=== PATIENT | female | born 1965 | race Caucasian/White ===

== ENCOUNTER 2018-08-22 12:54 | Inpatient (IN) | payer MEDICARE ==
[2018-08-22] MEDS ORDERED: Acetaminophen 500 MG TAB ONE (13:36)
[2018-08-22] MEDS ORDERED: Digoxin 0.5 MG/2 ML AMP ONE (17:16)
[2018-08-22] MEDS ORDERED: Ondansetron ODT 4 MG TAB PO PRN (20:53)
[2018-08-22] MEDS ORDERED: Diltiazem 125 MG in Sodium Chloride 0.9% 100 ML IVPB SCH (20:53)
[2018-08-22] MEDS ORDERED: Senokot S 8.6-50 MG TAB PO PRN (20:53)
[2018-08-22] MEDS ORDERED: Ondansetron PF 4 MG/2 ML Vial IVP PRN (20:53)
[2018-08-22] MEDS ORDERED: Acetaminophen 650 MG Suppository PR PRN (20:53)
[2018-08-22] MEDS ORDERED: Enoxaparin Sodium 30 MG/0.3 ML SYRINGE SC SCH (21:00)
[2018-08-22] MEDS: Diltiazem 125 MG in Sodium Chloride 0.9% 100 ML IVPB SCH (21:42)
[2018-08-22] MEDS: Acetaminophen 325 MG TAB PO PRN (21:43)
[2018-08-22] MEDS: clonazePAM 0.5 MG TAB PO SCH (21:43)
[2018-08-22] MEDS: Enoxaparin Sodium 100 MG/ML SYRINGE SC SCH (21:45)
[2018-08-22] MEDS: Famotidine 20 MG TAB PO SCH (21:46)
[2018-08-23] MEDS ORDERED: Furosemide 40 MG/4 ML VIAL SLOW IVP SCH ×2 (00:30→01:00)
[2018-08-23] MEDS: Furosemide 40 MG/4 ML VIAL SLOW IVP SCH ×2 (00:37→09:36)
--- NOTE | 2018-08-23 00:50 | PDOC.EVN ---
Event Note - Event Note Event Note: pt looks to be getting progressively tired and fatigued, due to increased respiratory effort, unable to lie flat, bilateral wheezing and crackles, milton give more lasix, nebs and bipap to help with respiratory effort, will monitor closely
[2018-08-23 00:51] LABS: Actual Bicarbonate (HCO3a) 30.6 mEq/L (22-28); Base Excess (BEa) 5.3 mEq/L (-2.0 to +3.0); CO2 Tension 48.1 mmHg (35.0-45.0); Carboxyhemoglobin (COHb) 1.3 gm% (0.0-3.0); Hemoglobin (Hb) 12.6 g/dL (12.0-16.0); O2 Tension (PaO2) 70.4 mmHg (80.0-100.0); pH, Arterial 7.42 (7.35-7.45)
[2018-08-23 00:52] LABS: ALV-art Gradient 126.155 (0-20); Calcium, Ionized 1.24 mmol/L (1.12-1.30); Potassium - ABG Lab 3.88 mmol/L (3.70-5.30); Puncture Site LRA
--- NOTE | 2018-08-23 01:33 | HP ---
PRIMARY CARE PHYSICIAN: Daryl Marc MD, in [place]. CHIEF COMPLAINT: Shortness of breath. HISTORY OF PRESENT ILLNESS: This is a 52-year-old white female with a past medical history of severe COPD on home oxygen of 3 L, as well as morbid obesity with previous bypass surgery and hypertension. She reports that she was in her normal state of health until about 2 to 3 days ago when she started getting significantly short of breath. Her oxygen was not helping her as much as previously and using nebulizers was not helping either. She noticed the shortness of breath was significantly worse when she laid down flat. She did not notice any peripheral edema at that time. The patient eventually came into the emergency room in [place]. There, she was noted to be hypoxic on 3 L into the 80s, had to be put on a non-rebreather and now just keep her in the low 90s and so, eventually she was put on a CPAP there with improvement in her oxygenation and shortness of breath. She was noted also to be in atrial fibrillation. This is new diagnosis of her with rapid ventricular rate in the 150s. She was given diltiazem boluses x2 and put on a drip. This helps her rate some, but still only into the mid to low 100s. The patient was also given a dose of Lasix and chest x-ray reportedly showed some vascular congestion. The patient was transferred here. On the way in the ambulance, she had some lower blood pressure, so her diltiazem drip was stopped. In the ER here, they were able to restart it, but she still had elevated rate. Dr. Hernandez was consulted and recommended starting digoxin. The patient got 0.5 mg dose of digoxin IV. Her heart rate has improved now about 100 since dropping below that as well and her breathing is much better. She is back on nasal cannula oxygen and saturating well. PAST MEDICAL HISTORY: 1. Hypertension. 2. COPD, on chronic oxygen. 3. Morbid obesity. PAST SURGICAL HISTORY: 1. Total abdominal hysterectomy. 2. Gastric bypass surgery, 8 years ago. PAST PSYCHIATRIC HISTORY: Anxiety. SOCIAL HISTORY: The patient used to smoke about a third to half pack per day for many years. Stopped 3 weeks ago. No alcohol or illicit drug use. She is disabled due to her COPD, used to work as a nurse in [place]. PAST FAMILY HISTORY: She denies knowledge of any family medical problems. ALLERGIES: NO KNOWN DRUG ALLERGIES. CURRENT MEDICATIONS: 1. Hydrochlorothiazide, unknown dose. 2. Clonazepam 2 mg at night. 3. Unknown nebulizer. REVIEW OF SYSTEMS: CONSTITUTIONAL: No fevers, no chills. EYES: No double vision or blurred vision. ENT: No congestion, drainage or sore throat. CARDIOVASCULAR: She has not noticed any chest pain or palpitations or racing heart. PULMONARY: See HPI. She has had a little bit of nonproductive cough. GASTROINTESTINAL: No abdominal pain. No nausea or vomiting. No diarrhea or constipation. GENITOURINARY: No dysuria or hematuria. MUSCULOSKELETAL: No muscle aches or joint pains. SKIN: No rashes or other lesions noted. NEUROLOGIC: She has not noticed any numbness, tingling, or focal weakness. PHYSICAL EXAMINATION: VITAL SIGNS: Blood pressure 127/82, pulse 113, respirations 24, temperature 98.0, and O2 saturation 95% on 3 L. GENERAL: This is a well-developed, obese white female with some mild increase in respiratory work of breathing. HEENT: Pupils are equal, round, and reactive to light. Oropharynx clear without lesions, erythema, or exudate. NECK: Supple. No lymphadenopathy. No thyroid nodules or enlargement. HEART: Irregularly irregular rhythm. Mild tachycardia. No murmurs, rubs, or gallops. LUNGS: Minimal crackles in the left base, otherwise clear to auscultation. Currently had significant crackles on initial presentation to the other ER. Decent air movement throughout. ABDOMEN: Soft, obese, nontender to palpation. Normoactive bowel sounds. No hepatosplenomegaly or other masses. EXTREMITIES: No clubbing, cyanosis, or edema. Good peripheral pulses. SKIN: No rashes or lesions noted. NEUROLOGIC: Intact strength and sensation in all extremities. No facial droop. LABORATORY DATA: CBC within normal limits. Coagulation profile with an INR of 1.4. D-dimer was 0.61. Complete metabolic panel is notable for sodium of 127, chloride of 93, glucose of 170, alkaline phosphatase 175. The rest was normal. Brain natriuretic peptide was elevated at 1000. Troponins are negative x3. Chest x- ray, I did review the chest x-ray done in the [place] [facility] along with the radiologist's report. The patient does have an enlarged cardiac silhouette and evidence of congestive failure. EKG done in the emergency room showed atrial fibrillation with rapid ventricular response. No other significant abnormalities. ASSESSMENT: 1. Acute on chronic hypoxic respiratory failure likely secondary to pulmonary congestion, improved now off CPAP, back on her home oxygen. We will monitor closely in the IMCU. We will give DuoNeb as needed. 2. Acute congestive heart failure. We will continue Lasix IV for control of rate. We will get echocardiogram in the morning. 3. New onset atrial fibrillation with rapid ventricular response. We will continue diltiazem drip and give digoxin daily as well. Dr. Hernandez has been consulted by the Emergency Room. We will put patient on full-dose Lovenox. 4. Chronic obstructive pulmonary disease, oxygen dependent. We will consult Dr. Higginbotham for assistance with managing this patient's chronic obstructive pulmonary disease issue. If she is not already on a steroid inhaler, she would likely benefit from one. 5. Gastrointestinal prophylaxis. Put the patient on Pepcid twice a day. 6. Deep venous thrombosis prophylaxis. The patient is already on Lovenox. 7. Hyponatremia. This is likely due to congestive heart failure. Will monitor for improvement with diuresis. 8. Code status. I did discuss this with the patient. She is a full code. Should she be incapacitated, she states that her daughter would be her medical decision maker. Her name is Paula Crane. Job ID: [id number] MTDD
[2018-08-23 06:07] LABS: #Lymphocytes 0.3 thou/uL (1.20-3.40); #Monocytes 0.3 thou/uL (0.11-0.59); #Neutrophils 3.6 thou/uL (1.40-6.50); %Eosinophils 0.1 % (0.0-10.0); %Lymphocytes 6.5 % (21.0-51.0); %Monocytes 6.5 % (0.0-10.0); %Neutrophils 86.9 % (42.0-75.0); Hemoglobin 12.9 g/dL (12.0-16.0); Mean Corpuscular HGB CONC 31.7 g/dL (32.0-36.0); Mean Corpuscular Volume 91.5 fL (78.0-98.0); Mean Platelet Volume 8.5 fL (7.4-10.4); Platelet Count 146 thou/uL (130-400); RBC Distribution Width 13.3 % (11.5-14.5); Red Blood Cell (RBC) Count 4.46 mill/uL (4.20-5.40); White Blood Cell (WBC) Count 4.1 thou/uL (4.8-10.8)
[2018-08-23 06:26] LABS: Anion Gap 13 mmol/L (10-20); BUN (Urea Nitrogen) 9 mg/dL (7.0-18.7); Calc. Creatinine Clearance 213 mL/min (70-130); Carbon Dioxide 27 mmol/L (22-29); Chloride 93 mmol/L (98-107); Estimated GFR-MDRD Greater than 90; Glucose 127 mg/dL (70-105); Potassium 3.7 mmol/L (3.5-5.1); Sodium 129 mmol/L (136-145)
[2018-08-23] MEDS: Famotidine 20 MG TAB PO SCH ×2 (09:33→20:45)
[2018-08-23] MEDS: Digoxin 0.25 MG TAB PO SCH (09:34)
[2018-08-23] MEDS: Enoxaparin Sodium 100 MG/ML SYRINGE SC SCH ×2 (09:34→20:46)
[2018-08-23] MEDS: Diltiazem 125 MG in Sodium Chloride 0.9% 100 ML IVPB SCH ×2 (10:07→23:05)
[2018-08-23] MEDS ORDERED: Digoxin 0.5 MG/2 ML AMP SLOW IVP SCH (10:15)
--- NOTE | 2018-08-23 11:50 | PDOC.PN ---
- Subjective Encounter Start Date: 08/23/18 Encounter Start Time: 10:45 Subjective: has sob, no c/o chest pain -: ate her breakfast this am -: no fever - Objective Resuscitation Status - Order Detail: 08/22/18 18:33 Resuscitation Status Routine Resuscitation Status: FULL: Full Resuscitation Discussed with: Shital WEBSTER Reviewed: Yes Vital Signs & Weight: Vital Signs (12 hours) Temp Pulse Resp Pulse Ox 08/23/18 10:55 127 H 31 H 92 L 08/23/18 10:10 137 H 08/23/18 09:34 137 H 08/23/18 07:32 137 H 32 H 92 L 08/23/18 07:25 97.0 F L 08/23/18 04:00 97.6 F 08/23/18 02:46 104 H 28 H 94 L 08/23/18 01:00 127 H 24 H 95 08/23/18 00:53 118 H 28 H 96 08/23/18 00:36 97.9 F Weight Weight 291 lb 4.8 oz Most Recent Monitor Data Heart Rate from ECG 151 NIBP 139/113 NIBP BP-Mean 121 Respiration from ECG 29 SpO2 88 I&O: 08/22/18 08/23/18 08/24/18 06:59 06:59 06:59 Intake Total 610 Output Total 2350 Balance -1740 Result Diagrams: 08/23/18 05:57 08/23/18 05:57 Additional Labs: Accuchecks 08/23/18 00:06 POC Glucose 128 H Phys Exam - Physical Examination HEENT: PERRLA, moist MMs Neck: no JVD, supple Respiratory: no rales wheezes+ Cardiovascular: no significant murmur, irregular Gastrointestinal: soft, non-tender, positive bowel sounds Musculoskeletal: no edema, pulses present Neurological: non-focal, moves all 4 limbs Psychiatric: A&O x 3 Dx/Plan (1) Atrial fibrillation with RVR Code(s): I48.91 - UNSPECIFIED ATRIAL FIBRILLATION Status: Acute (2) Acute exacerbation of CHF (congestive heart failure) Code(s): I50.9 - HEART FAILURE, UNSPECIFIED Status: Suspected Qualifiers: Heart failure type: diastolic Qualified Code(s): I50.33 - Acute on chronic diastolic (congestive) heart failure (3) Acute bronchitis Code(s): J20.9 - ACUTE BRONCHITIS, UNSPECIFIED Status: Acute Qualifiers: Bronchitis organism: unspecified organism Qualified Code(s): J20.9 - Acute bronchitis, unspecified (4) Obesity Code(s): E66.9 - OBESITY, UNSPECIFIED Status: Chronic (5) Anxiety disorder Code(s): F41.9 - ANXIETY DISORDER, UNSPECIFIED Status: Chronic Qualifiers: Anxiety disorder type: unspecified anxiety disorder Qualified Code(s): F41.9 - Anxiety disorder, unspecified (6) HTN (hypertension) Code(s): I10 - ESSENTIAL (PRIMARY) HYPERTENSION Status: Chronic Qualifiers: Hypertension type: essential hypertension Qualified Code(s): I10 - Essential (primary) hypertension - Plan is on cardizem drip, digoxin, lovenox full dose -: lasix, nebs, will add steroids with rapid taper -: echo, cardio consultation -: keep her on liq diet until her rvr settles down -: early mobilization in room * . Review of Systems - Medications/Allergies Allergies/Adverse Reactions: Allergies Allergy/AdvReac Type Severity Reaction Status Date / Time No Known Allergies Allergy Verified 08/22/18 20:50 Medications: Current Medications Acetaminophen (Tylenol) 650 mg PO Q4H PRN PRN Reason: Headache/Fever/Mild Pain (1-3) Last Admin: 08/22/18 21:43 Dose: 650 mg Acetaminophen (Tylenol) 650 mg [place] Q4H PRN PRN Reason: Headache/Fever/Mild Pain (1-3) Albuterol/Ipratropium (Duoneb) 3 ml NEB [id number] [facility] Last Admin: 08/23/18 10:55 Dose: 3 ml Clonazepam (Klonopin) 2 mg PO HS [facility] Last Admin: 08/22/18 21:43 Dose: 2 mg Digoxin (Lanoxin) 0.25 mg PO DAILY [facility] Last Admin: 08/23/18 09:34 Dose: 0.25 mg Digoxin (Lanoxin) 0.25 mg SLOW IVP NOW [facility] Stop: 08/23/18 12:15 Last Admin: 08/23/18 10:10 Dose: 0.25 mg Enoxaparin Sodium (Lovenox) 100 mg SC 0900,2100 [facility] Last Admin: 08/23/18 09:34 Dose: 100 mg Famotidine (Pepcid) 20 mg PO BID [facility] Last Admin: 08/23/18 09:33 Dose: 20 mg Furosemide (Lasix) 40 mg SLOW IVP DAILY [facility] Last Admin: 08/23/18 09:36 Dose: 40 mg Guaifenesin/Dextromethorphan (Robitussin Dm) 15 ml PO Q4H PRN PRN Reason: Cough Diltiazem HCl 125 mg/ Sodium (Chloride) 125 mls @ 10 mls/hr IVPB INF [facility] Last Admin: 08/23/18 10:07 Dose: 125 mls Ondansetron HCl (Zofran Odt) 4 mg PO Q6H PRN PRN Reason: Nausea/Vomiting Ondansetron HCl (Zofran) 4 mg IVP Q6H PRN PRN Reason: Nausea/Vomiting Senna/Docusate Sodium (Senokot S) 2 tab PO BIDPRN PRN PRN Reason: Constipation
[2018-08-23] MEDS ORDERED: Bacteriostatic Water 30 ML VIAL FS PRN (11:59)
[2018-08-23] MEDS: methylPREDNISolone Sod Succ 40 MG VIAL IVP SCH ×2 (14:15→22:26)
[2018-08-23] MEDS: Gabapentin 300 MG CAP PO SCH ×2 (14:15→20:45)
--- NOTE | 2018-08-23 15:05 | CON ---
DATE OF CONSULTATION: REASON FOR CONSULTATION: Atrial fibrillation, rapid ventricular response. HISTORY OF PRESENT ILLNESS: Ms. Crane is a pleasant 52-year-old woman with no significant past medical history except for anxiety and depression, who recently presented with shortness of breath and lower extremity edema. States this has occurred over the last 2 days. No chest pain, pressure, heart fluttering, or other associated symptoms noted. She presented to the emergency room with atrial fibrillation with RVR. This was felt to be a new finding. PAST MEDICAL HISTORY: Hypertension, COPD, obesity, total abdominal hysterectomy, gastric bypass. SOCIAL HISTORY: Previous tobacco use, recently stopped. No alcohol or illicit drug use. She is disabled due to her knees. ALLERGIES: NONE. MEDICATIONS: Include hydrochlorothiazide, clonazepam. REVIEW OF SYSTEMS: A 10-point review of systems is reviewed as above, otherwise negative. PHYSICAL EXAMINATION: GENERAL: Patient is a pleasant female who is in no acute distress. The patient appears their stated age. VITAL SIGNS: Blood pressure 144/112, pulse is 141, respirations 32. NEUROLOGIC: The patient is alert and oriented x3 with no focal neurologic deficits. HEENT: Sclerae without icterus. Mouth has moist mucous membranes with normal pallor. NECK: No JVD. Carotid upstroke brisk. No bruits bilaterally. LUNGS: Clear to auscultation with unlabored respirations. BACK: No scoliosis or kyphosis. CARDIAC: Irregularly irregular. ABDOMEN: Soft, nontender, nondistended. No peritoneal signs present. No hepatosplenomegaly. No abnormal striae. EXTREMITIES: 2+ femoral and 2+ dorsalis pedis pulses. No cyanosis, clubbing, or edema. SKIN: No gross abnormalities. PERTINENT LABORATORY DATA: 12.9, hemoglobin 14.8. Sodium 129. IMPRESSION: 1. Atrial fibrillation with rapid ventricular response. 2. Obesity. 3. Chronic obstructive pulmonary disease secondary to tobacco abuse. RECOMMENDATIONS: At this point, recommend continue rate control. She is currently on IV Cardizem at 10 mg IV per hour. We will re-bolus. We will add p.o. Cardizem. She has been given digoxin. If she continues to have issues, I would recommend cardioversion. We will add flecainide 50 mg p.o. b.i.d. Her LVEF appears normal. TSH also appears to be within normal limits. Job ID: [id number]
[2018-08-23] MEDS: busPIRone HCl 10 MG TAB PO SCH (20:44)
[2018-08-23] MEDS: Flecainide 50 MG TAB PO SCH (20:45)
[2018-08-23] MEDS: clonazePAM 0.5 MG TAB PO SCH (20:45)
--- NOTE | 2018-08-23 21:29 | CON ---
DATE OF CONSULTATION: HISTORY OF PRESENT ILLNESS: Ms. Crane is a 52-year-old female. She has never been in the hospital here. She has recently moved to this area. She does have a history she says of having "water in her lungs" in the past. She presented with rapid atrial fibrillation. She reports of having a history of atrial fibrillation in the past, she thinks. She was admitted with pulmonary edema. PAST MEDICAL HISTORY: Remarkable for 1. Hypertension. 2. Obesity. 3. Hysterectomy. 4. Gastric bypass surgery. 5. Degenerative arthritis in her knees. SOCIAL HISTORY: She has been a smoker most of her life. She is not smoking now. She says she does not drink or use drugs. MEDICATIONS: Prior to admission, she was on Klonopin for anxiety and hydrochlorothiazide. REVIEW OF SYSTEMS: A 10-point review of systems is otherwise negative. PHYSICAL EXAMINATION: GENERAL: She is very talkative, very pleasant, in no distress. VITAL SIGNS: She is 5 feet 7 inches, 291 pounds. BMI is 45.6. She is afebrile. Heart rate is in the 90s, blood pressure is 117/78, respiratory rate is 28. HEENT: Pupils are equal. Sclerae are anicteric. NECK: Supple. LUNGS: Remarkable for crackles correction up. HEART: with a rate of 120 when I saw her. ABDOMEN: Soft and nontender. Fairly generous. EXTREMITIES: Without clubbing, cyanosis. She does have stasis changes in both lower extremities. LABORATORY DATA: White count 4.1, hemoglobin 12.9, platelets 146. Sodium 129, potassium 3.7, chloride 93, bicarb 27, BUN 9, creatinine 0.66, glucose 127. PH 7.42, CO2 48, PO2 of 70. IMAGING: Chest radiograph shows pulmonary edema. IMPRESSION: Atrial fibrillation with cardiogenic pulmonary edema. Cardiology is being consulted. She says she is feeling better than when she came in. TIME SPENT: This is a 50-minute consult, 50% of the time was spent on the unit coordinating care. I will be happy to follow with the other physicians who are caring for. Job ID: [id number]
[2018-08-24] MEDS: methylPREDNISolone Sod Succ 40 MG VIAL IVP SCH ×3 (05:29→22:31)
[2018-08-24 07:48] LABS: #Lymphocytes 0.4 thou/uL (1.20-3.40); #Monocytes 0.3 thou/uL (0.11-0.59); #Neutrophils 2.6 thou/uL (1.40-6.50); %Basophils 0.4 % (0.0-1.0); %Eosinophils 0.2 % (0.0-10.0); %Lymphocytes 10.7 % (21.0-51.0); %Monocytes 8.3 % (0.0-10.0); %Neutrophils 80.4 % (42.0-75.0); Hemoglobin 12.9 g/dL (12.0-16.0); Mean Corpuscular HGB CONC 31.6 g/dL (32.0-36.0); Mean Corpuscular Volume 91.8 fL (78.0-98.0); Mean Platelet Volume 8.8 fL (7.4-10.4); Platelet Count 164 thou/uL (130-400); RBC Distribution Width 13.2 % (11.5-14.5); Red Blood Cell (RBC) Count 4.46 mill/uL (4.20-5.40); White Blood Cell (WBC) Count 3.3 thou/uL (4.8-10.8)
[2018-08-24 08:08] LABS: ALT (SGPT) 18 U/L (8-55); AST (SGOT) 30 U/L (5-34); Albumin 3.4 g/dL (3.5-5.0); Alkaline Phosphatase 139 U/L (40-150); Anion Gap 13 mmol/L (10-20); BUN (Urea Nitrogen) 11 mg/dL (7.0-18.7); Bilirubin, Total 0.8 mg/dL (0.2-1.2); Calc. Creatinine Clearance 206 mL/min (70-130); Calcium 9.2 mg/dL (7.8-10.44); Carbon Dioxide 32 mmol/L (22-29); Chloride 92 mmol/L (98-107); Estimated GFR-MDRD Greater than 90; Glucose 173 mg/dL (70-105); Potassium 3.6 mmol/L (3.5-5.1); Protein, Total 6.4 g/dL (6.0-8.3); Sodium 133 mmol/L (136-145)
[2018-08-24] MEDS ORDERED: (Vortioxetine Hydrobromide [Trintellix] 10 MG) PO SCH (09:00)
[2018-08-24] MEDS: busPIRone HCl 10 MG TAB PO SCH ×3 (09:09→20:21)
[2018-08-24] MEDS: Furosemide 40 MG/4 ML VIAL SLOW IVP SCH (09:10)
[2018-08-24] MEDS: Famotidine 20 MG TAB PO SCH ×2 (09:10→20:20)
[2018-08-24] MEDS: DULoxetine 30 MG CAP PO SCH (09:10)
[2018-08-24] MEDS: Digoxin 0.25 MG TAB PO SCH (09:10)
[2018-08-24] MEDS: Flecainide 50 MG TAB PO SCH ×2 (09:10→20:20)
[2018-08-24] MEDS: Gabapentin 300 MG CAP PO SCH ×3 (09:10→20:20)
[2018-08-24] MEDS: Enoxaparin Sodium 100 MG/ML SYRINGE SC SCH ×2 (09:11→20:20)
--- NOTE | 2018-08-24 13:32 | PDOC.PN ---
- Subjective Encounter Start Date: 08/24/18 Encounter Start Time: 11:00 Subjective: no sob or palp -: feels better -: was using bipap last night - Objective Resuscitation Status - Order Detail: 08/22/18 18:33 Resuscitation Status Routine Resuscitation Status: FULL: Full Resuscitation Discussed with: Patient DARIN Reviewed: Yes Vital Signs & Weight: Vital Signs (12 hours) Temp Pulse Pulse Pulse Resp BP BP 08/24/18 10:52 97.4 F L 08/24/18 10:13 96 23 H 08/24/18 09:10 92 08/24/18 09:00 95 103 H 125/97 H 117/61 08/24/18 07:45 08/24/18 07:04 97.0 F L 08/24/18 06:56 08/24/18 06:35 92 21 H 08/24/18 04:00 97.5 F L 08/24/18 02:23 84 25 H Pulse Ox Pulse Ox Pulse Ox 08/24/18 10:52 08/24/18 10:13 92 L 08/24/18 09:10 08/24/18 09:00 94 L 95 08/24/18 07:45 94 L 08/24/18 07:04 08/24/18 06:56 98 08/24/18 06:35 98 08/24/18 04:00 08/24/18 02:23 93 L Weight Weight 291 lb 4.8 oz Most Recent Monitor Data Heart Rate from ECG 84 NIBP 102/68 NIBP BP-Mean 79 Respiration from ECG 20 SpO2 98 I&O: 08/23/18 08/24/18 08/25/18 06:59 06:59 06:59 Intake Total 610 1845 Output Total 2350 3650 Balance -1740 -1805 Result Diagrams: 08/24/18 07:41 08/24/18 07:41 Phys Exam - Physical Examination HEENT: PERRLA, moist MMs Neck: no JVD, supple Respiratory: no wheezing, no rales Cardiovascular: no significant murmur, irregular Gastrointestinal: soft, non-tender, positive bowel sounds Musculoskeletal: no edema, pulses present Neurological: non-focal, moves all 4 limbs Psychiatric: normal affect, A&O x 3 Dx/Plan (1) Atrial fibrillation with RVR Code(s): I48.91 - UNSPECIFIED ATRIAL FIBRILLATION Status: Acute (2) Acute exacerbation of CHF (congestive heart failure) Code(s): I50.9 - HEART FAILURE, UNSPECIFIED Status: Acute Qualifiers: Heart failure type: diastolic Qualified Code(s): I50.33 - Acute on chronic diastolic (congestive) heart failure (3) Acute bronchitis Code(s): J20.9 - ACUTE BRONCHITIS, UNSPECIFIED Status: Acute Qualifiers: Bronchitis organism: unspecified organism Qualified Code(s): J20.9 - Acute bronchitis, unspecified (4) Obesity Code(s): E66.9 - OBESITY, UNSPECIFIED Status: Chronic (5) Anxiety disorder Code(s): F41.9 - ANXIETY DISORDER, UNSPECIFIED Status: Chronic Qualifiers: Anxiety disorder type: unspecified anxiety disorder Qualified Code(s): F41.9 - Anxiety disorder, unspecified (6) HTN (hypertension) Code(s): I10 - ESSENTIAL (PRIMARY) HYPERTENSION Status: Chronic Qualifiers: Hypertension type: essential hypertension Qualified Code(s): I10 - Essential (primary) hypertension (7) Acute respiratory failure with hypoxia Code(s): J96.01 - ACUTE RESPIRATORY FAILURE WITH HYPOXIA Status: Acute Comment: bipap prn - Plan is on cardizem oral, flecainide, digoxin -: ef per cardio is normal -: continue iv lasix -: to ambulate in hallway as tolerated -: is on lovenox full dose, may switch to noac? * . Review of Systems - Medications/Allergies Allergies/Adverse Reactions: Allergies Allergy/AdvReac Type Severity Reaction Status Date / Time No Known Allergies Allergy Verified 08/22/18 20:50 Medications: Current Medications Acetaminophen (Tylenol) 650 mg PO Q4H PRN PRN Reason: Headache/Fever/Mild Pain (1-3) Last Admin: 08/22/18 21:43 Dose: 650 mg Acetaminophen (Tylenol) 650 mg SD Q4H PRN PRN Reason: Headache/Fever/Mild Pain (1-3) Albuterol/Ipratropium (Duoneb) 3 ml NEB [id number] [facility] Last Admin: 08/24/18 10:13 Dose: 3 ml Alprazolam (Xanax) 1 mg PO QIDPRN PRN PRN Reason: Anxiety Buspirone HCl (Buspar) 15 mg PO BID [facility] Last Admin: 08/24/18 09:21 Dose: Not Given Clonazepam (Klonopin) 2 mg PO HS [facility] Last Admin: 08/23/18 20:45 Dose: 2 mg Digoxin (Lanoxin) 0.25 mg PO DAILY [facility] Last Admin: 08/24/18 09:10 Dose: 0.25 mg Diltiazem HCl (Cardizem) 90 mg PO ACHS [facility] Last Admin: 08/24/18 12:29 Dose: 90 mg Duloxetine HCl (Cymbalta) 30 mg PO DAILY [facility] Last Admin: 08/24/18 09:10 Dose: 30 mg Enoxaparin Sodium (Lovenox) 100 mg SC 0900,2100 [facility] Last Admin: 08/24/18 09:11 Dose: 100 mg Famotidine (Pepcid) 20 mg PO BID [facility] Last Admin: 08/24/18 09:10 Dose: 20 mg Flecainide Acetate (Tambocor) 50 mg PO Q12HR [facility] Last Admin: 08/24/18 09:10 Dose: 50 mg Furosemide (Lasix) 40 mg SLOW IVP DAILY [facility] Last Admin: 08/24/18 09:10 Dose: 40 mg Gabapentin (Neurontin) 300 mg PO TID [facility] Last Admin: 08/24/18 09:10 Dose: 300 mg Guaifenesin/Dextromethorphan (Robitussin Dm) 15 ml PO Q4H PRN PRN Reason: Cough Diltiazem HCl 125 mg/ Sodium (Chloride) 125 mls @ 2.5 mls/hr IVPB INF [facility] Methylprednisolone Sodium Succinate (Solu-Medrol) 20 mg IVP Q8HR [facility] Last Admin: 08/24/18 05:29 Dose: 20 mg (Vortioxetine Hydrobromide [ Trintellix] 10 Mg) 10 mg PO DAILY [facility] Ondansetron HCl (Zofran Odt) 4 mg PO Q6H PRN PRN Reason: Nausea/Vomiting Ondansetron HCl (Zofran) 4 mg IVP Q6H PRN PRN Reason: Nausea/Vomiting Senna/Docusate Sodium (Senokot S) 2 tab PO BIDPRN PRN PRN Reason: Constipation Sterile Water (Bacteriostatic Water) 1 ml FS PRN PRN PRN Reason: RECONSTITUTION
[2018-08-24 16:17] VITALS: BMI 47.3
--- NOTE | 2018-08-24 16:33 | PRG ---
DATE OF SERVICE: 08/24/2018 SUBJECTIVE: Tay Crane says she is feeling better. She is still in atrial fibrillation, better rate controlled. OBJECTIVE: VITAL SIGNS: She is afebrile. Heart rate is 94, respiratory rate 24, oximetry is 90 on 2.5 L, and blood pressure 102/68. LUNGS: Have cleared significantly. HEART: Irregular rhythm. ABDOMEN: Soft and nontender. LABORATORY DATA: White count 3.3, hemoglobin 12.9, platelets 164. Sodium 133, potassium 3.6, chloride 92, bicarb 32, BUN 11, and creatinine 0.68. Intake and outputs -1805. IMPRESSION: 1. Cardiogenic pulmonary edema with atrial fibrillation, appears to be stable. 2. Obesity, sleep apnea/sleep apnea suspect. 3. We will continue to follow. Job ID: [id number]
[2018-08-24] MEDS ORDERED: Albumin 25% 25 GM/100 ML BOT IVPB SCH (18:00)
--- NOTE | 2018-08-24 19:23 | PRG ---
DATE OF SERVICE: SUBJECTIVE: Ms. Crane is doing better today. Her heart rate is much improved on p.o. Cardizem and IV Cardizem. She was placed on 60 mg q.6 hours Cardizem yesterday. OBJECTIVE: VITAL SIGNS: Blood pressure 113/64, pulse 90, temperature afebrile. LUNGS: Clear to auscultation. HEART: Irregularly irregular. ABDOMEN: Soft, nontender, nondistended. EXTREMITIES: No edema. IMPRESSION: New onset atrial fibrillation. RECOMMENDATIONS: Overall LVEF appears normal. I have started flecainide. We will increase her p.o. Cardizem. We will decrease IV Cardizem. If she is rate controlled off IV Cardizem, we will then continue outpatient workup. If there is difficulty on rate control, we will then proceed with KOTA/cardioversion. She is also being covered with Lovenox. Job ID: [id number]
[2018-08-24] MEDS: clonazePAM 0.5 MG TAB PO SCH (20:20)
[2018-08-24] MEDS ORDERED: Diltiazem 125 MG in Sodium Chloride 0.9% 100 ML IVPB SCH (20:45)
[2018-08-25 05:30] LABS: Anion Gap 14 mmol/L (10-20); BUN (Urea Nitrogen) 19 mg/dL (7.0-18.7); Calc. Creatinine Clearance 194 mL/min (70-130); Calcium 9.2 mg/dL (7.8-10.44); Carbon Dioxide 34 mmol/L (22-29); Chloride 93 mmol/L (98-107); Estimated GFR-MDRD 82; Glucose 181 mg/dL (70-105); Potassium 3.5 mmol/L (3.5-5.1); Sodium 137 mmol/L (136-145)
[2018-08-25] MEDS: methylPREDNISolone Sod Succ 40 MG VIAL IVP SCH ×3 (06:40→21:34)
[2018-08-25] MEDS: Guaifenesin DM 100-10/5 ML UDCUP PO PRN ×2 (07:05→21:40)
[2018-08-25] MEDS: busPIRone HCl 10 MG TAB PO SCH ×2 (09:40→21:34)
[2018-08-25] MEDS: DULoxetine 30 MG CAP PO SCH (09:40)
[2018-08-25] MEDS: Digoxin 0.25 MG TAB PO SCH (09:43)
[2018-08-25] MEDS: Flecainide 50 MG TAB PO SCH (09:45)
[2018-08-25] MEDS: Gabapentin 300 MG CAP PO SCH ×3 (09:45→21:34)
[2018-08-25] MEDS: Famotidine 20 MG TAB PO SCH ×2 (09:45→21:34)
[2018-08-25] MEDS: Furosemide 40 MG/4 ML VIAL SLOW IVP SCH (09:45)
[2018-08-25] MEDS: Apixaban 5 MG TAB PO SCH ×2 (09:49→21:34)
[2018-08-25] MEDS: ALPRAZolam 0.5 MG TAB PO PRN (13:00)
--- NOTE | 2018-08-25 13:06 | EKG ---
Test Reason : Blood Pressure : / mmHG Vent. Rate : 092 BPM Atrial Rate : 357 BPM P-R Int : 000 ms QRS Dur : 084 ms QT Int : 390 ms P-R-T Axes : 000 053 050 degrees QTc Int : 482 ms Atrial fibrillation Low voltage QRS Prolonged QT Abnormal ECG Confirmed by LUISA GALLEGOS ([id number]) on 08/25/2018 1:05:39 PM Referred By: LILI Confirmed By:LUISA GALLEGOS
--- NOTE | 2018-08-25 14:38 | PDOC.PN ---
- Subjective Encounter Start Date: 08/25/18 Encounter Start Time: 11:10 Subjective: used bipap overnight, feels better now -: no palp or chest pain -: mobilized a bit yesterday, was sitting in chair - Objective Resuscitation Status - Order Detail: 08/22/18 18:33 Resuscitation Status Routine Resuscitation Status: FULL: Full Resuscitation Discussed with: Patient DARIN Reviewed: Yes Vital Signs & Weight: Vital Signs (12 hours) Temp Pulse Resp Pulse Ox 08/25/18 14:32 82 24 H 08/25/18 11:15 98.0 F 08/25/18 10:56 96 22 H 08/25/18 09:45 93 L 08/25/18 09:43 89 08/25/18 07:23 97.9 F 08/25/18 07:21 98 18 08/25/18 03:48 97.1 F L Weight Weight 302 lb 3.2 oz Most Recent Monitor Data Heart Rate from ECG 91 NIBP 127/81 NIBP BP-Mean 96 Respiration from ECG 18 SpO2 93 I&O: 08/24/18 08/25/18 08/26/18 06:59 06:59 06:59 Intake Total 1845 1350 Output Total 3650 2625 Balance -1805 -1275 Result Diagrams: 08/24/18 07:41 08/25/18 04:46 Phys Exam - Physical Examination HEENT: PERRLA, moist MMs Neck: no JVD, supple Respiratory: no wheezing, no rales distant breath sounds, rhonchi+ Cardiovascular: no significant murmur, irregular Gastrointestinal: soft, non-tender, positive bowel sounds Musculoskeletal: no edema, pulses present Neurological: non-focal, moves all 4 limbs Psychiatric: normal affect, A&O x 3 Dx/Plan (1) Atrial fibrillation with RVR Code(s): I48.91 - UNSPECIFIED ATRIAL FIBRILLATION Status: Acute (2) Acute exacerbation of CHF (congestive heart failure) Code(s): I50.9 - HEART FAILURE, UNSPECIFIED Status: Acute Qualifiers: Heart failure type: diastolic Qualified Code(s): I50.33 - Acute on chronic diastolic (congestive) heart failure (3) Acute bronchitis Code(s): J20.9 - ACUTE BRONCHITIS, UNSPECIFIED Status: Acute Qualifiers: Bronchitis organism: unspecified organism Qualified Code(s): J20.9 - Acute bronchitis, unspecified (4) Obesity Code(s): E66.9 - OBESITY, UNSPECIFIED Status: Chronic (5) Anxiety disorder Code(s): F41.9 - ANXIETY DISORDER, UNSPECIFIED Status: Chronic Qualifiers: Anxiety disorder type: unspecified anxiety disorder Qualified Code(s): F41.9 - Anxiety disorder, unspecified (6) HTN (hypertension) Code(s): I10 - ESSENTIAL (PRIMARY) HYPERTENSION Status: Chronic Qualifiers: Hypertension type: essential hypertension Qualified Code(s): I10 - Essential (primary) hypertension (7) Acute respiratory failure with hypoxia Code(s): J96.01 - ACUTE RESPIRATORY FAILURE WITH HYPOXIA Status: Acute Comment: bipap prn - Plan is on cardizem, flecainide and digoxin, watch for heart block/melvin -: lasix iv daily, eliquis bid -: to amb as tolerated -: buspirone, cymbalta and anxiety meds -: hemostable * . Review of Systems - Medications/Allergies Allergies/Adverse Reactions: Allergies Allergy/AdvReac Type Severity Reaction Status Date / Time No Known Allergies Allergy Verified 08/22/18 20:50 Medications: Current Medications Acetaminophen (Tylenol) 650 mg PO Q4H PRN PRN Reason: Headache/Fever/Mild Pain (1-3) Last Admin: 08/22/18 21:43 Dose: 650 mg Acetaminophen (Tylenol) 650 mg [place] Q4H PRN PRN Reason: Headache/Fever/Mild Pain (1-3) Albuterol/Ipratropium (Duoneb) 3 ml NEB [id number] [facility] Last Admin: 08/25/18 14:32 Dose: 3 ml Alprazolam (Xanax) 1 mg PO QIDPRN PRN PRN Reason: Anxiety Last Admin: 08/25/18 13:00 Dose: 1 mg Apixaban (Eliquis) 5 mg PO BID [facility] Last Admin: 08/25/18 09:49 Dose: 5 mg Buspirone HCl (Buspar) 15 mg PO BID [facility] Last Admin: 08/25/18 09:40 Dose: Not Given Clonazepam (Klonopin) 2 mg PO HS [facility] Last Admin: 08/24/18 20:20 Dose: 2 mg Digoxin (Lanoxin) 0.25 mg PO DAILY [facility] Last Admin: 08/25/18 09:43 Dose: 0.25 mg Diltiazem HCl (Cardizem Cd) 360 mg PO DAILY [facility] Last Admin: 08/25/18 09:43 Dose: 360 mg Duloxetine HCl (Cymbalta) 30 mg PO DAILY [facility] Last Admin: 08/25/18 09:40 Dose: 30 mg Famotidine (Pepcid) 20 mg PO BID [facility] Last Admin: 08/25/18 09:45 Dose: 20 mg Flecainide Acetate (Tambocor) 50 mg PO Q12HR [facility] Last Admin: 08/25/18 09:45 Dose: 50 mg Furosemide (Lasix) 40 mg SLOW IVP DAILY [facility] Last Admin: 08/25/18 09:45 Dose: 40 mg Gabapentin (Neurontin) 300 mg PO TID [facility] Last Admin: 08/25/18 14:21 Dose: 300 mg Guaifenesin/Dextromethorphan (Robitussin Dm) 15 ml PO Q4H PRN PRN Reason: Cough Last Admin: 08/25/18 07:05 Dose: 15 ml Methylprednisolone Sodium Succinate (Solu-Medrol) 20 mg IVP Q8HR [facility] Last Admin: 08/25/18 13:00 Dose: 20 mg (Vortioxetine Hydrobromide [ Trintellix] 10 Mg) 10 mg PO DAILY [facility] Ondansetron HCl (Zofran Odt) 4 mg PO Q6H PRN PRN Reason: Nausea/Vomiting Ondansetron HCl (Zofran) 4 mg IVP Q6H PRN PRN Reason: Nausea/Vomiting Senna/Docusate Sodium (Senokot S) 2 tab PO BIDPRN PRN PRN Reason: Constipation Sodium Chloride (Flush - Normal Saline) 10 ml IVF Q12HR [facility] Last Admin: 08/25/18 09:45 Dose: 10 ml Sodium Chloride (Flush - Normal Saline) 10 ml IVF PRN PRN PRN Reason: Saline Flush Last Admin: 08/25/18 06:40 Dose: 10 ml Sterile Water (Bacteriostatic Water) 1 ml FS PRN PRN PRN Reason: RECONSTITUTION
--- NOTE | 2018-08-25 15:07 | CON ---
DATE OF CONSULTATION: SUBJECTIVE: Ms. Crane is doing well. No current complaints. Her heart rate is much better controlled on off IV Cardizem and on p.o. Cardizem. OBJECTIVE: VITAL SIGNS: Blood pressure 127/81; pulse 82; temperature, afebrile. LUNGS: Clear to auscultation. HEART: Irregularly irregular. ABDOMEN: Soft, nontender, nondistended. EXTREMITIES: No edema. IMPRESSION: New onset atrial fibrillation. RECOMMENDATIONS: Etiology is none known. She likely has obstructive sleep apnea. This has never been tested. At this point, we will discontinue flecainide. We will restart as an outpatient. Plan is to proceed with cardioversion if she continues to have symptoms after she has been on anticoagulation for 3 to 4 weeks. I have started Eliquis 5 mg p.o. b.i.d. Otherwise, from my standpoint, plan is to follow up with Ms. Crane on an outpatient basis. Job ID: [id number]
--- NOTE | 2018-08-25 16:18 | PRG ---
DATE OF SERVICE: 08/25/2018 SUBJECTIVE: Tay Crane says she is feeling better. She still has crackles in her lung bases, but she is better. OBJECTIVE: VITAL SIGNS: She is afebrile. Heart rate is 82, respiratory rate is in the 20s, blood pressure is 127/81. LUNGS: As above. HEART: Regular rhythm. She appeared to be in atrial flutter when I was in the room. LABORATORY DATA: Sodium 137, potassium 3.5, chloride 93, bicarb 34, BUN 19, and creatinine 0.75. Intake and output -1275. IMPRESSION: Cardiogenic pulmonary edema. PLAN: Continue supportive care per Cardiology. Job ID: [id number]
[2018-08-25] MEDS: clonazePAM 0.5 MG TAB PO SCH (21:33)
[2018-08-26] MEDS: Guaifenesin DM 100-10/5 ML UDCUP PO PRN ×2 (04:17→21:05)
[2018-08-26] MEDS: methylPREDNISolone Sod Succ 40 MG VIAL IVP SCH ×2 (06:04→16:02)
[2018-08-26 08:59] LABS: Anion Gap 14 mmol/L (10-20); BUN (Urea Nitrogen) 20 mg/dL (7.0-18.7); Calc. Creatinine Clearance 208 mL/min (70-130); Calcium 9.2 mg/dL (7.8-10.44); Carbon Dioxide 34 mmol/L (22-29); Chloride 93 mmol/L (98-107); Estimated GFR-MDRD 89; Glucose 208 mg/dL (70-105); Potassium 3.6 mmol/L (3.5-5.1); Sodium 137 mmol/L (136-145)
[2018-08-26] MEDS: Apixaban 5 MG TAB PO SCH ×2 (09:31→20:16)
[2018-08-26] MEDS: Gabapentin 300 MG CAP PO SCH ×3 (09:31→20:16)
[2018-08-26] MEDS: DULoxetine 30 MG CAP PO SCH (09:31)
[2018-08-26] MEDS: Furosemide 40 MG/4 ML VIAL SLOW IVP SCH (09:31)
[2018-08-26] MEDS: Famotidine 20 MG TAB PO SCH ×2 (09:31→20:16)
[2018-08-26] MEDS: Digoxin 0.25 MG TAB PO SCH (09:32)
[2018-08-26] MEDS: busPIRone HCl 10 MG TAB PO SCH ×2 (09:32→20:17)
[2018-08-26] MEDS: ALPRAZolam 0.5 MG TAB PO PRN (09:44)
--- NOTE | 2018-08-26 10:14 | PRG ---
DATE OF SERVICE: 08/26/2018 SUBJECTIVE: Ms. Crane is resting comfortably. She is in no distress. Intake and output negative 780. OBJECTIVE: VITAL SIGNS: She is afebrile. Heart rate is 88, she is still in atrial fibrillation. Oximetry is 96% on 3 L. Blood pressure 129/90. LUNGS: Still remarkable for crackles at her bases. HEART: rhythm. ABDOMEN: Soft. LABORATORY DATA: White count 3.3, hemoglobin 12.9, platelets 164. Sodium 137, potassium 3.6, chloride 93, bicarb 34, BUN 20, creatinine 0.7. IMPRESSION: 1. Congestive heart failure with atrial fibrillation, anticoagulated. 2. Improving cardiogenic pulmonary edema. 3. Obesity. 4. Sleep apnea suspect. 5. Developing metabolic alkalosis associated with diuresis. 6. Diabetes. 7. Hypoalbuminemia. PLAN: Continue current supportive care. She is stable to move out of the intermediate care unit. Job ID: [id number]
--- NOTE | 2018-08-26 14:38 | PDOC.PN ---
- Subjective Encounter Start Date: 08/26/18 Encounter Start Time: 11:35 Subjective: feels better, no c/o palp or chest pain - Objective Resuscitation Status - Order Detail: 08/22/18 18:33 Resuscitation Status Routine Resuscitation Status: FULL: Full Resuscitation Discussed with: Shital WEBSTER Reviewed: Yes Vital Signs & Weight: Vital Signs (12 hours) Temp Pulse Pulse Pulse Resp BP BP 08/26/18 13:07 84 19 08/26/18 10:26 97.7 F 08/26/18 09:32 88 08/26/18 08:55 105 H 103 H 141/113 H 123/91 H 08/26/18 07:45 08/26/18 07:23 97.6 F 08/26/18 07:11 08/26/18 07:06 88 22 H 08/26/18 03:57 97.5 F L 08/26/18 02:47 87 19 Pulse Ox Pulse Ox Pulse Ox 08/26/18 13:07 95 08/26/18 10:26 08/26/18 09:32 08/26/18 08:55 94 L 95 08/26/18 07:45 94 L 08/26/18 07:23 08/26/18 07:11 96 08/26/18 07:06 96 08/26/18 03:57 08/26/18 02:47 94 L Weight Weight 302 lb 9.6 oz Most Recent Monitor Data Heart Rate from ECG 78 NIBP 134/89 NIBP BP-Mean 104 Respiration from ECG 15 SpO2 93 I&O: 08/25/18 08/26/18 08/27/18 06:59 06:59 06:59 Intake Total 1350 1220 Output Total 2625 2000 Balance -1275 -780 Result Diagrams: 08/24/18 07:41 08/26/18 08:04 Phys Exam - Physical Examination HEENT: PERRLA, moist MMs Neck: no JVD, supple Respiratory: no wheezing, no rales Cardiovascular: no significant murmur, irregular Gastrointestinal: soft, non-tender, positive bowel sounds Musculoskeletal: no edema, pulses present Neurological: non-focal, moves all 4 limbs Psychiatric: normal affect, A&O x 3 Dx/Plan (1) Atrial fibrillation with RVR Code(s): I48.91 - UNSPECIFIED ATRIAL FIBRILLATION Status: Acute (2) Acute exacerbation of CHF (congestive heart failure) Code(s): I50.9 - HEART FAILURE, UNSPECIFIED Status: Acute Qualifiers: Heart failure type: diastolic Qualified Code(s): I50.33 - Acute on chronic diastolic (congestive) heart failure (3) Acute bronchitis Code(s): J20.9 - ACUTE BRONCHITIS, UNSPECIFIED Status: Acute Qualifiers: Bronchitis organism: unspecified organism Qualified Code(s): J20.9 - Acute bronchitis, unspecified (4) Obesity Code(s): E66.9 - OBESITY, UNSPECIFIED Status: Chronic (5) Anxiety disorder Code(s): F41.9 - ANXIETY DISORDER, UNSPECIFIED Status: Chronic Qualifiers: Anxiety disorder type: unspecified anxiety disorder Qualified Code(s): F41.9 - Anxiety disorder, unspecified (6) HTN (hypertension) Code(s): I10 - ESSENTIAL (PRIMARY) HYPERTENSION Status: Chronic Qualifiers: Hypertension type: essential hypertension Qualified Code(s): I10 - Essential (primary) hypertension (7) Acute respiratory failure with hypoxia Code(s): J96.01 - ACUTE RESPIRATORY FAILURE WITH HYPOXIA Status: Resolved - Plan is off bipap from day before night -: on cardizem, digoxin and eliquis -: nebs, prednisone -: to amb in hallway -: remove currie, oral lasix * . Review of Systems - Medications/Allergies Allergies/Adverse Reactions: Allergies Allergy/AdvReac Type Severity Reaction Status Date / Time No Known Allergies Allergy Verified 08/22/18 20:50 Medications: Current Medications Acetaminophen (Tylenol) 650 mg PO Q4H PRN PRN Reason: Headache/Fever/Mild Pain (1-3) Last Admin: 08/22/18 21:43 Dose: 650 mg Acetaminophen (Tylenol) 650 mg [place] Q4H PRN PRN Reason: Headache/Fever/Mild Pain (1-3) Albuterol/Ipratropium (Duoneb) 3 ml NEB [id number] [facility] Last Admin: 08/26/18 13:07 Dose: 3 ml Alprazolam (Xanax) 1 mg PO QIDPRN PRN PRN Reason: Anxiety Last Admin: 08/26/18 09:44 Dose: 1 mg Apixaban (Eliquis) 5 mg PO BID [facility] Last Admin: 08/26/18 09:31 Dose: 5 mg Buspirone HCl (Buspar) 15 mg PO BID [facility] Last Admin: 08/26/18 09:32 Dose: Not Given Clonazepam (Klonopin) 2 mg PO HS [facility] Last Admin: 08/25/18 21:33 Dose: 2 mg Digoxin (Lanoxin) 0.25 mg PO DAILY [facility] Last Admin: 08/26/18 09:32 Dose: 0.25 mg Diltiazem HCl (Cardizem Cd) 360 mg PO DAILY [facility] Last Admin: 08/26/18 09:31 Dose: 360 mg Duloxetine HCl (Cymbalta) 30 mg PO DAILY [facility] Last Admin: 08/26/18 09:31 Dose: 30 mg Famotidine (Pepcid) 20 mg PO BID [facility] Last Admin: 08/26/18 09:31 Dose: 20 mg Furosemide (Lasix) 40 mg SLOW IVP DAILY [facility] Last Admin: 08/26/18 09:31 Dose: 40 mg Gabapentin (Neurontin) 300 mg PO TID [facility] Last Admin: 08/26/18 09:31 Dose: 300 mg Guaifenesin/Dextromethorphan (Robitussin Dm) 15 ml PO Q4H PRN PRN Reason: Cough Last Admin: 08/26/18 04:17 Dose: 15 ml Methylprednisolone Sodium Succinate (Solu-Medrol) 20 mg IVP Q8HR [facility] Last Admin: 08/26/18 06:04 Dose: 20 mg (Vortioxetine Hydrobromide [ Trintellix] 10 Mg) 10 mg PO DAILY [facility] Ondansetron HCl (Zofran Odt) 4 mg PO Q6H PRN PRN Reason: Nausea/Vomiting Ondansetron HCl (Zofran) 4 mg IVP Q6H PRN PRN Reason: Nausea/Vomiting Senna/Docusate Sodium (Senokot S) 2 tab PO BIDPRN PRN PRN Reason: Constipation Sodium Chloride (Flush - Normal Saline) 10 ml IVF Q12HR [facility] Last Admin: 08/26/18 09:32 Dose: 10 ml Sodium Chloride (Flush - Normal Saline) 10 ml IVF PRN PRN PRN Reason: Saline Flush Last Admin: 08/26/18 06:04 Dose: 10 ml Sterile Water (Bacteriostatic Water) 1 ml FS PRN PRN PRN Reason: RECONSTITUTION
[2018-08-26] MEDS: clonazePAM 0.5 MG TAB PO SCH (20:16)
[2018-08-27 04:57] LABS: Anion Gap 14 mmol/L (10-20); BUN (Urea Nitrogen) 20 mg/dL (7.0-18.7); Calc. Creatinine Clearance 214 mL/min (70-130); Carbon Dioxide 35 mmol/L (22-29); Chloride 92 mmol/L (98-107); Estimated GFR-MDRD Greater than 90; Glucose 123 mg/dL (70-105); Potassium 3.5 mmol/L (3.5-5.1); Sodium 137 mmol/L (136-145)
[2018-08-27] MEDS: predniSONE 5 MG TAB PO SCH (08:53)
[2018-08-27] MEDS: DULoxetine 30 MG CAP PO SCH (08:53)
[2018-08-27] MEDS: Gabapentin 300 MG CAP PO SCH ×3 (08:54→21:26)
[2018-08-27] MEDS: Furosemide 40 MG TAB PO SCH (08:54)
[2018-08-27] MEDS: busPIRone HCl 10 MG TAB PO SCH ×2 (08:54→21:27)
[2018-08-27] MEDS: Digoxin 0.25 MG TAB PO SCH (08:54)
[2018-08-27] MEDS: Apixaban 5 MG TAB PO SCH ×2 (08:54→21:25)
[2018-08-27] MEDS: Famotidine 20 MG TAB PO SCH ×2 (08:54→21:26)
[2018-08-27] MEDS: ALPRAZolam 0.5 MG TAB PO PRN (11:29)
--- NOTE | 2018-08-27 15:57 | PDOC.PN ---
- Subjective Encounter Start Date: 08/27/18 Encounter Start Time: 10:40 Subjective: no sob or chest pain -: slept well on nasal canula - Objective Resuscitation Status - Order Detail: 08/22/18 18:33 Resuscitation Status Routine Resuscitation Status: FULL: Full Resuscitation Discussed with: Patient DARIN Reviewed: Yes Vital Signs & Weight: Vital Signs (12 hours) Temp Pulse Resp Pulse Ox 08/27/18 15:31 75 17 08/27/18 15:18 96.9 F L 08/27/18 11:20 95.8 F L 08/27/18 10:51 87 16 96 08/27/18 08:54 96 08/27/18 08:00 98 08/27/18 07:01 96.3 F L 08/27/18 06:27 94 L 08/27/18 06:25 73 17 94 L 08/27/18 04:26 97.8 F Weight Weight 291 lb 3.2 oz Most Recent Monitor Data Heart Rate from ECG 79 NIBP 126/94 NIBP BP-Mean 104 Respiration from ECG 24 SpO2 95 I&O: 08/26/18 08/27/18 08/28/18 06:59 06:59 07:59 Intake Total 1220 1360 Output Total 2000 3000 Balance -780 -1640 Result Diagrams: 08/24/18 07:41 08/27/18 04:18 Phys Exam - Physical Examination HEENT: PERRLA, moist MMs Neck: no JVD, supple Respiratory: no wheezing, no rales Cardiovascular: no significant murmur, irregular Gastrointestinal: soft, no distention, positive bowel sounds Musculoskeletal: no edema, pulses present Neurological: non-focal, moves all 4 limbs Psychiatric: normal affect, A&O x 3 Dx/Plan (1) Atrial fibrillation with RVR Code(s): I48.91 - UNSPECIFIED ATRIAL FIBRILLATION Status: Acute (2) Acute exacerbation of CHF (congestive heart failure) Code(s): I50.9 - HEART FAILURE, UNSPECIFIED Status: Acute Qualifiers: Heart failure type: diastolic Qualified Code(s): I50.33 - Acute on chronic diastolic (congestive) heart failure (3) Acute bronchitis Code(s): J20.9 - ACUTE BRONCHITIS, UNSPECIFIED Status: Acute Qualifiers: Bronchitis organism: unspecified organism Qualified Code(s): J20.9 - Acute bronchitis, unspecified (4) Obesity Code(s): E66.9 - OBESITY, UNSPECIFIED Status: Chronic (5) Anxiety disorder Code(s): F41.9 - ANXIETY DISORDER, UNSPECIFIED Status: Chronic Qualifiers: Anxiety disorder type: unspecified anxiety disorder Qualified Code(s): F41.9 - Anxiety disorder, unspecified (6) HTN (hypertension) Code(s): I10 - ESSENTIAL (PRIMARY) HYPERTENSION Status: Chronic Qualifiers: Hypertension type: essential hypertension Qualified Code(s): I10 - Essential (primary) hypertension (7) Acute respiratory failure with hypoxia Code(s): J96.01 - ACUTE RESPIRATORY FAILURE WITH HYPOXIA Status: Resolved - Plan has been off bipap from last 48hrs -: afib is rate controlled on digoxin, cardizem CD -: asp, eliquis, prednisone, nebs -: hemostable -: dc plan in am if ok with cardiology * . Review of Systems - Medications/Allergies Allergies/Adverse Reactions: Allergies Allergy/AdvReac Type Severity Reaction Status Date / Time No Known Allergies Allergy Verified 08/22/18 20:50 Medications: Current Medications Acetaminophen (Tylenol) 650 mg PO Q4H PRN PRN Reason: Headache/Fever/Mild Pain (1-3) Last Admin: 08/22/18 21:43 Dose: 650 mg Acetaminophen (Tylenol) 650 mg [place] Q4H PRN PRN Reason: Headache/Fever/Mild Pain (1-3) Albuterol/Ipratropium (Duoneb) 3 ml NEB [id number] [facility] Last Admin: 08/27/18 15:31 Dose: 3 ml Alprazolam (Xanax) 1 mg PO QIDPRN PRN PRN Reason: Anxiety Last Admin: 08/27/18 11:29 Dose: 1 mg Apixaban (Eliquis) 5 mg PO BID [facility] Last Admin: 08/27/18 08:54 Dose: 5 mg Buspirone HCl (Buspar) 15 mg PO BID [facility] Last Admin: 08/27/18 08:54 Dose: Not Given Clonazepam (Klonopin) 2 mg PO HS [facility] Last Admin: 08/26/18 20:16 Dose: 2 mg Digoxin (Lanoxin) 0.25 mg PO DAILY [facility] Last Admin: 08/27/18 08:54 Dose: 0.25 mg Diltiazem HCl (Cardizem Cd) 360 mg PO DAILY [facility] Last Admin: 08/27/18 08:54 Dose: 360 mg Duloxetine HCl (Cymbalta) 30 mg PO DAILY [facility] Last Admin: 08/27/18 08:53 Dose: 30 mg Famotidine (Pepcid) 20 mg PO BID [facility] Last Admin: 08/27/18 08:54 Dose: 20 mg Furosemide (Lasix) 40 mg PO DAILY[facility] Last Admin: 08/27/18 08:54 Dose: 40 mg Gabapentin (Neurontin) 300 mg PO TID [facility] Last Admin: 08/27/18 14:31 Dose: 300 mg Guaifenesin/Dextromethorphan (Robitussin Dm) 15 ml PO Q4H PRN PRN Reason: Cough Last Admin: 08/26/18 21:05 Dose: 15 ml (Vortioxetine Hydrobromide [ Trintellix] 10 Mg) 10 mg PO DAILY [facility] Ondansetron HCl (Zofran Odt) 4 mg PO Q6H PRN PRN Reason: Nausea/Vomiting Ondansetron HCl (Zofran) 4 mg IVP Q6H PRN PRN Reason: Nausea/Vomiting Prednisone (Prednisone) 5 mg PO QAM-WM [facility] Last Admin: 08/27/18 08:53 Dose: 5 mg Senna/Docusate Sodium (Senokot S) 2 tab PO BIDPRN PRN PRN Reason: Constipation Sodium Chloride (Flush - Normal Saline) 10 ml IVF Q12HR [facility] Last Admin: 08/27/18 08:55 Dose: 10 ml Sodium Chloride (Flush - Normal Saline) 10 ml IVF PRN PRN PRN Reason: Saline Flush Last Admin: 08/26/18 06:04 Dose: 10 ml Sterile Water (Bacteriostatic Water) 1 ml FS PRN PRN PRN Reason: RECONSTITUTION
[2018-08-27] MEDS: clonazePAM 0.5 MG TAB PO SCH (21:25)
[2018-08-28 05:19] LABS: Hemoglobin 13.1 g/dL (12.0-16.0); Platelet Count 192 thou/uL (130-400)
[2018-08-28 05:34] LABS: Calc. Creatinine Clearance 234 mL/min (70-130); Estimated GFR-MDRD Greater than 90
[2018-08-28 05:36] LABS: Anion Gap 14 mmol/L (10-20); BUN (Urea Nitrogen) 19 mg/dL (7.0-18.7); Calc. Creatinine Clearance 219 mL/min (70-130); Calcium 8.6 mg/dL (7.8-10.44); Carbon Dioxide 34 mmol/L (22-29); Chloride 93 mmol/L (98-107); Estimated GFR-MDRD Greater than 90; Glucose 115 mg/dL (70-105); Potassium 3.5 mmol/L (3.5-5.1); Sodium 137 mmol/L (136-145)
[2018-08-28] MEDS: Digoxin 0.25 MG TAB PO SCH (09:38)
[2018-08-28] MEDS: DULoxetine 30 MG CAP PO SCH (09:38)
[2018-08-28] MEDS: Apixaban 5 MG TAB PO SCH ×2 (09:38→21:43)
[2018-08-28] MEDS: Famotidine 20 MG TAB PO SCH ×2 (09:39→21:44)
[2018-08-28] MEDS: busPIRone HCl 10 MG TAB PO SCH ×2 (09:39→21:44)
[2018-08-28] MEDS: Gabapentin 300 MG CAP PO SCH ×3 (09:39→21:43)
[2018-08-28] MEDS: predniSONE 5 MG TAB PO SCH (09:39)
[2018-08-28] MEDS: Furosemide 40 MG TAB PO SCH (09:39)
[2018-08-28] MEDS: ALPRAZolam 0.5 MG TAB PO PRN (13:42)
--- NOTE | 2018-08-28 14:29 | PDOC.PN ---
- Subjective Encounter Start Date: 08/28/18 Encounter Start Time: 10:35 Subjective: no sob or chest pain or palp -: slept well last night - Objective Resuscitation Status - Order Detail: 08/22/18 18:33 Resuscitation Status Routine Resuscitation Status: FULL: Full Resuscitation Discussed with: Patient DARIN Reviewed: Yes Vital Signs & Weight: Vital Signs (12 hours) Temp Pulse Resp BP Pulse Ox 08/28/18 12:00 97.9 F 84 18 108/71 95 08/28/18 11:09 87 14 97 08/28/18 09:38 94 08/28/18 07:36 97.6 F 94 18 121/74 96 08/28/18 06:50 83 16 94 L 08/28/18 04:05 97.7 F 81 20 133/81 94 L 08/28/18 01:39 71 14 96 Weight Weight 303 lb Most Recent Monitor Data Heart Rate from ECG 81 NIBP 134/98 NIBP BP-Mean 110 Respiration from ECG 17 SpO2 95 I&O: 08/27/18 08/28/18 08/29/18 05:59 06:59 06:59 Intake Total 240 Output Total Balance 240 Result Diagrams: 08/28/18 04:34 08/28/18 04:34 Phys Exam - Physical Examination HEENT: PERRLA, moist MMs Neck: no JVD, supple Respiratory: no wheezing, no rales Cardiovascular: no significant murmur, irregular Gastrointestinal: soft, non-tender, no distention, positive bowel sounds Musculoskeletal: no edema, pulses present Neurological: non-focal, moves all 4 limbs Psychiatric: normal affect, A&O x 3 Dx/Plan (1) Atrial fibrillation with RVR Code(s): I48.91 - UNSPECIFIED ATRIAL FIBRILLATION Status: Acute Comment: rate controlled (2) Acute exacerbation of CHF (congestive heart failure) Code(s): I50.9 - HEART FAILURE, UNSPECIFIED Status: Acute Qualifiers: Heart failure type: diastolic Qualified Code(s): I50.33 - Acute on chronic diastolic (congestive) heart failure (3) Acute bronchitis Code(s): J20.9 - ACUTE BRONCHITIS, UNSPECIFIED Status: Resolved Qualifiers: Bronchitis organism: unspecified organism Qualified Code(s): J20.9 - Acute bronchitis, unspecified (4) Obesity Code(s): E66.9 - OBESITY, UNSPECIFIED Status: Chronic Qualifiers: Obesity type: with alveolar hypoventilation Body mass index: BMI 45.0-49.9 (5) Anxiety disorder Code(s): F41.9 - ANXIETY DISORDER, UNSPECIFIED Status: Chronic Qualifiers: Anxiety disorder type: unspecified anxiety disorder Qualified Code(s): F41.9 - Anxiety disorder, unspecified (6) HTN (hypertension) Code(s): I10 - ESSENTIAL (PRIMARY) HYPERTENSION Status: Chronic Qualifiers: Hypertension type: essential hypertension Qualified Code(s): I10 - Essential (primary) hypertension (7) Acute respiratory failure with hypoxia Code(s): J96.01 - ACUTE RESPIRATORY FAILURE WITH HYPOXIA Status: Resolved - Plan is on asp, eliquis, cardizem cd, digoxin and lasix -: nebs prn, cymbalta, buspar and klonopin -: dc currie, taper and dc nasal O2 for 90% spo2 -: to ambulate in hallway -: dc plan in am, may need home oxygen and outpt sleep study * . Review of Systems - Medications/Allergies Allergies/Adverse Reactions: Allergies Allergy/AdvReac Type Severity Reaction Status Date / Time No Known Allergies Allergy Verified 08/22/18 20:50 Medications: Current Medications Acetaminophen (Tylenol) 650 mg PO Q4H PRN PRN Reason: Headache/Fever/Mild Pain (1-3) Last Admin: 08/22/18 21:43 Dose: 650 mg Acetaminophen (Tylenol) 650 mg GA Q4H PRN PRN Reason: Headache/Fever/Mild Pain (1-3) Albuterol/Ipratropium (Duoneb) 3 ml NEB [id number] ELVIS Last Admin: 08/28/18 11:09 Dose: 3 ml Alprazolam (Xanax) 1 mg PO QIDPRN PRN PRN Reason: Anxiety Last Admin: 08/28/18 13:42 Dose: 1 mg Apixaban (Eliquis) 5 mg PO BID [facility] Last Admin: 08/28/18 09:38 Dose: 5 mg Buspirone HCl (Buspar) 15 mg PO BID [facility] Last Admin: 08/28/18 09:39 Dose: Not Given Clonazepam (Klonopin) 2 mg PO HS [facility] Last Admin: 08/27/18 21:25 Dose: 2 mg Digoxin (Lanoxin) 0.25 mg PO DAILY [facility] Last Admin: 08/28/18 09:38 Dose: 0.25 mg Diltiazem HCl (Cardizem Cd) 360 mg PO DAILY [facility] Last Admin: 08/28/18 09:39 Dose: 360 mg Duloxetine HCl (Cymbalta) 30 mg PO DAILY [facility] Last Admin: 08/28/18 09:38 Dose: 30 mg Famotidine (Pepcid) 20 mg PO BID [facility] Last Admin: 08/28/18 09:39 Dose: 20 mg Furosemide (Lasix) 40 mg PO DAILY-AC [facility] Last Admin: 08/28/18 09:39 Dose: 40 mg Gabapentin (Neurontin) 300 mg PO TID [facility] Last Admin: 08/28/18 09:39 Dose: 300 mg Guaifenesin/Dextromethorphan (Robitussin Dm) 15 ml PO Q4H PRN PRN Reason: Cough Last Admin: 08/26/18 21:05 Dose: 15 ml (Vortioxetine Hydrobromide [ Trintellix] 10 Mg) 10 mg PO DAILY [facility] Ondansetron HCl (Zofran Odt) 4 mg PO Q6H PRN PRN Reason: Nausea/Vomiting Ondansetron HCl (Zofran) 4 mg IVP Q6H PRN PRN Reason: Nausea/Vomiting Prednisone (Prednisone) 5 mg PO QAM[facility] Last Admin: 08/28/18 09:39 Dose: 5 mg Senna/Docusate Sodium (Senokot S) 2 tab PO BIDPRN PRN PRN Reason: Constipation Sodium Chloride (Flush - Normal Saline) 10 ml IVF Q12HR [facility] Last Admin: 08/28/18 09:40 Dose: 10 ml Sodium Chloride (Flush - Normal Saline) 10 ml IVF PRN PRN PRN Reason: Saline Flush Last Admin: 08/26/18 06:04 Dose: 10 ml Sterile Water (Bacteriostatic Water) 1 ml FS PRN PRN PRN Reason: RECONSTITUTION
[2018-08-28] MEDS: Acetaminophen 325 MG TAB PO PRN (21:42)
[2018-08-28] MEDS: clonazePAM 0.5 MG TAB PO SCH (21:42)
[2018-08-29 05:33] LABS: Anion Gap 12 mmol/L (10-20); BUN (Urea Nitrogen) 15 mg/dL (7.0-18.7); Calc. Creatinine Clearance 200 mL/min (70-130); Calcium 8.7 mg/dL (7.8-10.44); Carbon Dioxide 34 mmol/L (22-29); Chloride 95 mmol/L (98-107); Estimated GFR-MDRD 84; Glucose 189 mg/dL (70-105); Potassium 3.9 mmol/L (3.5-5.1); Sodium 137 mmol/L (136-145)
[2018-08-29] MEDS: busPIRone HCl 10 MG TAB PO SCH (09:11)
[2018-08-29] MEDS: Digoxin 0.25 MG TAB PO SCH (09:11)
[2018-08-29] MEDS: Apixaban 5 MG TAB PO SCH (09:11)
[2018-08-29] MEDS: Furosemide 40 MG TAB PO SCH (09:11)
[2018-08-29] MEDS: predniSONE 5 MG TAB PO SCH (09:11)
[2018-08-29] MEDS: Famotidine 20 MG TAB PO SCH (09:12)
[2018-08-29] MEDS: Gabapentin 300 MG CAP PO SCH ×2 (09:12→14:10)
[2018-08-29] MEDS: DULoxetine 30 MG CAP PO SCH (09:12)
[2018-08-29 11:52] VITALS: BP 116/75; TEMP 97.5
[2018-08-29] MEDS: ALPRAZolam 0.5 MG TAB PO PRN (11:54)
== END 2018-08-29 19:00 | disposition home or self-care (01) | DRG 291 ==
LOC: ERS 12:54 → IMCU/EMU 17:12 → 2NO 08-27 09:03
PROVIDERS: ADMIT Emergency Medicine; ATTEND Emergency Medicine
DX: I11.0 Hypertensive heart disease with heart failure (principal); J96.21 Acute and chronic respiratory failure with hypoxia; E87.1 Hypo-osmolality and hyponatremia; J44.0 Chronic obstructive pulmonary disease with (acute) lower respiratory infection; Z68.42 Body mass index [BMI] 45.0-49.9, adult; E87.2 Acidosis; I50.33 Acute on chronic diastolic (congestive) heart failure; Z99.81 Dependence on supplemental oxygen; I48.91 Unspecified atrial fibrillation; J20.9 Acute bronchitis, unspecified; F41.9 Anxiety disorder, unspecified; E66.9 Obesity, unspecified; E11.9 Type 2 diabetes mellitus without complications; Z87.891 Personal history of nicotine dependence
CPT/HCPCS: 36415; 36416; 80048; 80053; 82805; 85014; 85018; 85025; 85049; 90471; 90686; 90732; 93005; 93010; 93306; 93798; 94640; 94660; 96365; 96366; 96375; 96376; G0008; G0009; J1160; J1650; J1940; J2920; J7050; J7512; J7620

== ENCOUNTER 2018-09-03 12:40 | Inpatient (IN) | payer MEDICARE ==
[2018-09-03] MEDS ORDERED: ISOVUE-370 76%-LOCM 1 ML ONE (12:55)
[2018-09-03 13:09] LABS: #Lymphocytes 0.9 thou/uL (1.20-3.40); #Monocytes 0.7 thou/uL (0.11-0.59); %Basophils 0.2 % (0.0-1.0); %Eosinophils 0.2 % (0.0-10.0); %Lymphocytes 7.3 % (21.0-51.0); %Monocytes 5.3 % (0.0-10.0); Hemoglobin 11.5 g/dL (12.0-16.0); Mean Corpuscular Hemoglobin 28.7 pg (27.0-31.0); Mean Corpuscular Volume 89.8 fL (78.0-98.0); Mean Platelet Volume 7.9 fL (7.4-10.4); Platelet Count 308 thou/uL (130-400); RBC Distribution Width 13.8 % (11.5-14.5); Red Blood Cell (RBC) Count 3.99 mill/uL (4.20-5.40); White Blood Cell (WBC) Count 12.6 thou/uL (4.8-10.8)
[2018-09-03 13:33] LABS: ALT (SGPT) 9 U/L (8-55); AST (SGOT) 9 U/L (5-34); Albumin 2.8 g/dL (3.5-5.0); Alkaline Phosphatase 149 U/L (40-150); Anion Gap 13 mmol/L (10-20); BUN (Urea Nitrogen) 8 mg/dL (9.8-20.1); Bilirubin, Total 1.3 mg/dL (0.2-1.2); CK (CPK) 24 U/L (29-168); Calc. Creatinine Clearance 0 mL/min (70-130); Calcium 8.4 mg/dL (7.8-10.44); Carbon Dioxide 24 mmol/L (22-29); Chloride 101 mmol/L (98-107); Estimated GFR-MDRD Greater than 90; Globulin 3.1 g/dL (2.4-3.5); Glucose 158 mg/dL (70-105); Potassium 4.2 mmol/L (3.5-5.1); Protein, Total 5.9 g/dL (6.0-8.3); Sodium 134 mmol/L (136-145)
--- NOTE | 2018-09-03 13:35 | RAD ---
PORTABLE CHEST: Date: 09/03/18 INDICATION: Dyspnea. COMPARISON: 08/22/18. FINDINGS/IMPRESSION: Mild cardiomegaly. Vascular congestion. Patchy atelectasis, infiltrate, or edema in the lung bases, s imilar to the prior exam. POS: [facility]
--- NOTE | 2018-09-03 14:00 | CT ---
CTA CHEST WITH CONTRAST: Date: 09/03/18 Multiple axial tomograms obtained through chest following an angio protocol with multiplanar reconstr uction and 3D postprocessing. INDICATION: Shortness of breath. Atrial fibrillation. FINDINGS: Pulmonary arteries show adequate opacification. No evidence of pulmonary embolus. The lung hayes show vascular congestion. Lungs show diffuse bilateral ground-glass opacities consist ent with edema and/or infiltrates. No significant effusion. Nonspecific mediastinal adenopathy. An en larged paratracheal lymph node on the right measures up to 2.0 cm. Nonspecific bilateral hilar adenop athy. Thoracic aorta is unremarkable with no evidence of dissection. Upper abdomen unremarkable. IMPRESSION: 1. No evidence of pulmonary embolus. 2. Cardiomegaly with vascular congestion. Diffuse bilateral ground-glass lung opacities, some of whi ch appear nodular in the lung bases. Edema versus an atypical inflammatory process, or both. 3. Mediastinal and hilar adenopathy. POS: [facility]
[2018-09-03] MEDS ORDERED: Piperacillin/Tazobactam 3.375 GM VIAL ONE (15:54)
[2018-09-03] MEDS ORDERED: Piperacillin/Tazobactam 4.5 GM VIAL ONE (16:09)
[2018-09-03 16:38] LABS: Troponin I Less than 0.010 ng/mL (< 0.028)
--- NOTE | 2018-09-03 17:39 | HP ---
PRIMARY CARE PROVIDER: Dr. Gaurav Benítez in [place], [place]. CHIEF COMPLAINT: Shortness of breath. HISTORY OF PRESENT ILLNESS: This is a 53-year-old female, who presents to [facility] Emergency Department complaining of persistent shortness of breath, fatigue, and edema with recent admission 08/22/2018 through 08/29/2018 for acute on chronic diastolic heart failure exacerbation and new onset atrial fibrillation with variable response. The patient was extensively managed during her hospital course with overall rate improvement with medical therapy. The patient states she felt weak as if her legs were giving out when attempting to stand or walk short distances. The patient denied any unilateral symptoms, difficulty with speech, or visual disturbance. The patient does states she has difficulty with walking and has multiple falls in the past. The patient denied any loss of consciousness, documented fever, or specific change to her regimen, but does admit that she has been compliant with her medication regimen. The patient denies any new medication exposure and has finishing her prescription for prednisone in the next several days. In the emergency room, the patient underwent general evaluation with telemetry monitoring showing atrial fibrillation with rapid ventricular response. The patient was placed on Cardizem infusion with heart rates in the mid 90 range after treatment. Chest imaging was concerning for multifocal process including edema versus early infiltrates. The patient received Zosyn 4.5 g x1 dose in addition to vancomycin 1 g x1 dose. The patient continues on diltiazem infusion at 8 mg/hr. PAST MEDICAL HISTORY: 1. New-onset atrial fibrillation with rate variable, on Eliquis for anticoagulation. 2. Chronic diastolic congestive heart failure with preserved ejection fraction of 50% to 55%. 3. Morbid obesity. 4. Chronic hypoxic respiratory failure, on chronic oxygen supplementation at 3 L/min by nasal cannula continuously. 5. History of falls. 6. Hypertension. PAST SURGICAL HISTORY: 1. Status post total abdominal hysterectomy. 2. Status post gastric bypass. CURRENT MEDICATIONS: 1. Vortioxetine 10 mg p.o. daily. 2. Eliquis 5 mg p.o. b.i.d. 3. BuSpar 15 mg p.o. b.i.d. 4. Clonazepam 2 mg p.o. at bedtime. 5. Digoxin 0.25 mg p.o. daily. 6. Diltiazem CD 360 mg p.o. daily. 7. Cymbalta 30 mg p.o. daily. 8. Lasix 40 mg p.o. daily. 9. Gabapentin 300 mg p.o. t.i.d. 10. DuoNeb 3 mL nebulized q.6 hours p.r.n. 11. Prednisone 5 mg p.o. q.a.m. ALLERGIES: NO KNOWN DRUG ALLERGIES. FAMILY HISTORY: No inheritable diseases per the patient report. SOCIAL HISTORY: The patient resides in the [facility]. Former tobacco use, quitting approximately 4-5 weeks prior to this evaluation. No alcohol or illicit drug use. 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 REVIEW OF SYSTEMS: CONSTITUTIONAL: Negative for weight loss or gain, ability to conduct usual activities. SKIN: Negative for rash, itching. EYES: Negative for double vision, pain. ENT/MOUTH: Negative for nose bleeding, neck stiffness, pain, tenderness. CARDIOVASCULAR: Negative for palpitations, dyspnea on exertion, orthopnea. RESPIRATORY: Negative for shortness of breath, wheezing, cough, hemoptysis, fever or night sweats. GASTROINTESTINAL: Negative for poor appetite, abdominal pain, heartburn, nausea, vomiting, constipation, or diarrhea. GENITOURINARY: Negative for urgency, frequency, dysuria, nocturia. MUSCULOSKELETAL: Negative for pain, swelling. NEUROLOGIC/PSYCHIATRIC: Negative for anxiety, depression. ALLERGY/IMMUNOLOGIC: Negative for skin rash, bleeding tendency. Otherwise, negative except as stated per HPI. PHYSICAL EXAMINATION: VITAL SIGNS: On admission, blood pressure 135/116, pulse 112, respiratory rate 24, temperature 98.6 degrees Fahrenheit, O2 saturation 100% on face mask. GENERAL APPEARANCE: This is a 53-year-old female, alert and oriented x3, pleasant, conversant, smiling, in no acute distress. HEENT: Pupils are equal, round, reactive to light and accommodation. Extraocular muscles are intact. No scleral icterus. No conjunctival injection. Nares patent. OP is clear. Teeth in fair repair. NECK: Supple. No cervical adenopathy. No thyromegaly. No carotid bruits. No JVD appreciated. Cervical spine with full active and passive range of motion. CHEST: Bibasilar crackles and occasional expiratory wheezing. CARDIOVASCULAR: S1 and S2 with irregular rate and rhythm. No murmur noted. Heart sounds distant. ABDOMEN: Obese, soft, nontender, and nondistended. Bowel sounds are positive in all 4 quadrants. There is no hepatosplenomegaly. No abdominal bruits. No rebound or guarding appreciated. EXTREMITIES: Warm and dry with fair turgor. No pitting edema noted to the lower extremities. Pulses palpable distally at the dorsalis pedis, posterior tibial, and popliteal arteries bilaterally. Capillary refill less than 2 seconds. NEUROLOGIC: Cranial nerves 2 through 12 are grossly intact. No focal or lateralizing signs appreciated. PERTINENT LAB AND X-RAY FINDINGS: Sodium 134, potassium 4.2, chloride 101, CO2 24, BUN 8, creatinine 0.58, estimated GFR greater than 90, glucose 158, calcium 8.4, total bilirubin 1.3, AST 9, ALT 9, alkaline phosphatase 149. Troponin I negative x1. Albumin 2.8. CBC showed a white blood cell count 12.6, hemoglobin 11.5, hematocrit 36, platelet count 308 with 87% neutrophils. EKG dated 09/03/2018 by my interpretation shows atrial fibrillation with rapid ventricular response, heart rates in the low 100s. Attenuated R-waves noted in the precordial leads. Normal axis. Atrial fibrillation noted on tracing. Portable chest x-ray dated 09/03/2018 showed mild cardiomegaly with vascular prominence. Patchy atelectasis/infiltrate or edema in lung bases noted. CT angiogram of the chest dated 09/03/2018 showed no evidence for pulmonary embolus. Cardiomegaly with vascular congestion. Diffuse bilateral ground-glass lung opacities. Mediastinal hilar adenopathy noted. ASSESSMENT AND PLAN: 1. Paroxysmal atrial fibrillation with rapid ventricular response. We will continue rate control strategy with diltiazem infusion at 5 mg/hr. We will consult Cardiology Service for any further recommendations and management. Continue Eliquis 5 mg p.o. b.i.d. 2. Acute on chronic hypoxic respiratory failure, multifactorial. Continue oxygen supplementation to maintain O2 saturations greater than or equal to 90%. Bronchodilator therapy with DuoNeb q.4 hours. Continue Solu-Medrol 40 mg IV q.6 hours. 3. Bilateral pneumonia, suspected bacterial etiology. The patient will continue Levaquin 750 mg IV q.24 hours. Bronchodilator therapy as noted previously. Continue oxygen supplementation. 4. Acute on chronic diastolic congestive heart failure. Question of exacerbation. Continue Lasix 40 mg IV b.i.d. Monitor I's and O's and daily weight. 5. Prophylaxis. SCDs while in bed. PT/OT evaluation for functional assessment. CODE STATUS: Full. Surrogate medical decision maker is the patient's daughter, Paula Crane. Job ID: [id number]
[2018-09-03] MEDS ORDERED: Ondansetron ODT 4 MG TAB PO PRN (17:58)
[2018-09-03] MEDS ORDERED: hydrALAZINE 20 MG/ML VIAL SLOW IVP PRN (17:58)
[2018-09-03] MEDS ORDERED: Diltiazem 125 MG in Sodium Chloride 0.9% 100 ML IVPB SCH (17:58)
[2018-09-03] MEDS ORDERED: Guaifenesin DM 100-10/5 ML UDCUP PO PRN (17:58)
[2018-09-03] MEDS ORDERED: Ondansetron PF 4 MG/2 ML Vial IVP PRN (17:58)
[2018-09-03] MEDS ORDERED: Furosemide 40 MG/4 ML VIAL SLOW IVP SCH (18:15)
[2018-09-03] MEDS: methylPREDNISolone Sod Succ 40 MG VIAL IVP SCH ×2 (18:21→23:22)
[2018-09-03 19:22] LABS: Troponin I Less than 0.010 ng/mL (< 0.028)
[2018-09-03] MEDS: Famotidine 20 MG TAB PO SCH (20:58)
[2018-09-03] MEDS: Benzonatate 100 MG CAP PO PRN (20:58)
[2018-09-03] MEDS: Gabapentin 300 MG CAP PO SCH (20:58)
[2018-09-03] MEDS: Apixaban 5 MG TAB PO SCH (20:58)
[2018-09-03] MEDS: clonazePAM 1 MG TAB PO SCH (20:58)
[2018-09-03] MEDS ORDERED: HumaLOG 300 UNITS/3 ML VIAL SC PRN (21:27)
[2018-09-03] MEDS ORDERED: Dextrose 5% in Water 1,000 ML IV PRN (21:27)
[2018-09-03] MEDS ORDERED: Dextrose 50% Abboject 50 ML SYRINGE SLOW IVP PRN (21:27)
[2018-09-03] MEDS ORDERED: Furosemide 20 MG/2 ML VIAL SLOW IVP SCH (23:15)
[2018-09-03] MEDS ORDERED: Furosemide 40 MG/4 ML VIAL ONE (23:16)
--- NOTE | 2018-09-03 23:21 | PDOC.EVN ---
Event Note - Event Note Event Note: RN called - SOB with transient diaphoresis earlier. Will give additional 20 mg IV Lasix. Change Nebs to Q4h. Cont pulse ox. Recheck trop. and electrolytes.
[2018-09-03 23:53] LABS: Anion Gap 12 mmol/L (10-20); BUN (Urea Nitrogen) 8 mg/dL (9.8-20.1); Calc. Creatinine Clearance 205 mL/min (70-130); Carbon Dioxide 27 mmol/L (22-29); Chloride 97 mmol/L (98-107); Estimated GFR-MDRD 90; Glucose 237 mg/dL (70-105); Magnesium 1.7 mg/dL (1.6-2.6); Potassium 4.3 mmol/L (3.5-5.1); Sodium 132 mmol/L (136-145)
[2018-09-04] MEDS: HumaLOG 300 UNITS/3 ML VIAL SC PRN ×4 (02:01→22:13)
[2018-09-04] MEDS: methylPREDNISolone Sod Succ 40 MG VIAL IVP SCH ×3 (05:12→17:26)
[2018-09-04 05:49] LABS: Anion Gap 13 mmol/L (10-20); BUN (Urea Nitrogen) 9 mg/dL (9.8-20.1); Calc. Creatinine Clearance 208 mL/min (70-130); Calcium 9.1 mg/dL (7.8-10.44); Carbon Dioxide 29 mmol/L (22-29); Chloride 96 mmol/L (98-107); Digoxin 0.46 ng/mL (0.8-2.0); Estimated GFR-MDRD Greater than 90; Glucose 246 mg/dL (70-105); Magnesium 1.8 mg/dL (1.6-2.6); Potassium 4.3 mmol/L (3.5-5.1); Sodium 134 mmol/L (136-145)
[2018-09-04] MEDS ORDERED: Furosemide 40 MG/4 ML VIAL SLOW IVP SCH (06:00)
[2018-09-04 06:07] LABS: Band 9 % (5-11); Hemoglobin 11.4 g/dL (12.0-16.0); Lymphocytes 4 % (21-51); MDiff Complete? YES; Mean Corpuscular HGB CONC 32.2 g/dL (32.0-36.0); Mean Corpuscular Volume 90.1 fL (78.0-98.0); Mean Platelet Volume 8.4 fL (7.4-10.4); Monocytes 1 % (0-10); Neutrophil 86 % (42-75); Platelet Count 339 thou/uL (130-400); Platelet Morphology Comment Appears Adequate; RBC Distribution Width 13.8 % (11.5-14.5); Red Blood Cell (RBC) Count 3.94 mill/uL (4.20-5.40); White Blood Cell (WBC) Count 8.1 thou/uL (4.8-10.8)
[2018-09-04] MEDS: Apixaban 5 MG TAB PO SCH ×2 (09:39→20:39)
[2018-09-04] MEDS: Digoxin 0.25 MG TAB PO SCH (09:39)
[2018-09-04] MEDS: DULoxetine 30 MG CAP PO SCH (09:39)
[2018-09-04] MEDS: Gabapentin 300 MG CAP PO SCH ×3 (09:40→20:39)
[2018-09-04] MEDS: Famotidine 20 MG TAB PO SCH ×2 (09:40→20:39)
[2018-09-04] MEDS ORDERED: HumaLOG 300 UNITS/3 ML VIAL SC PRN (11:31)
--- NOTE | 2018-09-04 11:44 | PDOC.PN ---
- Subjective Encounter Start Date: 09/04/18 Encounter Start Time: 11:10 Subjective: f/u for A-fib RVR on Cardizem gtt with variable rate. States feeling -: better overall with current tx for PNA with Levaquin. - Objective Resuscitation Status - Order Detail: 09/03/18 16:20 Resuscitation Status Routine Resuscitation Status: FULL: Full Resuscitation MAR Reviewed: Yes Vital Signs & Weight: Vital Signs (12 hours) Temp Pulse Resp BP Pulse Ox 09/04/18 09:39 97 09/04/18 07:50 92 L 09/04/18 07:46 94 20 09/04/18 07:41 97.6 F 102 H 20 131/83 92 L 09/04/18 03:25 96.4 F L 103 H 22 H 129/95 H 92 L 09/04/18 03:08 91 L 09/04/18 03:07 96 18 91 L Weight Weight 296 lb 4.8 oz I&O: 09/03/18 09/04/18 09/05/18 06:59 06:59 06:59 Intake Total 2054 Output Total 3375 1100 Balance -1320 -1100 Result Diagrams: 09/04/18 04:40 09/04/18 04:40 Additional Labs: Accuchecks 09/04/18 09/04/18 09/04/18 10:51 05:39 01:53 POC Glucose 415 H 260 H 291 H 09/03/18 09/03/18 09/03/18 22:11 20:28 18:29 POC Glucose 252 H 256 H 150 H Laboratory Tests 08/22/18 09/03/18 09/03/18 10:33 13:03 13:03 WBC 12.6 H Hgb 11.5 L Sodium 134 L Magnesium B-Natriuretic Peptide 1011.6 H Digoxin 09/03/18 09/04/18 09/04/18 23:27 04:40 04:40 WBC Hgb Sodium 132 L Magnesium 1.8 B-Natriuretic Peptide Digoxin 0.46 L 09/04/18 04:40 WBC Hgb Sodium Magnesium B-Natriuretic Peptide 85.3 Digoxin EKG Reviewed by me: Yes (Tele - A-fib in 90 to low 100's) Phys Exam - Physical Examination Constitutional: NAD HEENT: PERRLA, sclera anicteric, oral pharynx no lesions Neck: no nodes, no JVD, supple, full ROM few scattered rhonchi, diminished in bases S1, S2 Cardiovascular: no significant murmur, no rub, irregular Gastrointestinal: soft, non-tender, no distention, positive bowel sounds Musculoskeletal: no edema, pulses present Neurological: normal sensation, moves all 4 limbs Psychiatric: A&O x 3 Skin: normal turgor, cap refill <2 seconds Deviation from normal: Saunders with clear, himanshu urine Dx/Plan (1) Atrial fibrillation with RVR Code(s): I48.91 - UNSPECIFIED ATRIAL FIBRILLATION Status: Acute Comment: Rate variable, continue Cardizem gtt, Cardiology consult pending, continue rate control strategy, Digoxin 0.25mg daily, continue Eliquis 5mg BID (2) Acute and chronic respiratory failure with hypoxia Code(s): J96.21 - ACUTE AND CHRONIC RESPIRATORY FAILURE WITH HYPOXIA Status: Acute Comment: Continue O2 supplementation, near baseline O2 requirement, continue Duonebs, wean Solumedrol in next 24h (3) Bilateral pneumonia Code(s): J18.9 - PNEUMONIA, UNSPECIFIED ORGANISM Status: Acute Comment: Suspected gm + cocci, continue Levaquin, Duonebs (4) Acute on chronic diastolic HF (heart failure) Code(s): I50.33 - ACUTE ON CHRONIC DIASTOLIC (CONGESTIVE) HEART FAILURE Status : Acute Comment: Improved, decrease Lasix 40mg IV daily - Plan continue antibiotics, PT/OT, social service agency director, respiratory therapy, out of bed/ ambulate Continue Lasix 40mg IV daily -: Change ISS to aggressive -: Continue Eliquis 5mg BID -: Wean off Diltiazem gtt in next 24h -: AM lab: BMP, Mg++ * .
--- NOTE | 2018-09-04 14:04 | CON ---
DATE OF CONSULTATION: HISTORY OF PRESENT ILLNESS: The patient is a 53-year-old woman, who presents for recurrent palpitations and dyspnea. The patient was recently hospitalized with new onset atrial fibrillation. She was initially tried on flecainide. The patient was discharged on Eliquis. The patient reports that since she was discharged, she has been dyspneic. She reports having recurrent palpitations and presented to the emergency room for further evaluation. The patient denies having any chest discomfort. PAST MEDICAL HISTORY: Her past medical history is significant for; 1. Atrial fibrillation. 2. Hypertension. 3. Anxiety disorder. 4. Depression. 5. Morbid obesity. PAST SURGICAL HISTORY: She has had hysterectomy, gastric bypass surgery. SOCIAL HISTORY: She is a former smoker. She quit four months ago. MEDICATIONS ON ADMISSION: See nursing list. FAMILY HISTORY: No strong family history of coronary artery disease. REVIEW OF SYSTEMS: Ten-point system noticeable for worsening dyspnea. PHYSICAL EXAMINATION: GENERAL: This is a morbidly obese woman, in no acute distress. VITAL SIGNS: Blood pressure 127/80. NECK: Showed no jugular venous distention. LUNGS: Lungs have crackles throughout both lung hayes. HEART: Irregular rate and rhythm. Normal S1 and S2 with no murmurs. ABDOMEN: Distended. EXTREMITIES: Showed mild edema. VASCULAR: Radial pulses 2+. LABORATORY DATA: Sodium 134, potassium 4.3, chloride 96, bicarbonate 29, BUN 9, creatinine 0.68. Troponin was less than 0.01. White blood cell count 8.1, hemoglobin 11.4, hematocrit 35.5, and her platelets were 339. DIAGNOSTIC DATA: Her EKG revealed atrial fibrillation with a rapid ventricular response. Nonspecific T-wave abnormality. Chest x-ray revealed mild cardiomegaly with pulmonary vascular congestion. IMPRESSION: 1. Atrial fibrillation. 2. Congestive heart failure. 3. Hypertension. 4. Morbid obesity. 5. Anxiety disorder. This patient presents with rapid atrial fibrillation and congestive heart failure. The patient's heart rate has been controlled with Cardizem. The patient would most likely benefit from maintaining sinus rhythm. The patient will be considered for electrical cardioversion. We will follow this patient with you through her hospitalization. Would also consider EP evaluation for possible ablation as there may not be an appropriate antiarrhythmic drug for this patient with diastolic heart failure. Job ID: [id number]
[2018-09-04] MEDS: Vortioxetine Hydrobromide [Trintellix] 10 MG PO SCH (17:24)
[2018-09-04] MEDS: ALPRAZolam 0.25 MG TAB PO PRN (17:26)
[2018-09-04] MEDS: clonazePAM 1 MG TAB PO SCH (20:39)
[2018-09-05] MEDS: methylPREDNISolone Sod Succ 40 MG VIAL IVP SCH ×2 (01:08→05:54)
[2018-09-05 05:43] LABS: Anion Gap 13 mmol/L (10-20); BUN (Urea Nitrogen) 14 mg/dL (9.8-20.1); Calc. Creatinine Clearance 211 mL/min (70-130); Calcium 9.6 mg/dL (7.8-10.44); Carbon Dioxide 30 mmol/L (22-29); Chloride 95 mmol/L (98-107); Estimated GFR-MDRD Greater than 90; Glucose 260 mg/dL (70-105); Magnesium 1.8 mg/dL (1.6-2.6); Potassium 4.1 mmol/L (3.5-5.1); Sodium 134 mmol/L (136-145)
[2018-09-05] MEDS ORDERED: Communication Order-Pharmacy FS SCH (08:45)
[2018-09-05] MEDS ORDERED: Sodium Chloride 0.9% 1,000 ML IV SCH (08:45)
[2018-09-05] MEDS: Digoxin 0.25 MG TAB PO SCH (09:41)
[2018-09-05] MEDS: Furosemide 40 MG/4 ML VIAL SLOW IVP SCH (09:41)
[2018-09-05] MEDS: DULoxetine 30 MG CAP PO SCH (09:41)
[2018-09-05] MEDS: Famotidine 20 MG TAB PO SCH ×2 (09:41→22:04)
[2018-09-05] MEDS: Gabapentin 300 MG CAP PO SCH ×3 (09:42→22:04)
[2018-09-05] MEDS: Vortioxetine Hydrobromide [Trintellix] 10 MG PO SCH (09:42)
--- NOTE | 2018-09-05 09:53 | PDOC.PN ---
- Subjective Encounter Start Date: 09/05/18 Encounter Start Time: 10:20 Subjective: Patient with SOB improved. No chest pain. Awaiting cardioversion. - Objective Resuscitation Status - Order Detail: 09/03/18 16:20 Resuscitation Status Routine Resuscitation Status: FULL: Full Resuscitation MAR Reviewed: Yes Vital Signs & Weight: Vital Signs (12 hours) Temp Pulse Resp BP Pulse Ox 09/05/18 09:41 96 09/05/18 07:49 94 L 09/05/18 07:48 92 20 94 L 09/05/18 07:11 97.4 F L 88 19 143/89 H 96 09/05/18 04:00 97.5 F L 85 20 120/77 90 L 09/05/18 02:15 78 16 93 L 09/05/18 00:00 97.4 F L 93 20 119/81 90 L 09/04/18 22:15 86 16 95 Weight Weight 296 lb I&O: 09/04/18 09/05/18 09/06/18 06:59 06:59 06:59 Intake Total 5 2345 Output Total 3375 3750 Balance -1320 -1405 Result Diagrams: 09/04/18 04:40 09/05/18 04:22 Additional Labs: Accuchecks 09/05/18 09/05/18 09/04/18 05:51 03:37 20:27 POC Glucose 268 H 266 H 369 H 09/04/18 09/04/18 16:46 10:51 POC Glucose 296 H 415 H Phys Exam - Physical Examination Constitutional: NAD HEENT: moist MMs Respiratory: no wheezing, no rales, no rhonchi Cardiovascular: no significant murmur, irregular Gastrointestinal: soft, non-tender, positive bowel sounds Neurological: non-focal Psychiatric: normal affect, A&O x 3 Dx/Plan (1) Atrial fibrillation with RVR Code(s): I48.91 - UNSPECIFIED ATRIAL FIBRILLATION Status: Acute Comment: Rate variable, continue Cardizem gtt, continue rate control strategy, Digoxin 0.25mg daily, continue Eliquis 5mg BID, Cardiology consulted, plan for cardioversion and possibly ablation (2) Acute and chronic respiratory failure with hypoxia Code(s): J96.21 - ACUTE AND CHRONIC RESPIRATORY FAILURE WITH HYPOXIA Status: Acute Comment: Continue O2 supplementation, near baseline O2 requirement, continue Duonebs, wean changing to oral prednisone (3) Acute on chronic diastolic HF (heart failure) Code(s): I50.33 - ACUTE ON CHRONIC DIASTOLIC (CONGESTIVE) HEART FAILURE Status : Acute Comment: Improved, decreased Lasix 40mg IV daily (4) COPD with exacerbation Code(s): J44.1 - CHRONIC OBSTRUCTIVE PULMONARY DISEASE W (ACUTE) EXACERBATION Status: Acute Comment: steroids, nebs, abx (5) Bilateral pneumonia Code(s): J18.9 - PNEUMONIA, UNSPECIFIED ORGANISM Status: Acute Comment: bilateral infiltrates possibly infection on top of CHF, continue Levaquin, Duonebs, WBC normalized (6) Anxiety disorder Code(s): F41.9 - ANXIETY DISORDER, UNSPECIFIED Status: Chronic Qualifiers: Anxiety disorder type: unspecified anxiety disorder Qualified Code(s): F41.9 - Anxiety disorder, unspecified (7) HTN (hypertension) Code(s): I10 - ESSENTIAL (PRIMARY) HYPERTENSION Status: Chronic Qualifiers: Hypertension type: essential hypertension Qualified Code(s): I10 - Essential (primary) hypertension (8) Obesity Code(s): E66.9 - OBESITY, UNSPECIFIED Status: Chronic Qualifiers: Obesity type: with alveolar hypoventilation Body mass index: BMI 45.0-49.9 - Plan cont current plan of care, continue antibiotics, PT/OT, respiratory therapy, DVT proph w/SCDs cardioversion and possible ablation today * . - Discharge Day Encounter end time: 10:30
[2018-09-05 10:21] LABS: Hemoglobin A1c 6.3 % (4.0-6.0)
[2018-09-05 11:17] VITALS: BMI 46.3
--- NOTE | 2018-09-05 16:47 | CON ---
DATE OF CONSULTATION: SUBJECTIVE: Ms. Crane is doing well. She continues to be short of breath, although states she is feeling better today. She is much more awake than I saw her on her previous hospitalization. She was recently diagnosed with pneumonia and placed on IV antibiotics. She is back in sinus rhythm. She continues to be on Eliquis. OBJECTIVE: VITAL SIGNS: Blood pressure 102/61, pulse 85, temperature 97.4. LUNGS: Clear to auscultation. HEART: Regular rate and rhythm. ABDOMEN: Soft, nontender, nondistended. EXTREMITIES: No edema. IMPRESSION: 1. Atrial fibrillation. 2. Pneumonia. RECOMMENDATIONS: Ms. Crane appears to be in sinus rhythm. Continue current medical therapy as prescribed. May consider Multaq to keep her normal rhythm. We will stop IV Cardizem and continue p.o. Cardizem for now. If she continues to have episodes, may consider Multaq, but we will need to change Levaquin given the interaction. Job ID: [id number]
[2018-09-05] MEDS: HumaLOG 300 UNITS/3 ML VIAL SC PRN ×2 (17:06→22:05)
[2018-09-05] MEDS ORDERED: Cyclobenzaprine 10 MG TAB PO SCH (21:15)
[2018-09-05] MEDS: clonazePAM 1 MG TAB PO SCH (22:04)
[2018-09-05] MEDS: Apixaban 5 MG TAB PO SCH (22:04)
[2018-09-06] MEDS: Benzonatate 100 MG CAP PO PRN (01:47)
--- NOTE | 2018-09-06 05:45 | PDOC.CTH ---
Cardiology Progress Note - Subjective Feels washed out. No specific complaints - Objective Vital Signs Temp Pulse Resp BP Pulse Ox 09/06/18 04:00 97.6 F 78 16 113/71 97 09/06/18 01:58 70 18 97 09/05/18 21:32 77 16 96 09/05/18 18:00 92 16 97 Admit Weight 296 lb 4.8 oz Weight 292 lb 3.2 oz 09/04/18 09/05/18 09/06/18 06:59 06:59 06:59 Intake Total 2055 2345 4360 Output Total 3375 3750 3450 Balance -1320 -1405 910 - Physical Examination General/Neuro: alert & oriented x3, NAD Neck: carotid US brisk, no JVD present Lungs: CTA, unlabored respirations Heart: PMI normal, other: (IRR) Abdomen: NT/ND, soft Extremities: + femoral B - Labs Result Diagrams: 09/04/18 04:40 09/06/18 05:41 Troponin/CKMB Troponin I Less than 0.010 ng/mL (< 0.028) 09/03/18 23:27 - Assessment/Plan Afib Pneumonia Continute Abx On CCB Consider multaq, flecainide Prefer flecainide and will discuss with primary team on changing antibiotics
[2018-09-06 06:43] LABS: Anion Gap 14 mmol/L (10-20); BUN (Urea Nitrogen) 18 mg/dL (9.8-20.1); Calc. Creatinine Clearance 191 mL/min (70-130); Calcium 9.5 mg/dL (7.8-10.44); Carbon Dioxide 32 mmol/L (22-29); Chloride 95 mmol/L (98-107); Estimated GFR-MDRD 84; Glucose 200 mg/dL (70-105); Magnesium 1.9 mg/dL (1.6-2.6); Potassium 4.1 mmol/L (3.5-5.1); Sodium 137 mmol/L (136-145)
[2018-09-06] MEDS: Gabapentin 300 MG CAP PO SCH ×3 (10:24→20:22)
[2018-09-06] MEDS: Cyclobenzaprine 10 MG TAB PO SCH ×3 (10:25→20:22)
[2018-09-06] MEDS: predniSONE 20 MG TAB PO SCH (10:25)
[2018-09-06] MEDS: Famotidine 20 MG TAB PO SCH ×2 (10:26→20:21)
[2018-09-06] MEDS: Digoxin 0.25 MG TAB PO SCH (10:26)
[2018-09-06] MEDS: DULoxetine 30 MG CAP PO SCH (10:26)
[2018-09-06] MEDS: Apixaban 5 MG TAB PO SCH ×2 (10:26→20:21)
[2018-09-06] MEDS: Vortioxetine Hydrobromide [Trintellix] 10 MG PO SCH (10:27)
[2018-09-06] MEDS: Furosemide 40 MG/4 ML VIAL SLOW IVP SCH (10:29)
--- NOTE | 2018-09-06 10:49 | PDOC.PN ---
- Subjective Encounter Start Date: 09/06/18 Encounter Start Time: 10:48 Ms. Crane was seen today in follow-up of Pneumonia and Atrial fibrillation. She says she feels only a little better today than yesterday. she is still complaining of some cough, and the feeling like something is stuck in her chest. She is still a bit short of breath. - Objective Resuscitation Status - Order Detail: 09/03/18 16:20 Resuscitation Status Routine Resuscitation Status: FULL: Full Resuscitation MAR Reviewed: Yes Vital Signs & Weight: Vital Signs (12 hours) Temp Pulse Resp BP BP Pulse Ox 09/06/18 10:26 74 09/06/18 10:10 74 16 96 09/06/18 07:35 97.6 F 86 20 102/71 93 L 09/06/18 06:40 80 16 96 09/06/18 04:00 97.6 F 78 16 113/71 97 09/06/18 01:58 70 18 97 Weight Admit Weight 296 lb 4.8 oz Weight 292 lb 3.2 oz I&O: 09/05/18 09/06/18 09/07/18 06:59 06:59 06:59 Intake Total 2345 4360 Output Total 3750 3450 Balance -1405 910 Result Diagrams: 09/04/18 04:40 09/06/18 05:41 Additional Labs: Accuchecks 09/06/18 09/05/18 09/05/18 05:44 19:55 16:36 POC Glucose 210 H 381 H 299 H 09/05/18 10:35 POC Glucose 299 H Phys Exam - Physical Examination HEENT: PERRLA + rales at the bases Cardiovascular: no significant murmur, no rub, irregular Gastrointestinal: soft, non-tender, no distention, positive bowel sounds Musculoskeletal: no edema, pulses present Dx/Plan (1) Bilateral pneumonia Code(s): J18.9 - PNEUMONIA, UNSPECIFIED ORGANISM Status: Acute Comment: bilateral infiltrates possibly infection on top of CHF, continue Levaquin, Duonebs, WBC normalized (2) Acute and chronic respiratory failure with hypoxia Code(s): J96.21 - ACUTE AND CHRONIC RESPIRATORY FAILURE WITH HYPOXIA Status: Acute Comment: Continue O2 supplementation, near baseline O2 requirement, continue Duonebs, wean changing to oral prednisone (3) Acute on chronic diastolic HF (heart failure) Code(s): I50.33 - ACUTE ON CHRONIC DIASTOLIC (CONGESTIVE) HEART FAILURE Status : Acute Comment: Improved, decreased Lasix 40mg IV daily (4) Atrial fibrillation with RVR Code(s): I48.91 - UNSPECIFIED ATRIAL FIBRILLATION Status: Acute Comment: Rate variable, continue Cardizem gtt, continue rate control strategy, Digoxin 0.25mg daily, continue Eliquis 5mg BID, Cardiology consulted, plan for cardioversion and possibly ablation (5) HTN (hypertension) Code(s): I10 - ESSENTIAL (PRIMARY) HYPERTENSION Status: Chronic Qualifiers: Hypertension type: essential hypertension Qualified Code(s): I10 - Essential (primary) hypertension - Plan * Pneumonia- will continue Levaquin for now * AFIB with RVR- she is now in Atrial flutter- would change her antibiotic, but she is only a little better now, and Levaquin give the best overall coverage. Will continue for another day or two, and then re-assess- hopefully at that time we can place her on Omnicef alone * HTN- blood pressure is stable * Pulmonary Embolus- recent- continue Eliquis
[2018-09-06] MEDS: clonazePAM 1 MG TAB PO SCH (20:22)
[2018-09-06] MEDS: HumaLOG 300 UNITS/3 ML VIAL SC PRN (20:51)
[2018-09-07] MEDS: predniSONE 20 MG TAB PO SCH (08:47)
[2018-09-07] MEDS: Digoxin 0.25 MG TAB PO SCH (08:47)
[2018-09-07] MEDS: Apixaban 5 MG TAB PO SCH ×2 (08:47→21:26)
[2018-09-07] MEDS: Cyclobenzaprine 10 MG TAB PO SCH ×3 (08:47→21:27)
[2018-09-07] MEDS: DULoxetine 30 MG CAP PO SCH (08:48)
[2018-09-07] MEDS: Furosemide 40 MG/4 ML VIAL SLOW IVP SCH (08:49)
[2018-09-07] MEDS: Famotidine 20 MG TAB PO SCH ×2 (08:49→21:27)
[2018-09-07] MEDS: Gabapentin 300 MG CAP PO SCH ×3 (08:49→21:27)
[2018-09-07] MEDS: Vortioxetine Hydrobromide [Trintellix] 10 MG PO SCH (08:53)
[2018-09-07] MEDS: ALPRAZolam 0.25 MG TAB PO PRN ×2 (11:23→23:03)
[2018-09-07] MEDS: HumaLOG 300 UNITS/3 ML VIAL SC PRN ×3 (11:35→21:35)
--- NOTE | 2018-09-07 16:18 | PDOC.PN ---
- Subjective Encounter Start Date: 09/07/18 Encounter Start Time: 11:45 Ms. Crane was seen today in follow-up of Pneumonia and AFIB. She says she feels a little better today. She has ambulated some and sat in a chair. - Objective Resuscitation Status - Order Detail: 09/03/18 16:20 Resuscitation Status Routine Resuscitation Status: FULL: Full Resuscitation MAR Reviewed: Yes Vital Signs & Weight: Vital Signs (12 hours) Temp Pulse Resp BP Pulse Ox 09/07/18 14:49 78 16 92 L 09/07/18 11:25 97.9 F 81 18 118/83 94 L 09/07/18 10:22 84 16 94 L 09/07/18 08:47 91 09/07/18 08:41 98.0 F 91 18 119/76 96 09/07/18 06:48 93 L 09/07/18 06:46 80 16 93 L Weight Admit Weight 296 lb 4.8 oz Weight 291 lb 3.2 oz I&O: 09/06/18 09/07/18 09/08/18 06:59 06:59 06:59 Intake Total 4360 3030 Output Total 3450 6725 Balance 910 -7870 Result Diagrams: 09/04/18 04:40 09/06/18 05:41 Additional Labs: Accuchecks 09/07/18 09/07/18 09/07/18 10:58 05:31 00:13 POC Glucose 160 H 159 H 132 H 09/06/18 09/06/18 20:09 17:01 POC Glucose 353 H 266 H Phys Exam - Physical Examination HEENT: PERRLA Respiratory: wheezing present + rales at both bases Cardiovascular: RRR, no significant murmur, no rub Gastrointestinal: soft, non-tender, no distention, positive bowel sounds Musculoskeletal: no edema, pulses present Dx/Plan (1) Bilateral pneumonia Code(s): J18.9 - PNEUMONIA, UNSPECIFIED ORGANISM Status: Acute Comment: bilateral infiltrates possibly infection on top of CHF, continue Levaquin, Duonebs, WBC normalized (2) Acute and chronic respiratory failure with hypoxia Code(s): J96.21 - ACUTE AND CHRONIC RESPIRATORY FAILURE WITH HYPOXIA Status: Acute Comment: Continue O2 supplementation, near baseline O2 requirement, continue Duonebs, wean changing to oral prednisone (3) Acute on chronic diastolic HF (heart failure) Code(s): I50.33 - ACUTE ON CHRONIC DIASTOLIC (CONGESTIVE) HEART FAILURE Status : Acute Comment: Improved, decreased Lasix 40mg IV daily (4) Atrial fibrillation with RVR Code(s): I48.91 - UNSPECIFIED ATRIAL FIBRILLATION Status: Acute Comment: Rate variable, continue Cardizem gtt, continue rate control strategy, Digoxin 0.25mg daily, continue Eliquis 5mg BID, Cardiology consulted, plan for cardioversion and possibly ablation (5) HTN (hypertension) Code(s): I10 - ESSENTIAL (PRIMARY) HYPERTENSION Status: Chronic Qualifiers: Hypertension type: essential hypertension Qualified Code(s): I10 - Essential (primary) hypertension - Plan * Pneumonia- she is slowly improving on Levaquin. Will re-assess tomorrow, anticipate that after her dose of Levaquin tomorrow can switch to omnicef, which should not interact with the anti-arrhythmic * AFIB- her heart rate is controlled- will continue Diltiazem and Digoxin * Continue ELiquis for CVA prevention * HTN- blood pressure is stable * Acute on chronic diastolic heart failure- improved.
[2018-09-07] MEDS: clonazePAM 1 MG TAB PO SCH (21:27)
[2018-09-07] MEDS: Acetaminophen 500 MG TAB PO PRN (23:03)
--- NOTE | 2018-09-08 06:55 | PRG ---
DATE OF SERVICE: 09/07/2018 TIME: 1600 hours. SUBJECTIVE: Ms. Crane is resting comfortably in bed. She told she is feeling much better and has no complaints. She denies any chest pain, shortness of breath, or palpitations. OBJECTIVE: NEUROLOGIC: She is alert, awake, and oriented x3. VITAL SIGNS: Stable. CHEST: Clear to auscultation bilaterally. CARDIOVASCULAR: Irregularly irregular rhythm. ABDOMEN: Soft and nontender to palpation and nondistended. EXTREMITIES: No clubbing, cyanosis, or edema. LABORATORY DATA: Telemetry shows the patient to be in AFib. IMPRESSION: 1. Persistent atrial fibrillation with intermittent rapid ventricular response. 2. Pneumonia. 3. Acute on chronic diastolic congestive heart failure. At this time, the patient is stable. She is on Eliquis for anticoagulation and rate controlled for the most part. Plan is to cardiovert her in the near future. At this time, we will continue her on high-dose Levaquin for her pneumonia according to her primary care service and this medication can be removed or adjusted as not to cause [id number] interactions with Multaq or possibly flecainide. We will initiate antiarrhythmics and plan for cardioversion. Job ID: [id number]
--- NOTE | 2018-09-08 07:12 | PDOC.CTH ---
Cardiology Progress Note - Subjective doing well. No complaints - Objective Vital Signs Temp Pulse Resp BP Pulse Ox 09/08/18 06:46 93 L 09/08/18 06:44 73 16 93 L 09/08/18 04:00 97.6 F 90 18 113/75 96 09/08/18 02:31 85 16 95 09/07/18 23:27 86 16 97 09/07/18 19:55 95 09/07/18 19:45 97.5 F L 115 H 16 116/75 95 Admit Weight 296 lb 4.8 oz Weight 190 lb 3.2 oz 09/07/18 09/08/18 09/09/18 06:59 06:59 06:59 Intake Total 3030 2960 Output Total 6725 6400 Balance -2828 -4890 - Physical Examination General/Neuro: NAD Neck: carotid US brisk, no JVD present Lungs: CTA, unlabored respirations Heart: other: (irr) Abdomen: no HSM, NT/ND, soft Extremities: + femoral B - Labs Result Diagrams: 09/04/18 04:40 09/06/18 05:41 Troponin/CKMB Troponin I Less than 0.010 ng/mL (< 0.028) 09/03/18 23:27 - Assessment/Plan Afib Pneumonia Continue current treatment last dose of levaquin today Add flecainide; check EKG Continue ACT Option of CV as outpt vs KOTA/CV as inpatinet discussed. She much prefers proceeding with IP KOTA/CV after discussing R/B of proceudre. Anticipate KOTA/CV on wednesday R/B of KOTA discussed with pt.
[2018-09-08] MEDS: Vortioxetine Hydrobromide [Trintellix] 10 MG PO SCH (09:02)
[2018-09-08] MEDS: predniSONE 20 MG TAB PO SCH (09:02)
[2018-09-08] MEDS: Gabapentin 300 MG CAP PO SCH ×3 (09:03→20:26)
[2018-09-08] MEDS: Digoxin 0.25 MG TAB PO SCH (09:03)
[2018-09-08] MEDS: Famotidine 20 MG TAB PO SCH ×2 (09:04→20:27)
[2018-09-08] MEDS: DULoxetine 30 MG CAP PO SCH (09:04)
[2018-09-08] MEDS: Cyclobenzaprine 10 MG TAB PO SCH ×3 (09:04→20:27)
[2018-09-08] MEDS: Apixaban 5 MG TAB PO SCH ×2 (09:09→20:26)
[2018-09-08] MEDS: Furosemide 40 MG/4 ML VIAL SLOW IVP SCH (09:09)
--- NOTE | 2018-09-08 10:03 | PDOC.PN ---
- Subjective Encounter Start Date: 09/08/18 Encounter Start Time: 09:56 Ms. Crane was seen in follow-up of pneumonia and Atrial fibrillation. She says she is feeling better. She is less short of breath. - Objective Resuscitation Status - Order Detail: 09/03/18 16:20 Resuscitation Status Routine Resuscitation Status: FULL: Full Resuscitation MAR Reviewed: Yes Vital Signs & Weight: Vital Signs (12 hours) Temp Pulse Resp BP Pulse Ox 09/08/18 09:03 82 09/08/18 06:46 93 L 09/08/18 06:44 73 16 93 L 09/08/18 04:00 97.6 F 90 18 113/75 96 09/08/18 02:31 85 16 95 09/07/18 23:27 86 16 97 Weight Admit Weight 296 lb 4.8 oz Weight 190 lb 3.2 oz I&O: 09/07/18 09/08/18 09/09/18 06:59 06:59 06:59 Intake Total 3030 2960 Output Total 6725 6400 Balance -9765 -5235 Result Diagrams: 09/04/18 04:40 09/06/18 05:41 Additional Labs: Accuchecks 09/08/18 09/08/18 09/07/18 05:31 00:17 20:08 POC Glucose 126 H 68 L 401 H 09/07/18 09/07/18 16:53 10:58 POC Glucose 262 H 160 H Phys Exam - Physical Examination Respiratory: no wheezing, no rhonchi + rales at the bases Cardiovascular: no significant murmur, no rub, irregular Gastrointestinal: soft, non-tender, positive bowel sounds Musculoskeletal: no edema, pulses present non-pitting edema Dx/Plan (1) Bilateral pneumonia Code(s): J18.9 - PNEUMONIA, UNSPECIFIED ORGANISM Status: Acute Comment: bilateral infiltrates possibly infection on top of CHF, continue Levaquin, Duonebs, WBC normalized (2) Acute and chronic respiratory failure with hypoxia Code(s): J96.21 - ACUTE AND CHRONIC RESPIRATORY FAILURE WITH HYPOXIA Status: Acute Comment: Continue O2 supplementation, near baseline O2 requirement, continue Duonebs, wean changing to oral prednisone (3) Acute on chronic diastolic HF (heart failure) Code(s): I50.33 - ACUTE ON CHRONIC DIASTOLIC (CONGESTIVE) HEART FAILURE Status : Acute Comment: Improved, decreased Lasix 40mg IV daily (4) Atrial fibrillation with RVR Code(s): I48.91 - UNSPECIFIED ATRIAL FIBRILLATION Status: Acute Comment: Rate variable, continue Cardizem gtt, continue rate control strategy, Digoxin 0.25mg daily, continue Eliquis 5mg BID, Cardiology consulted, plan for cardioversion and possibly ablation (5) HTN (hypertension) Code(s): I10 - ESSENTIAL (PRIMARY) HYPERTENSION Status: Chronic Qualifiers: Hypertension type: essential hypertension Qualified Code(s): I10 - Essential (primary) hypertension - Plan * Pneumonia- improved- she got her last dose of Levaquin this morning, and will continue with Omnicef tomorrow * AFIB plan is for Cardioversion tomorrow, and Fleccanide * HTN- blood pressure is stable * Acute on chronic diastolic heart failure * Steroid induced hyperglycemia- will decrease the steroid dose, she had an episode of hypoglycemia- so will decreased the SSI to moderate.
[2018-09-08] MEDS ORDERED: HumaLOG 300 UNITS/3 ML VIAL SC PRN (10:04)
[2018-09-08] MEDS ORDERED: Dextrose 50% Abboject 50 ML SYRINGE SLOW IVP PRN (10:04)
[2018-09-08] MEDS ORDERED: Dextrose 5% in Water 1,000 ML IV PRN (10:04)
[2018-09-08] MEDS: Benzonatate 100 MG CAP PO PRN (14:01)
[2018-09-08] MEDS: Acetaminophen 500 MG TAB PO PRN (14:01)
[2018-09-08] MEDS: ALPRAZolam 0.25 MG TAB PO PRN ×2 (14:04→23:44)
[2018-09-08] MEDS: HumaLOG 300 UNITS/3 ML VIAL SC PRN (17:59)
[2018-09-08] MEDS ORDERED: Flecainide 50 MG TAB PO SCH (19:00)
[2018-09-08] MEDS: clonazePAM 1 MG TAB PO SCH (20:26)
[2018-09-08] MEDS ORDERED: Bisacodyl 5 MG TAB PO SCH (21:15)
[2018-09-09] MEDS: Cefdinir 300 MG CAP PO SCH (05:52)
[2018-09-09] MEDS ORDERED: PROPOFOL 20 ML ONE (07:49)
[2018-09-09] MEDS ORDERED: Cefdinir 300 MG CAP PO SCH (09:00)
[2018-09-09] MEDS: Bisacodyl 5 MG TAB PO SCH (09:52)
[2018-09-09] MEDS: Flecainide 50 MG TAB PO SCH ×2 (09:52→20:27)
[2018-09-09] MEDS: predniSONE 20 MG TAB PO SCH (09:53)
[2018-09-09] MEDS: Digoxin 0.25 MG TAB PO SCH (09:53)
[2018-09-09] MEDS: Apixaban 5 MG TAB PO SCH ×2 (09:53→20:28)
[2018-09-09] MEDS: Famotidine 20 MG TAB PO SCH ×2 (09:53→20:27)
[2018-09-09] MEDS: DULoxetine 30 MG CAP PO SCH (09:53)
[2018-09-09] MEDS: Cyclobenzaprine 10 MG TAB PO SCH ×3 (09:53→20:27)
[2018-09-09] MEDS: Gabapentin 300 MG CAP PO SCH ×3 (09:53→20:27)
[2018-09-09] MEDS: Vortioxetine Hydrobromide [Trintellix] 10 MG PO SCH (09:56)
[2018-09-09] MEDS: Furosemide 40 MG/4 ML VIAL SLOW IVP SCH (09:56)
[2018-09-09] MEDS ORDERED: PROPOFOL 200 MG/20 ML VIAL ONE (13:13)
[2018-09-09] MEDS: ALPRAZolam 0.25 MG TAB PO PRN (13:38)
[2018-09-09] MEDS: HumaLOG 300 UNITS/3 ML VIAL SC PRN ×2 (14:02→17:58)
--- NOTE | 2018-09-09 16:45 | EKG ---
Test Reason : Blood Pressure : / mmHG Vent. Rate : 078 BPM Atrial Rate : 394 BPM P-R Int : 000 ms QRS Dur : 084 ms QT Int : 368 ms P-R-T Axes : 000 045 065 degrees QTc Int : 419 ms Atrial fibrillation Low voltage QRS Abnormal ECG When compared with ECG of 03-SEP-2018 22:25, Nonspecific T wave abnormality no longer evident in Anterior leads Confirmed by DR. Jose LAWSON ([id number]) on 09/09/2018 4:45:27 PM Referred By: LILI Confirmed By:DR. Jose LAWSON
--- NOTE | 2018-09-09 16:49 | EKG ---
Test Reason : POST CARDIOVERSION Blood Pressure : / mmHG Vent. Rate : 083 BPM Atrial Rate : 083 BPM P-R Int : 186 ms QRS Dur : 076 ms QT Int : 362 ms P-R-T Axes : 077 049 063 degrees QTc Int : 425 ms Normal sinus rhythm Low voltage QRS Borderline ECG When compared with ECG of 08-SEP-2018 14:36, (Unconfirmed) Sinus rhythm has replaced Atrial fibrillation Confirmed by DR. Jose LAWSON ([id number]) on 09/09/2018 4:48:50 PM Referred By: LILI Confirmed By:DR. Jose LAWSON
--- NOTE | 2018-09-09 17:14 | PDOC.PN ---
- Subjective Encounter Start Date: 09/09/18 Encounter Start Time: 17:11 Ms. Crane was seen today in follow-up of pneumonia and Atrial Fibrillation. She says she feels much better today. She has been for her cardioversion and is now in sinus rhythm. - Objective Resuscitation Status - Order Detail: 09/03/18 16:20 Resuscitation Status Routine Resuscitation Status: FULL: Full Resuscitation MAR Reviewed: Yes Vital Signs & Weight: Vital Signs (12 hours) Temp Pulse Resp BP BP Pulse Ox 09/09/18 16:21 97.9 F 82 20 118/69 93 L 09/09/18 15:47 88 16 09/09/18 11:54 91 18 131/76 92 L 09/09/18 11:18 86 16 09/09/18 09:53 96 09/09/18 09:48 97.9 F 89 18 152/83 H 96 09/09/18 06:39 97 09/09/18 06:38 76 16 Weight Admit Weight 296 lb 4.8 oz Weight 290 lb 8 oz I&O: 09/08/18 09/09/18 09/10/18 06:59 06:59 06:59 Intake Total 2960 2030 340 Output Total 6400 3350 0 Balance -3440 -1320 340 Result Diagrams: 09/04/18 04:40 09/06/18 05:41 Additional Labs: Accuchecks 09/09/18 09/09/18 09/09/18 13:44 11:24 05:44 POC Glucose 253 H 265 H 142 H 09/08/18 09/08/18 20:35 16:53 POC Glucose 216 H 273 H Phys Exam - Physical Examination HEENT: PERRLA Respiratory: no wheezing, no rales, no rhonchi, clear to auscultation bilateral Cardiovascular: RRR, no significant murmur, no rub Gastrointestinal: soft, non-tender, no distention, positive bowel sounds Musculoskeletal: no edema Dx/Plan (1) Atrial fibrillation with RVR Code(s): I48.91 - UNSPECIFIED ATRIAL FIBRILLATION Status: Acute Comment: Rate variable, continue Cardizem gtt, continue rate control strategy, Digoxin 0.25mg daily, continue Eliquis 5mg BID, Cardiology consulted, plan for cardioversion and possibly ablation (2) Bilateral pneumonia Code(s): J18.9 - PNEUMONIA, UNSPECIFIED ORGANISM Status: Acute Comment: bilateral infiltrates possibly infection on top of CHF, continue Levaquin, Duonebs, WBC normalized (3) Acute and chronic respiratory failure with hypoxia Code(s): J96.21 - ACUTE AND CHRONIC RESPIRATORY FAILURE WITH HYPOXIA Status: Acute Comment: Continue O2 supplementation, near baseline O2 requirement, continue Duonebs, wean changing to oral prednisone (4) Acute on chronic diastolic HF (heart failure) Code(s): I50.33 - ACUTE ON CHRONIC DIASTOLIC (CONGESTIVE) HEART FAILURE Status : Acute Comment: Improved, decreased Lasix 40mg IV daily (5) HTN (hypertension) Code(s): I10 - ESSENTIAL (PRIMARY) HYPERTENSION Status: Chronic Qualifiers: Hypertension type: essential hypertension Qualified Code(s): I10 - Essential (primary) hypertension - Plan * AFIB with RVR- she is post cardioversion and now in sinus. * Continue Flecainide * Pneumonia- she has been changed to Omnicef * Hopefully home in the AM.
[2018-09-09] MEDS: clonazePAM 1 MG TAB PO SCH (20:27)
[2018-09-10] MEDS: ALPRAZolam 0.25 MG TAB PO PRN (02:00)
[2018-09-10] MEDS: Cefdinir 300 MG CAP PO SCH (05:59)
[2018-09-10] MEDS: Apixaban 5 MG TAB PO SCH (08:04)
[2018-09-10] MEDS: DULoxetine 30 MG CAP PO SCH (08:04)
[2018-09-10] MEDS: Famotidine 20 MG TAB PO SCH (08:04)
[2018-09-10] MEDS: Bisacodyl 5 MG TAB PO SCH (08:04)
[2018-09-10] MEDS: Gabapentin 300 MG CAP PO SCH ×2 (08:04→13:57)
[2018-09-10] MEDS: Cyclobenzaprine 10 MG TAB PO SCH ×2 (08:04→13:57)
[2018-09-10] MEDS: predniSONE 20 MG TAB PO SCH (08:04)
[2018-09-10] MEDS: Furosemide 40 MG/4 ML VIAL SLOW IVP SCH (08:05)
[2018-09-10] MEDS: Digoxin 0.25 MG TAB PO SCH (08:05)
[2018-09-10] MEDS: Flecainide 50 MG TAB PO SCH (08:05)
[2018-09-10] MEDS: Vortioxetine Hydrobromide [Trintellix] 10 MG PO SCH (08:06)
--- NOTE | 2018-09-10 10:19 | PDOC.PN ---
- Subjective Encounter Start Date: 09/10/18 Encounter Start Time: 10:16 Ms. Crane was seen for follow-up of pneumonia and atrial fibrillation. she is breathing better. She has her oxygen off. She says she is nervous about going home, because she is afraid to spend the night in her home alone. - Objective Resuscitation Status - Order Detail: 09/03/18 16:20 Resuscitation Status Routine Resuscitation Status: FULL: Full Resuscitation MAR Reviewed: Yes Vital Signs & Weight: Vital Signs (12 hours) Temp Pulse Resp BP Pulse Ox 09/10/18 08:04 95 09/10/18 07:23 97.3 F L 78 20 114/64 95 09/10/18 06:34 99 09/10/18 06:29 86 16 09/10/18 04:00 97.8 F 77 20 132/82 96 09/10/18 00:00 92 L 09/09/18 22:34 94 L Weight Admit Weight 296 lb 4.8 oz Weight 289 lb I&O: 09/09/18 09/10/18 09/11/18 06:59 06:59 06:59 Intake Total 2030 2500 Output Total 3350 2700 Balance -1320 -200 Result Diagrams: 09/04/18 04:40 09/06/18 05:41 Additional Labs: Accuchecks 09/10/18 09/10/18 09/09/18 06:00 02:07 20:35 POC Glucose 124 H 136 H 143 H 09/09/18 09/09/18 09/09/18 16:57 13:44 11:24 POC Glucose 344 H 253 H 265 H Phys Exam - Physical Examination HEENT: PERRLA Respiratory: wheezing present Rales at the bases Cardiovascular: RRR, no significant murmur, no rub Gastrointestinal: soft, non-tender, no distention, positive bowel sounds Musculoskeletal: pulses present Dx/Plan (1) Atrial fibrillation with RVR Code(s): I48.91 - UNSPECIFIED ATRIAL FIBRILLATION Status: Acute Comment: Rate variable, continue Cardizem gtt, continue rate control strategy, Digoxin 0.25mg daily, continue Eliquis 5mg BID, Cardiology consulted, plan for cardioversion and possibly ablation (2) Bilateral pneumonia Code(s): J18.9 - PNEUMONIA, UNSPECIFIED ORGANISM Status: Acute Comment: bilateral infiltrates possibly infection on top of CHF, continue Levaquin, Duonebs, WBC normalized (3) Acute and chronic respiratory failure with hypoxia Code(s): J96.21 - ACUTE AND CHRONIC RESPIRATORY FAILURE WITH HYPOXIA Status: Acute Comment: Continue O2 supplementation, near baseline O2 requirement, continue Duonebs, wean changing to oral prednisone (4) Acute on chronic diastolic HF (heart failure) Code(s): I50.33 - ACUTE ON CHRONIC DIASTOLIC (CONGESTIVE) HEART FAILURE Status : Acute Comment: Improved, decreased Lasix 40mg IV daily (5) HTN (hypertension) Code(s): I10 - ESSENTIAL (PRIMARY) HYPERTENSION Status: Chronic Qualifiers: Hypertension type: essential hypertension Qualified Code(s): I10 - Essential (primary) hypertension - Plan * Atrial fibrillation- now in sinus, will continue Flecanide * Pneumonia- will send her home on a few more days of Omnicef * HTN- blood pressure is stable.
[2018-09-10 11:51] VITALS: BP 119/62; TEMP 97.7
--- NOTE | 2018-09-10 22:21 | DIS ---
DATE OF ADMISSION: 09/03/2018 DATE OF DISCHARGE: 09/10/2018 PRIMARY CARE PHYSICIAN: Dr. Gaurav Benítez. DISCHARGE DISPOSITION: Home. PRIMARY DISCHARGE DIAGNOSES: 1. Community acquired pneumonia. 2. Acute on chronic respiratory failure with hypoxemia. 3. Chronic respiratory failure with hypoxemia due to chronic obstructive pulmonary disease. 4. Atrial fibrillation. 5. Morbid obesity. 6. Chronic diastolic heart failure. DISCHARGE MEDICATIONS: The patient was discharged on: 1. Flecainide 50 mg twice a day. 2. Lasix 40 mg daily. 3. Gabapentin 300 mg t.i.d. 4. Albuterol and Atrovent nebs q.6 as needed. 5. Prednisone 5 mg daily. 6. Cymbalta 30 mg daily. 7. Cardizem CD 360 mg daily. 8. Digoxin 0.25 mg daily. 9. Klonopin 2 mg at bedtime as needed. 10. Omnicef 600 mg daily for 3 more days. 11. BuSpar 15 mg twice daily. 12. Tessalon Perles 100 mg q.6 hours as needed. 13. Eliquis 5 mg twice daily. 14. Vortioxetine 10 mg daily. CODE STATUS: Full code. ALLERGIES: NO KNOWN DRUG ALLERGIES. HOSPITAL COURSE: Ms. Crane is a very pleasant 53-year-old female, who presented to the emergency room with complaints of shortness of breath. She was evaluated and found to have bilateral interstitial infiltrates and was diagnosed with pneumonia. She was started on Levaquin IV. She also recently was diagnosed with atrial fibrillation and the plan was for her to have a cardioversion electively in the outpatient setting. She remained in atrial fibrillation during the hospital stay and she inquired about having the cardioversion done during this admission. Cardiology was consulted and after her pneumonia improved significantly, her antibiotics were changed from Levaquin to Omnicef to facilitate placing her on an antiarrhythmic. She underwent successful cardioversion and continued on flecainide. At the time of discharge, she was in sinus rhythm. Her respiratory status had improved back to her baseline and she was able to be discharged home in good condition to follow up with her primary care physician in 1 to 2 weeks. Job ID: [id number]
== END 2018-09-10 14:07 | disposition home or self-care (01) | DRG 193 ==
LOC: ERS 12:40 → 2NO 15:35
PROVIDERS: ADMIT Family Medicine; ATTEND Family Medicine
PROC: 5A2204Z Restoration of Cardiac Rhythm, Single (ICD-10-PCS; principal; 2018-09-03)
PROC: B24BZZ4 Ultrasonography of Heart with Aorta, Transesophageal (ICD-10-PCS; 2018-09-03)
DX: J18.9 Pneumonia, unspecified organism (principal); J96.21 Acute and chronic respiratory failure with hypoxia; I50.33 Acute on chronic diastolic (congestive) heart failure; J44.0 Chronic obstructive pulmonary disease with (acute) lower respiratory infection; J44.1 Chronic obstructive pulmonary disease with (acute) exacerbation; Z68.42 Body mass index [BMI] 45.0-49.9, adult; E66.2 Morbid (severe) obesity with alveolar hypoventilation; I48.1 Persistent atrial fibrillation; K21.9 Gastro-esophageal reflux disease without esophagitis; F41.9 Anxiety disorder, unspecified; F32.9 Major depressive disorder, single episode, unspecified; I48.0 Paroxysmal atrial fibrillation; I11.0 Hypertensive heart disease with heart failure; T38.0X5A Adverse effect of glucocorticoids and synthetic analogues, initial encounter; E11.65 Type 2 diabetes mellitus with hyperglycemia; E11.649 Type 2 diabetes mellitus with hypoglycemia without coma; Z91.81 History of falling; Z87.891 Personal history of nicotine dependence; Z99.81 Dependence on supplemental oxygen; Z79.52 Long term (current) use of systemic steroids; Z79.01 Long term (current) use of anticoagulants; Z79.899 Other long term (current) drug therapy; Z86.711 Personal history of pulmonary embolism; Z79.84 Long term (current) use of oral hypoglycemic drugs; Z90.710 Acquired absence of both cervix and uterus; Z98.84 Bariatric surgery status
CPT/HCPCS: 36415; 36416; 71045; 71275; 80048; 80053; 80162; 82550; 83036; 83735; 83880; 84484; 85007; 85025; 85027; 92960; 93005; 93010; 93312; 93798; 94640; 94760; 96365; 96366; 96368; J1940; J1956; J2543; J2704; J2920; J3370; J7050; J7620; Q0162; Q9966

== ENCOUNTER 2018-09-25 16:18 | Inpatient (IN) | payer MEDICARE ==
[2018-09-25 17:04] LABS: #Eosinphils 0.1 thou/uL (0.0-0.7); #Lymphocytes 1.8 thou/uL (1.20-3.40); #Monocytes 0.4 thou/uL (0.11-0.59); #Neutrophils 4.4 thou/uL (1.40-6.50); %Basophils 0.3 % (0.0-1.0); %Eosinophils 1.1 % (0.0-10.0); %Lymphocytes 27.3 % (21.0-51.0); %Monocytes 5.7 % (0.0-10.0); %Neutrophils 65.6 % (42.0-75.0); Hemoglobin 13.3 g/dL (12.0-16.0); Mean Corpuscular HGB CONC 33.1 g/dL (32.0-36.0); Mean Corpuscular Hemoglobin 29.7 pg (27.0-31.0); Mean Corpuscular Volume 89.6 fL (78.0-98.0); Mean Platelet Volume 7.7 fL (7.4-10.4); Platelet Count 233 thou/uL (130-400); RBC Distribution Width 16.9 % (11.5-14.5); Red Blood Cell (RBC) Count 4.48 mill/uL (4.20-5.40); White Blood Cell (WBC) Count 6.7 thou/uL (4.8-10.8)
--- NOTE | 2018-09-25 17:13 | RAD ---
FExam: Chest one view HISTORY:Short of breath Comparison: None FINDINGS: Lungs: No masses or consolidation. Cardiac silhouette:Accentuated by technique Pulmonary vessels: Normal Pleural Spaces: Clear Pneumothorax: None Osseous abnormalities: None of acuity. IMPRESSION: No focal consolidation.
[2018-09-25 17:18] LABS: ALT (SGPT) 10 U/L (8-55); AST (SGOT) 10 U/L (5-34); Albumin 3.8 g/dL (3.5-5.0); Alkaline Phosphatase 137 U/L (40-150); Anion Gap 13 mmol/L (10-20); BUN (Urea Nitrogen) 7 mg/dL (9.8-20.1); Bilirubin, Total 1.3 mg/dL (0.2-1.2); Calc. Creatinine Clearance 0 mL/min (70-130); Calcium 9.3 mg/dL (7.8-10.44); Carbon Dioxide 27 mmol/L (22-29); Chloride 103 mmol/L (98-107); Estimated GFR-MDRD 79; Globulin 2.6 g/dL (2.4-3.5); Glucose 113 mg/dL (70-105); Potassium 3.9 mmol/L (3.5-5.1); Protein, Total 6.4 g/dL (6.0-8.3); Sodium 139 mmol/L (136-145)
[2018-09-25] MEDS ORDERED: Diltiazem HCl 125 MG, Admixture Fee 1 EACH in Sodium Chloride 0.9% 100 ML IVPB SCH (18:00)
[2018-09-25 18:04] LABS: INR-International Normal Ratio 1.2; PTT 34.7 SEC (22.9-36.1); Prothrombin Time 15.7 SEC (12.0-14.7)
[2018-09-25 18:15] LABS: Digoxin Less than 0.15 ng/mL (0.8-2.0)
[2018-09-25] MEDS ORDERED: Furosemide 40 MG/4 ML VIAL ONE (18:50)
[2018-09-25 20:51] LABS: Troponin I Less than 0.010 ng/mL (< 0.028)
[2018-09-25 21:32] VITALS: BMI 45.0
[2018-09-25] MEDS ORDERED: Senokot S 8.6-50 MG TAB PO PRN (21:50)
[2018-09-25] MEDS ORDERED: Calcium Carbonate 500 MG ChewTAB PO PRN (21:50)
[2018-09-25] MEDS ORDERED: Acetaminophen 325 MG TAB PO PRN (21:50)
[2018-09-25] MEDS ORDERED: HYDROcodone/Acetaminophen 5/325 mg Tablet PO PRN (21:50)
[2018-09-25] MEDS ORDERED: Bisacodyl 10 MG SUPP PR PRN (21:50)
[2018-09-25] MEDS ORDERED: Loperamide HCl 2 MG CAP PO PRN (21:50)
[2018-09-25] MEDS ORDERED: Diltiazem 125 MG in Sodium Chloride 0.9% 100 ML IVPB SCH (22:00)
[2018-09-25] MEDS ORDERED: clonazePAM 1 MG TAB PO SCH (22:30)
[2018-09-25] MEDS ORDERED: clonazePAM 0.5 MG TAB PO SCH (22:30)
[2018-09-26 01:11] LABS: Troponin I 0.014 ng/mL (< 0.028)
[2018-09-26] MEDS ORDERED: Benzonatate 100 MG CAP PO PRN (01:15)
[2018-09-26] MEDS ORDERED: Cyclobenzaprine 10 MG TAB PO PRN (01:15)
--- NOTE | 2018-09-26 01:53 | HP ---
PRIMARY CARE PHYSICIAN: Dr. Gaurav Benítez in [place]. DATE OF SERVICE: 09/25/2018 REASON FOR ADMISSION: Atrial fibrillation with rapid ventricular response. HISTORY OF PRESENT ILLNESS: A 53-year-old female who was recently admitted in our hospital on September 03, 2018. At that time, the patient was treated for pneumonia and during that admission, the patient also had an atrial fibrillation with RVR. During that admission, the patient underwent cardioversion and subsequently the patient was discharged home on September 10, 2018. One week later, the patient saw primary gate manager. The patient's flecainide was discontinued. The patient was again in atrial fibrillation at home. She was feeling dizzy, short of breath for last 4 days. She was feeling her heart rate was racing. She was also having weight gain, increased lower extremity edema, and shortness of breath. As the patient was not feeling good, that is why she decided to come to emergency room for evaluation and she was found with atrial fibrillation with RVR. She was started on Cardizem drip and subsequently her rate was under control. When I saw this patient in [facility], at that time, the patient was comfortable, her rate was under control, and she was getting Cardizem at 5 mg/hour. ALLERGIES: NO KNOWN DRUG ALLERGIES. CURRENT HOME MEDICATION: 1. Duloxetine 30 mg daily. 2. Protonix 20 mg daily. 3. Losartan with hydrochlorothiazide 50/12.5 mg daily. 4. Estradiol 1 mg daily. 5. Klonopin 2 mg at bedtime. 6. Brintellix 10 mg daily. 7. Buspirone 15 mg twice daily. 8. Digoxin 250 mcg daily. 9. Cardizem XR 180 mg daily. 10. Gabapentin 300 mg 3 times daily. 11. Eliquis 5 mg twice daily. 12. Flexeril 10 mg 3 times daily p.r.n. 13. Lasix 40 mg twice daily. REVIEW OF SYSTEMS: CONSTITUTIONAL: Negative for weight loss or gain, ability to conduct usual activities. SKIN: Negative for rash, itching. EYES: Negative for double vision, pain. ENT/MOUTH: Negative for nose bleeding, neck stiffness, pain, tenderness. CARDIOVASCULAR: Negative for palpitations, dyspnea on exertion, orthopnea. RESPIRATORY: Negative for shortness of breath, wheezing, cough, hemoptysis, fever or night sweats. GASTROINTESTINAL: Negative for poor appetite, abdominal pain, heartburn, nausea , vomiting, constipation, or diarrhea. GENITOURINARY: Negative for urgency, frequency, dysuria, nocturia. MUSCULOSKELETAL: Negative for pain, swelling. NEUROLOGIC/PSYCHIATRIC: Negative for anxiety, depression. ALLERGY/IMMUNOLOGIC: Negative for skin rash, bleeding tendency. Please see my HPI for pertinent positive and negative. All other review of systems reviewed and negative except as mentioned in the HPI. PAST MEDICAL HISTORY: Paroxysmal atrial fibrillation with variable rate; chronic diastolic heart failure, stage C, chronic anticoagulation with Eliquis; morbid obesity; chronic respiratory failure, on home oxygen; hypertension. PAST PSYCHIATRIC HISTORY: Anxiety and depression. PAST SURGICAL HISTORY: Abdominal hysterectomy, gastric bypass, cardioversion, transesophageal echocardiography. ALLERGIES: NO KNOWN DRUG ALLERGIES. FAMILY HISTORY: No strong family history of premature coronary artery disease, stroke, or cancer. SOCIAL HISTORY: The patient lives in [place], [place]. She is former smoker. She quit smoking a few months ago. No history of alcohol or other illicit drug abuse. She is on disability. Formally, she was nurse in [employer]. EMERGENCY ROOM COURSE: The patient was given Lasix 40 mg IV and Cardizem 5 mg. PHYSICAL EXAMINATION: VITAL SIGNS: On arrival, blood pressure 122/88, pulse 91, respiratory rate 18, temperature 97.6, saturation 97% on room air, weight 131.6 kg. GENERAL: The patient is currently alert, awake, in no obvious acute distress. HEENT: Head; normocephalic, atraumatic. Eyes; pupils round, reactive to light. Extraocular muscle intact. ENT; oropharynx within normal limits. Moist mucous membranes. No oral lesion. No pharyngeal erythema. No exudate. NECK: Supple. No JVD. No thyromegaly. No carotid bruit. No jugular venous distention. LUNGS: Clear to auscultation without any rhonchi or rales. CARDIAC: S1 and S2 irregular. No murmur, no gallop, no rub. ABDOMEN: Morbid obesity limiting examination. No peritoneal sign. No guarding. No rigidity. No organomegaly. No mass. BACK: Unremarkable. No CVA tenderness. EXTREMITIES: Upper extremity; passive movement of all joints are normal. Lower extremity; bilateral lower extremity pitting edema noted. Good distal pulsation. SKIN: No skin rash. HEMATOLOGICAL SYSTEM: No lymphadenopathy. PSYCHIATRIC: Normal affect. SIGNIFICANT LABORATORY DATA: EKG showing atrial fibrillation with RVR. Chest x -ray showing no focal consolidation. CBC; WBC of 6.7, hemoglobin 13.3, platelets 233. Digoxin level less than 0.15. BMP; sodium 139, potassium 3.9, chloride 103, carbon dioxide 27, BUN 7, creatinine 0.77, glucose 113, calcium 9.3. LFT; AST 10, ALT 10, alkaline phosphatase 137, albumin 3.8. Cardiac enzyme negative x2. BNP 68.4. INR 1.2. ASSESSMENT AND PLAN: IMPRESSION: 1. Atrial fibrillation with rapid ventricular response. The patient has chronic paroxysmal atrial fibrillation with variable rate. As per the patient, recently , her flecainide was discontinued. Currently, rate is under control with the Cardizem drip. We will continue chronic anticoagulation with Eliquis 5 mg b.i.d. and digoxin 0.125 mg p.o. daily. We will also restart her home Cardizem CD 360 mg p.o. daily and then wean off Cardizem drip. We will also resume monitoring on telemetry floor and consult Cardiology for their opinion. 2. Anxiety and depression. We will continue Trintellix 10 mg daily, clonazepam 2 mg p.o. at bedtime, and buspirone 10 mg p.o. b.i.d. 3. Morbid obesity with body mass index of 45. Dietary education given. Weight loss education given. 4. Chronic diastolic heart failure. We will continue Lasix 20 mg p.o. daily along with rate control, which is the underlying etiology for diastolic heart failure. 5. Chronic low back pain. Continue gabapentin 300 mg p.o. t.i.d. 6. Chronic respiratory failure, on home oxygen therapy. Continue oxygen as a maintenance dose. 7. Deep venous thrombosis prophylaxis. The patient is already on Eliquis therapy. 8. Gastrointestinal prophylaxis. Pepcid 20 mg p.o. b.i.d. CODE STATUS: The patient is full code. DISPOSITION PLAN: Based on clinical course and Cardiology recommendation. Plan of care discussed with the patient in detail. Job ID: [id number] MTDD
[2018-09-26 05:03] LABS: #Eosinphils 0.1 thou/uL (0.0-0.7); #Lymphocytes 1.8 thou/uL (1.20-3.40); #Monocytes 0.4 thou/uL (0.11-0.59); #Neutrophils 3.8 thou/uL (1.40-6.50); %Basophils 0.3 % (0.0-1.0); %Eosinophils 1.2 % (0.0-10.0); %Lymphocytes 29.6 % (21.0-51.0); %Monocytes 5.9 % (0.0-10.0); %Neutrophils 63.1 % (42.0-75.0); Hemoglobin 12.3 g/dL (12.0-16.0); Mean Corpuscular Hemoglobin 29.4 pg (27.0-31.0); Mean Corpuscular Volume 89.2 fL (78.0-98.0); Mean Platelet Volume 8.2 fL (7.4-10.4); Platelet Count 213 thou/uL (130-400); RBC Distribution Width 16.7 % (11.5-14.5); Red Blood Cell (RBC) Count 4.18 mill/uL (4.20-5.40); White Blood Cell (WBC) Count 6.1 thou/uL (4.8-10.8)
[2018-09-26 05:16] LABS: Anion Gap 12 mmol/L (10-20); BUN (Urea Nitrogen) 7 mg/dL (9.8-20.1); Calc. Creatinine Clearance 196 mL/min (70-130); Calcium 8.9 mg/dL (7.8-10.44); Carbon Dioxide 27 mmol/L (22-29); Chloride 103 mmol/L (98-107); Estimated GFR-MDRD 88; Glucose 158 mg/dL (70-105); Potassium 3.1 mmol/L (3.5-5.1); Sodium 139 mmol/L (136-145)
[2018-09-26] MEDS ORDERED: Non-Formulary Item 1 EACH (Vortioxetine Hydrobromide [Trintellix] 10 MG) PO SCH (09:00)
--- NOTE | 2018-09-26 09:42 | CON ---
DATE OF CONSULTATION: SUBJECTIVE: Tay Crane is a 53-year-old morbidly obese female, from [place], [place], comes to the hospital with shortness of breath and chest pain. A local vehicle damage appraiser, Dr. Jim, told every time she had some chest pain to come to the hospital. She is having atrial fibrillation. She has smoked a pack a day for most of her life. Previous history of bronchitis, but no pneumonia or asthma. She says she has a nebulizer machine, which she uses 3 times a day, quit smoking about 3-4 months ago. She has severe limitation to activity because of bad knees. In fact, she is disabled from that. Denies any coughing or wheezing. PAST MEDICAL HISTORY: Congestive heart failure, atrial fibrillation, diabetes, arthritis, reflux, hypertension, and COPD. PAST SURGICAL HISTORY: Gastric bypass and hysterectomy. SOCIAL HISTORY: Alcohol, none. Tobacco, quit smoking. REVIEW OF SYSTEMS: Otherwise unremarkable. MEDICATIONS: From home includes nebulizer several times a day. Cymbalta 30 mg a day. Tambocor 50 a day. Gabapentin 300 three times a day, Lasix 40 a day, Protonix 20, Flexeril 10, BuSpar 10. Digoxin 0.5. Eliquis 5 twice a day, Cardizem CD 360 nebulizer, Klonopin 2 mg a day. Since admission, she is started on a Cardizem drip. ALLERGIES: NONE. SOCIAL HISTORY: She is disabled. REVIEW OF SYSTEMS: 10 point negative. PHYSICAL EXAMINATION: VITAL SIGNS: Saturations 98% room air, respiratory rate 18, temperature 97, blood pressure 130/103. CHEST: Decreased breath sounds. No wheezing. CARDIAC: Normal S1, S2. No gallops. ABDOMEN: Soft, no mass. DIAGNOSTIC STUDIES: Chest x-ray shows no acute infiltrates. LABORATORY DATA: Lab shows unremarkable CBC and lytes. IMPRESSION: Atrial fibrillation, morbid obesity, congestive heart failure, chronic obstructive pulmonary disease, severe deconditioning, and severe arthritis. PLAN: Pulmonary fair, she wants to be back on neb treatments, which she is already on an as needed basis. Pulmonary follow on in MICU. She saw Dr. Higginbotham during the last admission. We will notify him of the admission. Consultation note, 70 minutes, 50% direct patient care. Job ID: [id number]
[2018-09-26] MEDS: DULoxetine 30 MG CAP PO SCH (09:45)
[2018-09-26] MEDS: Digoxin 0.25 MG TAB PO SCH (09:45)
[2018-09-26] MEDS: Gabapentin 300 MG CAP PO SCH ×3 (09:48→20:47)
[2018-09-26] MEDS: Apixaban 5 MG TAB PO SCH ×2 (09:48→20:47)
[2018-09-26] MEDS: Famotidine 20 MG TAB PO SCH ×2 (09:48→20:47)
[2018-09-26] MEDS: busPIRone HCl 10 MG TAB PO SCH ×2 (09:48→20:47)
[2018-09-26] MEDS: Furosemide 40 MG TAB PO SCH (09:49)
[2018-09-26] MEDS: Estradiol 1 MG TAB PO SCH (09:49)
[2018-09-26] MEDS: ALPRAZolam 0.25 MG TAB PO PRN (11:39)
[2018-09-26 12:16] LABS: Bilirubin Negative (Negative); Blood, Urine Negative (Negative); Clarity CLEAR (Clear); Glucose, Urine (Dipstick) Negative (Negative); Leukocyte Trace (Negative); Nitrite Negative (Negative); Protein, Urine (Dipstick) Negative (Neg-Trace)
[2018-09-26 12:18] LABS: Bacteria/HPF None Seen HPF (None Seen); Hyaline Casts/LPF 0-3 HYALINE CAST LPF (0-3 Hyaline); RBC/HPF 0-3 HPF (0-3); Squamous Epithelial None Seen HPF (0-3); WBC/HPF 0-3 HPF (0-3)
[2018-09-26 12:21] LABS: Specific Gravity, Urine 1.002 (1.002-1.036)
[2018-09-26] MEDS: clonazePAM 0.5 MG TAB PO SCH (20:47)
[2018-09-26] MEDS: Nystatin Powder 15 GM BOT TOP SCH (20:51)
[2018-09-26] MEDS ORDERED: clonazePAM 1 MG TAB PO SCH (21:00)
--- NOTE | 2018-09-26 21:46 | PDOC.PN ---
- Subjective Encounter Start Date: 09/26/18 Encounter Start Time: 11:45 Patient seen and examined for Afib with RVR. On Cardizem drip. No new complaints. No overnight events - Objective Resuscitation Status - Order Detail: 09/25/18 21:50 Resuscitation Status Routine Resuscitation Status: FULL: Full Resuscitation MAR Reviewed: Yes Vital Signs & Weight: Vital Signs (12 hours) Temp Pulse Resp BP Pulse Ox 09/26/18 19:30 97.1 F L 09/26/18 15:00 97.4 F L 09/26/18 11:25 89 13 132/90 09/26/18 10:30 97.6 F 09/26/18 09:55 105 H 18 134/97 H 97 Weight Weight 287 lb 8 oz Most Recent Monitor Data Heart Rate from ECG 85 NIBP 126/74 NIBP BP-Mean 91 Respiration from ECG 21 SpO2 95 I&O: 09/25/18 09/26/18 09/27/18 06:59 06:59 06:59 Intake Total 325 Output Total 650 2200 Balance -325 -2200 Result Diagrams: 09/27/18 05:40 09/27/18 05:40 EKG Reviewed by me: Yes (Tele Afib) Phys Exam - Physical Examination Constitutional: NAD HEENT: PERRLA Neck: no JVD Respiratory: no wheezing, no rales, no rhonchi Cardiovascular: no rub, irregular no heaves/pulsations Gastrointestinal: soft, non-tender, positive bowel sounds Musculoskeletal: no edema, edema present Neurological: non-focal, normal sensation, moves all 4 limbs Psychiatric: normal affect, A&O x 3 Dx/Plan - Plan 1. Afib with RVR - on Cardizem drip 2. Chronic Anticoag with Eliquis 3. Morbid obesity BMI 45 4. Chronic resp failure on home O2 5. Anxiety 6. Depression - mild - stable 7. Chronic Diastolic HF - Stage C 8. HTN PLAN: Cont Cardizem drip On Eliquis Cont PO Cardizem/Lasix Cont other meds as below AM labs Review of Systems - Review of Systems Cardiovascular: negative: chest pain, palpitations, orthopnea, paroxysmal nocturnal dyspnea, edema, light headedness, other Gastrointestinal: negative: Nausea, Vomiting, Abdominal Pain, Diarrhea, Constipation, Melena, Hematochezia, Other - Medications/Allergies Allergies/Adverse Reactions: Allergies Allergy/AdvReac Type Severity Reaction Status Date / Time No Known Allergies Allergy Verified 09/03/18 18:04 Medications: Current Medications Acetaminophen (Tylenol) 650 mg PO Q4H PRN PRN Reason: Headache/Fever/Mild Pain (1-3) Hydrocodone Bitart/Acetaminophen ([place] 5/325) 1 tab PO Q4H PRN PRN Reason: Moderate Pain (4-6) Albuterol/Ipratropium (Duoneb) 3 ml NEB Q6H PRN PRN Reason: SOB &/or Wheezing Alprazolam (Xanax) 0.25 mg PO BIDPRN PRN PRN Reason: Anxiety Last Admin: 09/26/18 11:39 Dose: 0.25 mg Apixaban (Eliquis) 5 mg PO BID [facility] Last Admin: 09/26/18 20:47 Dose: 5 mg Benzonatate (Tessalon) 100 mg PO Q6H PRN PRN Reason: Cough Bisacodyl (Dulcolax) 10 mg MA DAILYPRN PRN PRN Reason: Constipation Buspirone HCl (Buspar) 10 mg PO BID [facility] Last Admin: 09/26/18 20:47 Dose: 10 mg Calcium Carbonate (Tums) 1,000 mg PO Q4H PRN PRN Reason: Heartburn or Indigestion Clonazepam (Klonopin) 2 mg PO HS [facility] Last Admin: 09/26/18 20:47 Dose: 2 mg Cyclobenzaprine HCl (Flexeril) 10 mg PO TIDPRN PRN PRN Reason: Muscle Spasm Digoxin (Lanoxin) 0.25 mg PO DAILY [facility] Last Admin: 09/26/18 09:45 Dose: 0.25 mg Diltiazem HCl (Cardizem Cd) 360 mg PO DAILY [facility] Last Admin: 09/26/18 09:48 Dose: 360 mg Duloxetine HCl (Cymbalta) 30 mg PO DAILY [facility] Last Admin: 09/26/18 09:45 Dose: 30 mg Estradiol (Estrace) 1 mg PO DAILY [facility] Last Admin: 09/26/18 09:49 Dose: 1 mg Famotidine (Pepcid) 20 mg PO BID [facility] Last Admin: 09/26/18 20:47 Dose: 20 mg Furosemide (Lasix) 40 mg PO DAILY-[facility] Last Admin: 09/26/18 09:49 Dose: 40 mg Gabapentin (Neurontin) 300 mg PO TID [facility] Last Admin: 09/26/18 20:47 Dose: 300 mg Diltiazem HCl 125 mg/ Sodium (Chloride) 125 mls @ 5 mls/hr IVPB INF [facility]; Protocol Last Admin: 09/26/18 16:06 Dose: 125 mls Loperamide HCl (Imodium) 2 mg PO PRN PRN PRN Reason: Diarrhea/Loose Stools Non-Formulary Medication (Vortioxetine Hydrobromide [Trintellix]) 10 mg PO DAILY [facility] Nystatin (Mycostatin Powder) 0 gm TOP BID [facility] Last Admin: 09/26/18 20:51 Dose: 1 applic Senna/Docusate Sodium (Senokot S) 2 tab PO BIDPRN PRN PRN Reason: Constipation
[2018-09-27 06:02] LABS: #Eosinphils 0.1 thou/uL (0.0-0.7); #Lymphocytes 1.9 thou/uL (1.20-3.40); #Monocytes 0.4 thou/uL (0.11-0.59); #Neutrophils 4.3 thou/uL (1.40-6.50); %Basophils 0.6 % (0.0-1.0); %Eosinophils 1.9 % (0.0-10.0); %Lymphocytes 28.4 % (21.0-51.0); %Monocytes 6.2 % (0.0-10.0); %Neutrophils 62.9 % (42.0-75.0); Hemoglobin 12.4 g/dL (12.0-16.0); Mean Corpuscular HGB CONC 32.9 g/dL (32.0-36.0); Mean Corpuscular Hemoglobin 29.6 pg (27.0-31.0); Mean Corpuscular Volume 89.8 fL (78.0-98.0); Platelet Count 212 thou/uL (130-400); RBC Distribution Width 16.7 % (11.5-14.5); Red Blood Cell (RBC) Count 4.18 mill/uL (4.20-5.40); White Blood Cell (WBC) Count 6.8 thou/uL (4.8-10.8)
[2018-09-27 06:13] LABS: ALT (SGPT) Less than 7 U/L (8-55); AST (SGOT) 8 U/L (5-34); Albumin 3.4 g/dL (3.5-5.0); Alkaline Phosphatase 126 U/L (40-150); Anion Gap 13 mmol/L (10-20); BUN (Urea Nitrogen) 7 mg/dL (9.8-20.1); Bilirubin, Total 0.9 mg/dL (0.2-1.2); Calc. Creatinine Clearance 188 mL/min (70-130); Calcium 8.8 mg/dL (7.8-10.44); Carbon Dioxide 26 mmol/L (22-29); Chloride 102 mmol/L (98-107); Estimated GFR-MDRD 84; Globulin 2.7 g/dL (2.4-3.5); Glucose 152 mg/dL (70-105); Magnesium 1.8 mg/dL (1.6-2.6); Potassium 3.6 mmol/L (3.5-5.1); Protein, Total 6.1 g/dL (6.0-8.3); Sodium 137 mmol/L (136-145)
--- NOTE | 2018-09-27 07:23 | CON ---
DATE OF CONSULTATION: 09/26/2018 REASON FOR CONSULTATION: Recurrent atrial fibrillation. HISTORY OF PRESENT ILLNESS: Ms. Crane is a 53-year-old woman, seen and evaluated in the past. She underwent successful cardioversion, was placed on flecainide. She then had recurrent atrial fibrillation after going home. Unfortunately, Ms. Crane because of transportation issues could not make it back to [facility] for medical therapy. She then proceeded to the emergency room for further treatment. She was found to be fluid overloaded. She states she has been compliant with salt and fluids. PAST MEDICAL HISTORY: Hypertension, COPD, obesity, total abdominal hysterectomy, and gastric bypass surgery. SOCIAL HISTORY: No current tobacco or alcohol use. She recently stopped all tobacco products. No alcohol use. ALLERGIES: NONE. REVIEW OF SYSTEMS: 10-point review of systems is reviewed as above, otherwise negative. HOME MEDICATIONS: Include; 1. Klonopin. 2. DuoNeb. 3. Cardizem. 4. Tessalon Perles. 5. Eliquis. 6. Lanoxin. 7. Buspirone. 8. Flexeril. 9. Protonix. 10. Lasix. 11. Tambocor. 12. Cymbalta. 13. Estradiol. PHYSICAL EXAMINATION: VITAL SIGNS: Blood pressure 134/90, pulse 80, and respirations 20. GENERAL: Patient is a pleasant lady who is in no acute distress. The patient appears their stated age HEENT: Sclerae without icterus. Mouth has moist mucous membranes with normal pallor. NECK: No JVD. Carotid upstroke brisk. No bruits bilaterally. LUNGS: Clear to auscultation with unlabored respirations. BACK: No scoliosis or kyphosis. CARDIAC: Irregularly irregular with normal S1 and S2. No S3 or S4 noted. No significant rubs, murmurs, thrills, or gallops noted throughout the precordium. PMI is not displaced. There is no parasternal heave. ABDOMEN: Soft, nontender, nondistended. No peritoneal signs present. No hepatosplenomegaly. No abnormal striae. EXTREMITIES: 2+ femoral and 2+ dorsalis pedis pulses. No cyanosis, clubbing, or edema. SKIN: No gross abnormalities. PERTINENT LABORATORY DATA: Hemoglobin 12.4 and hematocrit 37.5. Creatinine 0.73. IMPRESSION: Recurrent atrial fibrillation. RECOMMENDATIONS: Ms. Crane has failed class Ic agents. Options include increasing flecainide to 100 mg p.o. b.i.d. Could also discuss use of amiodarone, which has a much longer half-life. She is also 53 years of age and felt to be relatively young for long-term amiodarone treatment. We therefore recommend EP consultation for further recommendations. She may be a candidate for ablation. Job ID: [id number]
[2018-09-27] MEDS: Apixaban 5 MG TAB PO SCH ×2 (09:43→20:13)
[2018-09-27] MEDS: busPIRone HCl 10 MG TAB PO SCH ×2 (09:43→20:13)
[2018-09-27] MEDS: Digoxin 0.25 MG TAB PO SCH (09:43)
[2018-09-27] MEDS: Estradiol 1 MG TAB PO SCH (09:43)
[2018-09-27] MEDS: Gabapentin 300 MG CAP PO SCH ×3 (09:43→20:12)
[2018-09-27] MEDS: Famotidine 20 MG TAB PO SCH ×2 (09:43→20:12)
[2018-09-27] MEDS: Furosemide 40 MG TAB PO SCH (09:43)
[2018-09-27] MEDS: DULoxetine 30 MG CAP PO SCH (09:43)
[2018-09-27] MEDS: Nystatin Powder 15 GM BOT TOP SCH ×2 (09:46→20:13)
[2018-09-27] MEDS: ALPRAZolam 0.25 MG TAB PO PRN (10:12)
--- NOTE | 2018-09-27 16:31 | PRG ---
DATE OF SERVICE: 09/27/2018 SUBJECTIVE: Ms. Crane did well overnight. She says she has not smoked since she has been home. OBJECTIVE: VITAL SIGNS: She is afebrile. Heart rate is 91, respiratory rate is in the teens, blood pressure this morning is 121/98. LUNGS: Clear. She said she could tell that she was having rapid atrial fibrillation. She is tentatively scheduled for ablation on . IMPRESSION: Rapid atrial fibrillation leading to dyspnea and subjective palpitations, clinically improved. She is rate controlled now. She has been abstinent from tobacco and her COPD appears to be stable. We will follow with the other physicians. Job ID: [id number]
--- NOTE | 2018-09-27 17:14 | CON ---
DATE OF CONSULTATION: 09/27/2018 REASON FOR CONSULTATION: Atrial fibrillation. HISTORY OF PRESENT ILLNESS: Ms. Crane is a 53-year-old woman, who was fairly recently diagnosed with atrial fibrillation earlier this year. She has been managed by Dr. Jim. She underwent successful KOTA-guided cardioversion and was then placed on flecainide. She did not tolerate this medication well and needed to stop therapy. She had early recurrence of atrial fibrillation within 3 days after her cardioversion. She presented to [facility] with shortness of breath and was found to be in fluid overload. She does endorse that she is faithfully taking her Eliquis without any interrupted doses and is tolerating this well without any bleeding issues. REVIEW OF SYSTEMS: Currently negative for heart racing, palpitations, chest pain, pressure, syncope, near syncope, stroke, or stroke-like symptoms. Denies any nausea, vomiting, diarrhea, blood in her stool, or blood in her urine. Positive for lower extremity edema. PAST MEDICAL AND SURGICAL HISTORY: Hypertension, COPD, obesity, total abdominal hysterectomy, gastric bypass surgery, type 2 diabetes, anxiety, and depression. SOCIAL HISTORY: Negative for tobacco or alcohol use. Quit tobacco products 3 months ago. ALLERGIES: NONE. HOME MEDICATIONS: Include: 1. Klonopin 2 mg p.o. at bedtime. 2. DuoNeb q.6 hours as needed. 3. Diltiazem HCL 360 mg daily. 4. Trintellix 10 mg daily. 5. Tessalon Perles q.6 hours p.r.n. 6. Eliquis 5 mg p.o. b.i.d. 7. Digoxin 250 mcg daily. 8. Buspirone 10 mg b.i.d. 9. Flexeril 10 mg p.o. t.i.d. p.r.n. 10. Protonix 20 mg daily as needed. 11. Furosemide 40 mg p.o. daily. 12. Gabapentin 300 mg p.o. t.i.d. 13. Duloxetine 30 mg daily. 14. Estradiol 1 mg daily. FAMILY HISTORY: Denies any sudden cardiac or early-onset coronary artery disease. SOCIAL HISTORY: Has daughters for family support and as mentioned, denies alcohol, tobacco, or illicit drug use. PHYSICAL EXAMINATION: VITAL SIGNS: Temperature 97.6, pulse 82, blood pressure 121/98, and respirations 25. GENERAL: Ms. Crane is alert and oriented. Her speech is clear. Her affect is somewhat excited, but appropriate. She is in no apparent distress, resting comfortably in bed. She is morbidly obese. HEENT: She is normocephalic and atraumatic. Sclerae anicteric. EOMs are intact. Oral mucosa is moist and pink with adequate dentition. NECK: Supple without jugular venous distention. HEART: Rate is irregularly irregular with crisp S1 and S2. PMI is minimally palpable due to her habitus. LUNGS: Lung sounds are distant, but clear. ABDOMEN: Obese, soft, and nontender. EXTREMITIES: Warm and dry to touch without clubbing or cyanosis. There is bilateral lower extremity edema, 1+. NEUROLOGIC: Grossly intact and nonfocal. Gait was not assessed. LABORATORY DATA: Hematology is reviewed and unremarkable. Chemistry; potassium 3.6 and creatinine 0.73. Serial troponins were negative. Liver enzymes are within normal limits. DATABASE: Echocardiogram on 08/26/2018, EF 50% to 55%, mild MR, mild TR. Atrial size was normal bilaterally. Telemetry and EKGs were all personally reviewed and reflect persistent atrial fibrillation. IMPRESSION: 1. Highly symptomatic persistent atrial fibrillation, status post recent KOTA cardioversion in August 2018 and failed flecainide due to poor tolerance and side effects. 2. Oral anticoagulation on Eliquis for a CHADS-VASc score of 3 (female gender, diabetes, and hypertension), tolerating without bleeding issues. 3. Type 2 diabetes. 4. Morbid obesity. BMI is 45. RECOMMENDATIONS: I had a long discussion with Ms. Crane regarding treatment options for atrial arrhythmias including rate control, cardioversion, antiarrhythmic therapy, and ablation therapies. At this point, she has failed class 1C antiarrhythmic therapy with flecainide. She is tolerating oral anticoagulation well. Based on the options we discussed, she would prefer pulmonary venous isolation, our recommendation is well as prudent next step given how symptomatic she is and with her early recurrence since her recent cardioversion. We discussed risks, benefits, and alternatives. Risks include bleeding at the groin site, pericardial effusion, atrial esophageal fistula, tamponade, and/or stroke. The patient is agreeable and wishes to proceed. We will schedule her for later this week, likely on afternoon for her ablation and anticipate possible discharge day after unless additional medical issues are unresolved at that time. Thank you for allowing us to participate in the care of this patient. Job ID: [id number]
[2018-09-27] MEDS: clonazePAM 0.5 MG TAB PO SCH (20:12)
--- NOTE | 2018-09-27 22:16 | PDOC.PN ---
- Subjective Encounter Start Date: 09/27/18 Encounter Start Time: 15:00 - Objective Resuscitation Status - Order Detail: 09/25/18 21:50 Resuscitation Status Routine Resuscitation Status: FULL: Full Resuscitation MAR Reviewed: Yes Vital Signs & Weight: Vital Signs (12 hours) Temp 09/27/18 19:18 97.5 F L 09/27/18 14:49 98.1 F 09/27/18 10:36 97.6 F Weight Weight 287 lb 8 oz Most Recent Monitor Data Heart Rate from ECG 72 NIBP 127/78 NIBP BP-Mean 94 Respiration from ECG 21 SpO2 94 I&O: 09/26/18 09/27/18 09/28/18 06:59 06:59 06:59 Intake Total 441 360 4677 Output Total 650 1680 8610 Balance -012 -0196 -9008 Result Diagrams: 09/27/18 05:40 09/27/18 05:40 EKG Reviewed by me: Yes (Tele Afib/flutter) Phys Exam - Physical Examination Constitutional: NAD Respiratory: no wheezing, no rhonchi Cardiovascular: no rub, irregular Gastrointestinal: soft, non-tender, positive bowel sounds Musculoskeletal: no edema Neurological: non-focal, moves all 4 limbs Dx/Plan - Plan 1. Afib/flutter with RVR - on Cardizem drip 2. Chronic Anticoag with Eliquis 3. Morbid obesity BMI 45 4. Chronic resp failure on home O2 5. Anxiety 6. Depression - mild - stable 7. Chronic Diastolic HF - Stage C 8. HTN PLAN: Cont Cardizem drip/Eliquis Ablation on Cont other meds as below AM labs Review of Systems - Review of Systems Respiratory: negative: Cough, Dry, Shortness of Breath, Hemoptysis, SOB with Excertion, Pleuritic Pain, Sputum, Wheezing Cardiovascular: negative: chest pain, palpitations, orthopnea, paroxysmal nocturnal dyspnea, edema, light headedness, other Gastrointestinal: negative: Nausea, Vomiting, Abdominal Pain, Diarrhea, Constipation, Melena, Hematochezia, Other - Medications/Allergies Allergies/Adverse Reactions: Allergies Allergy/AdvReac Type Severity Reaction Status Date / Time No Known Allergies Allergy Verified 09/03/18 18:04 Medications: Current Medications Acetaminophen (Tylenol) 650 mg PO Q4H PRN PRN Reason: Headache/Fever/Mild Pain (1-3) Hydrocodone Bitart/Acetaminophen ([place] 5/325) 1 tab PO Q4H PRN PRN Reason: Moderate Pain (4-6) Albuterol/Ipratropium (Duoneb) 3 ml NEB Q6H PRN PRN Reason: SOB &/or Wheezing Last Admin: 09/27/18 05:01 Dose: 3 ml Alprazolam (Xanax) 0.25 mg PO BIDPRN PRN PRN Reason: Anxiety Last Admin: 09/27/18 10:12 Dose: 0.25 mg Apixaban (Eliquis) 5 mg PO BID [facility] Last Admin: 09/27/18 20:13 Dose: 5 mg Benzonatate (Tessalon) 100 mg PO Q6H PRN PRN Reason: Cough Bisacodyl (Dulcolax) 10 mg [place] DAILYPRN PRN PRN Reason: Constipation Buspirone HCl (Buspar) 10 mg PO BID [facility] Last Admin: 09/27/18 20:13 Dose: 10 mg Calcium Carbonate (Tums) 1,000 mg PO Q4H PRN PRN Reason: Heartburn or Indigestion Clonazepam (Klonopin) 2 mg PO HS [facility] Last Admin: 09/27/18 20:12 Dose: 2 mg Cyclobenzaprine HCl (Flexeril) 10 mg PO TIDPRN PRN PRN Reason: Muscle Spasm Digoxin (Lanoxin) 0.25 mg PO DAILY [facility] Last Admin: 09/27/18 09:43 Dose: 0.25 mg Diltiazem HCl (Cardizem Cd) 360 mg PO DAILY [facility] Last Admin: 09/27/18 09:43 Dose: 360 mg Duloxetine HCl (Cymbalta) 30 mg PO DAILY [facility] Last Admin: 09/27/18 09:43 Dose: 30 mg Estradiol (Estrace) 1 mg PO DAILY [facility] Last Admin: 09/27/18 09:43 Dose: 1 mg Famotidine (Pepcid) 20 mg PO BID [facility] Last Admin: 09/27/18 20:12 Dose: 20 mg Furosemide (Lasix) 40 mg PO DAILY-AC [facility] Last Admin: 09/27/18 09:43 Dose: 40 mg Gabapentin (Neurontin) 300 mg PO TID [facility] Last Admin: 09/27/18 20:12 Dose: 300 mg Diltiazem HCl 125 mg/ Sodium (Chloride) 125 mls @ 5 mls/hr IVPB INF [facility]; Protocol Last Admin: 09/26/18 16:06 Dose: 125 mls Loperamide HCl (Imodium) 2 mg PO PRN PRN PRN Reason: Diarrhea/Loose Stools Non-Formulary Medication (Vortioxetine Hydrobromide [Trintellix]) 10 mg PO DAILY [facility] Nystatin (Mycostatin Powder) 0 gm TOP BID [facility] Last Admin: 09/27/18 20:13 Dose: 1 applic Senna/Docusate Sodium (Senokot S) 2 tab PO BIDPRN PRN PRN Reason: Constipation
[2018-09-28 05:32] LABS: #Eosinphils 0.1 thou/uL (0.0-0.7); #Lymphocytes 1.7 thou/uL (1.20-3.40); #Monocytes 0.4 thou/uL (0.11-0.59); #Neutrophils 3.4 thou/uL (1.40-6.50); %Basophils 0.2 % (0.0-1.0); %Eosinophils 1.7 % (0.0-10.0); %Lymphocytes 30.5 % (21.0-51.0); %Monocytes 6.9 % (0.0-10.0); %Neutrophils 60.7 % (42.0-75.0); Hemoglobin 11.9 g/dL (12.0-16.0); Mean Corpuscular HGB CONC 33.1 g/dL (32.0-36.0); Mean Corpuscular Hemoglobin 29.8 pg (27.0-31.0); Mean Platelet Volume 8.3 fL (7.4-10.4); Platelet Count 205 thou/uL (130-400); RBC Distribution Width 16.7 % (11.5-14.5); Red Blood Cell (RBC) Count 4.01 mill/uL (4.20-5.40); White Blood Cell (WBC) Count 5.6 thou/uL (4.8-10.8)
[2018-09-28 05:43] LABS: ALT (SGPT) 7 U/L (8-55); AST (SGOT) 11 U/L (5-34); Albumin 3.2 g/dL (3.5-5.0); Alkaline Phosphatase 125 U/L (40-150); Anion Gap 11 mmol/L (10-20); BUN (Urea Nitrogen) 7 mg/dL (9.8-20.1); Bilirubin, Total 0.9 mg/dL (0.2-1.2); Calc. Creatinine Clearance 202 mL/min (70-130); Calcium 8.7 mg/dL (7.8-10.44); Carbon Dioxide 28 mmol/L (22-29); Chloride 103 mmol/L (98-107); Estimated GFR-MDRD 90; Globulin 2.7 g/dL (2.4-3.5); Glucose 143 mg/dL (70-105); Magnesium 2.1 mg/dL (1.6-2.6); Potassium 3.9 mmol/L (3.5-5.1); Protein, Total 5.9 g/dL (6.0-8.3); Sodium 138 mmol/L (136-145)
[2018-09-28] MEDS: DULoxetine 30 MG CAP PO SCH (09:39)
[2018-09-28] MEDS: Furosemide 40 MG TAB PO SCH (09:39)
[2018-09-28] MEDS: Digoxin 0.25 MG TAB PO SCH (09:39)
[2018-09-28] MEDS: Apixaban 5 MG TAB PO SCH ×2 (09:39→22:01)
[2018-09-28] MEDS: busPIRone HCl 10 MG TAB PO SCH ×2 (09:39→20:26)
[2018-09-28] MEDS: Nystatin Powder 15 GM BOT TOP SCH ×2 (09:40→20:30)
[2018-09-28] MEDS: Estradiol 1 MG TAB PO SCH (09:40)
[2018-09-28] MEDS: Gabapentin 300 MG CAP PO SCH ×3 (09:40→20:26)
[2018-09-28] MEDS: Famotidine 20 MG TAB PO SCH ×2 (09:40→20:27)
[2018-09-28] MEDS: ALPRAZolam 0.25 MG TAB PO PRN ×2 (09:43→22:01)
--- NOTE | 2018-09-28 11:59 | PDOC.CTH ---
Cardiology Progress Note - Subjective EP PROGRESS NOTEE: 09/28/18 Seen as follow up for AF. No new EP/cardiac concerns this AM. Feels well, eager to have ablation tomorrow. - Objective Vital Signs Temp Pulse Pulse Ox 09/28/18 09:39 81 09/28/18 08:00 97.4 F L 93 L 09/28/18 04:00 97.3 F L Weight 292 lb 09/27/18 09/28/18 09/29/18 06:59 06:59 06:59 Intake Total 510 2136 Output Total 3830 4670 500 Balance -5820 -1413 -676 - Physical Examination General/Neuro: alert & oriented x3, NAD Neck: carotid US brisk, no JVD present Lungs: CTA, unlabored respirations Heart: PMI normal, other: (Coarse AF/FL, rate controlled) Abdomen: no HSM, NT/ND, soft - Telemetry Telemetry Rhythm: AF, rate controlled - Labs Result Diagrams: 09/28/18 04:56 09/28/18 04:56 Troponin/CKMB Troponin I 0.014 ng/mL (< 0.028) 09/26/18 00:41 - Assessment/Plan IMPRESSION: 1. Highly symptomatic persistent atrial fibrillation -status post recent KOTA/cardioversion in August 2018 and failed flecainide due to poor tolerance and side effects. 2. Oral anticoagulation on Eliquis for a CHADS-VASc score of 3 (female gender, diabetes, and hypertension) -tolerating without bleeding issues. - hold eliquis in AM before PVAI 3. Type 2 diabetes. 4. Morbid obesity. - BMI is 45. - highly encourage drastic weightloss RECOMMENDATIONS: Rate controlled on Diltaizem gtt today. Plan for PVI tomorrow PM. NPO after MN. Hold Eliquis in AM. No pre-op testing needed s/p prior total hysterectomy.
[2018-09-28] MEDS ORDERED: Arformoterol 15 MCG/2 ML NEB NEB SCH (12:30)
--- NOTE | 2018-09-28 13:09 | PDOC.PN ---
- Subjective Encounter Start Date: 09/28/18 Encounter Start Time: 09:30 -: old records requested/rev Patient seen and examined. No new complaints. No overnight events - Objective Resuscitation Status - Order Detail: 09/25/18 21:50 Resuscitation Status Routine Resuscitation Status: FULL: Full Resuscitation MAR Reviewed: Yes Vital Signs & Weight: Vital Signs (12 hours) Temp Pulse Resp Pulse Ox 09/28/18 12:55 72 15 09/28/18 09:39 81 09/28/18 08:00 97.4 F L 93 L 09/28/18 04:00 97.3 F L Weight Weight 292 lb Most Recent Monitor Data Heart Rate from ECG 75 NIBP 110/83 NIBP BP-Mean 92 Respiration from ECG 23 SpO2 98 I&O: 09/27/18 09/28/18 09/29/18 06:59 06:59 06:59 Intake Total 510 2136 Output Total 3830 4430 500 Balance -3320 -2614 -500 Result Diagrams: 09/28/18 04:56 09/28/18 04:56 Additional Labs: Accuchecks 09/28/18 06:55 POC Glucose 150 H EKG Reviewed by me: Yes Phys Exam - Physical Examination Constitutional: NAD HEENT: PERRLA, moist MMs, sclera anicteric Neck: no JVD, supple Respiratory: no wheezing, no rales, no rhonchi Cardiovascular: no significant murmur, irregular Gastrointestinal: soft, non-tender, no distention, positive bowel sounds obesity+ Musculoskeletal: no edema, pulses present Neurological: non-focal, normal sensation, moves all 4 limbs Psychiatric: normal affect, A&O x 3 Skin: no rash, normal turgor Dx/Plan (1) Atrial fibrillation with RVR Code(s): I48.91 - UNSPECIFIED ATRIAL FIBRILLATION Status: Acute Comment: (2) HTN (hypertension) Code(s): I10 - ESSENTIAL (PRIMARY) HYPERTENSION Status: Chronic Qualifiers: Hypertension type: essential hypertension Qualified Code(s): I10 - Essential (primary) hypertension (3) Chronic stage c diastolic heart failure Code(s): I50.32 - CHRONIC DIASTOLIC (CONGESTIVE) HEART FAILURE Status: Chronic (4) Chronic respiratory failure with hypoxia, on home O2 therapy Code(s): J96.11 - CHRONIC RESPIRATORY FAILURE WITH HYPOXIA; Z99.81 - DEPENDENCE ON SUPPLEMENTAL OXYGEN Status: Chronic (5) Morbid obesity with BMI of 45.0-49.9, adult Code(s): E66.01 - MORBID (SEVERE) OBESITY DUE TO EXCESS CALORIES; Z68.42 - BODY MASS INDEX (BMI) 45.0-49.9, ADULT Status: Chronic (6) Anxiety and depression Code(s): F41.9 - ANXIETY DISORDER, UNSPECIFIED; F32.9 - MAJOR DEPRESSIVE DISORDER, SINGLE EPISODE, UNSPECIFIED Status: Chronic (7) COPD (chronic obstructive pulmonary disease) Status: Chronic - Plan cont current plan of care, respiratory therapy * transfer to tele * continue cardizem drip for rate control * ablation procedure may be tomorrow * medication reviewed as below * symptomatic treatment * overall stable. Review of Systems - Review of Systems ENT: negative: Ear Pain, Ear Discharge, Nose Pain, Nose Discharge, Nose Congestion, Mouth Pain, Mouth Swelling, Throat Pain, Throat Swelling, Other Respiratory: negative: Cough, Dry, Shortness of Breath, Hemoptysis, SOB with Excertion, Pleuritic Pain, Sputum, Wheezing Cardiovascular: negative: chest pain, palpitations, orthopnea, paroxysmal nocturnal dyspnea, edema, light headedness, other Gastrointestinal: negative: Nausea, Vomiting, Abdominal Pain, Diarrhea, Constipation, Melena, Hematochezia, Other Genitourinary: negative: Dysuria, Frequency, Incontinence, Hematuria, Retention , Other Musculoskeletal: negative: Neck Pain, Shoulder Pain, Arm Pain, Back Pain, Hand Pain, Leg Pain, Foot Pain, Other Skin: negative: Rash, Lesions, Ernie, Bruising, Other - Medications/Allergies Allergies/Adverse Reactions: Allergies Allergy/AdvReac Type Severity Reaction Status Date / Time No Known Allergies Allergy Verified 09/03/18 18:04 Medications: Current Medications Acetaminophen (Tylenol) 650 mg PO Q4H PRN PRN Reason: Headache/Fever/Mild Pain (1-3) Last Admin: 09/28/18 09:43 Dose: 650 mg Hydrocodone Bitart/Acetaminophen ([place] 5/325) 1 tab PO Q4H PRN PRN Reason: Moderate Pain (4-6) Albuterol/Ipratropium (Duoneb) 3 ml NEB Q6H PRN PRN Reason: SOB &/or Wheezing Last Admin: 09/28/18 12:55 Dose: 3 ml Alprazolam (Xanax) 0.25 mg PO BIDPRN PRN PRN Reason: Anxiety Last Admin: 09/28/18 09:43 Dose: 0.25 mg Apixaban (Eliquis) 5 mg PO BID [facility] Last Admin: 09/28/18 09:39 Dose: 5 mg Arformoterol Tartrate (Brovana) 15 mcg NEB BID-RT [facility] Arformoterol Tartrate (Brovana) 15 mcg NEB NOW [facility] Stop: 09/28/18 14:00 Last Admin: 09/28/18 12:55 Dose: 15 mcg Benzonatate (Tessalon) 100 mg PO Q6H PRN PRN Reason: Cough Bisacodyl (Dulcolax) 10 mg [place] DAILYPRN PRN PRN Reason: Constipation Buspirone HCl (Buspar) 10 mg PO BID [facility] Last Admin: 09/28/18 09:39 Dose: 10 mg Calcium Carbonate (Tums) 1,000 mg PO Q4H PRN PRN Reason: Heartburn or Indigestion Clonazepam (Klonopin) 2 mg PO [facility] Last Admin: 09/27/18 20:12 Dose: 2 mg Cyclobenzaprine HCl (Flexeril) 10 mg PO TIDPRN PRN PRN Reason: Muscle Spasm Digoxin (Lanoxin) 0.25 mg PO DAILY [facility] Last Admin: 09/28/18 09:39 Dose: 0.25 mg Diltiazem HCl (Cardizem Cd) 360 mg PO DAILY [facility] Last Admin: 09/28/18 09:39 Dose: 360 mg Duloxetine HCl (Cymbalta) 30 mg PO DAILY [facility] Last Admin: 09/28/18 09:39 Dose: 30 mg Estradiol (Estrace) 1 mg PO DAILY [facility] Last Admin: 09/28/18 09:40 Dose: 1 mg Famotidine (Pepcid) 20 mg PO BID [facility] Last Admin: 09/28/18 09:40 Dose: 20 mg Furosemide (Lasix) 40 mg PO DAILY[facility] Last Admin: 09/28/18 09:39 Dose: 40 mg Gabapentin (Neurontin) 300 mg PO TID [facility] Last Admin: 09/28/18 09:40 Dose: 300 mg Diltiazem HCl 125 mg/ Sodium (Chloride) 125 mls @ 5 mls/hr IVPB INF [facility]; Protocol Last Admin: 09/26/18 16:06 Dose: 125 mls Loperamide HCl (Imodium) 2 mg PO PRN PRN PRN Reason: Diarrhea/Loose Stools Non-Formulary Medication (Vortioxetine Hydrobromide [Trintellix]) 10 mg PO DAILY [facility] Nystatin (Mycostatin Powder) 0 gm TOP BID [facility] Last Admin: 09/28/18 09:40 Dose: 1 applic Senna/Docusate Sodium (Senokot S) 2 tab PO BIDPRN PRN PRN Reason: Constipation
[2018-09-28] MEDS: Arformoterol 15 MCG/2 ML NEB NEB SCH (18:49)
[2018-09-28] MEDS: clonazePAM 0.5 MG TAB PO SCH (20:25)
[2018-09-29 05:07] LABS: #Eosinphils 0.1 thou/uL (0.0-0.7); #Lymphocytes 1.6 thou/uL (1.20-3.40); #Monocytes 0.4 thou/uL (0.11-0.59); #Neutrophils 2.9 thou/uL (1.40-6.50); %Basophils 0.7 % (0.0-1.0); %Eosinophils 1.8 % (0.0-10.0); %Lymphocytes 32.3 % (21.0-51.0); %Monocytes 7.3 % (0.0-10.0); %Neutrophils 57.9 % (42.0-75.0); Mean Corpuscular HGB CONC 34.1 g/dL (32.0-36.0); Mean Corpuscular Hemoglobin 30.3 pg (27.0-31.0); Mean Corpuscular Volume 88.9 fL (78.0-98.0); Mean Platelet Volume 8.4 fL (7.4-10.4); Platelet Count 207 thou/uL (130-400); RBC Distribution Width 16.7 % (11.5-14.5); Red Blood Cell (RBC) Count 3.97 mill/uL (4.20-5.40); White Blood Cell (WBC) Count 5.1 thou/uL (4.8-10.8)
[2018-09-29 05:28] LABS: Anion Gap 15 mmol/L (10-20); BUN (Urea Nitrogen) 10 mg/dL (9.8-20.1); Calc. Creatinine Clearance 205 mL/min (70-130); Carbon Dioxide 24 mmol/L (22-29); Chloride 102 mmol/L (98-107); Estimated GFR-MDRD Greater than 90; Glucose 134 mg/dL (70-105); Sodium 137 mmol/L (136-145)
[2018-09-29] MEDS: Arformoterol 15 MCG/2 ML NEB NEB SCH ×2 (07:07→18:30)
[2018-09-29] MEDS: busPIRone HCl 10 MG TAB PO SCH ×2 (10:13→21:02)
[2018-09-29] MEDS: Famotidine 20 MG TAB PO SCH ×2 (10:13→21:00)
[2018-09-29] MEDS: DULoxetine 30 MG CAP PO SCH (10:13)
[2018-09-29] MEDS: Estradiol 1 MG TAB PO SCH (10:13)
[2018-09-29] MEDS: Gabapentin 300 MG CAP PO SCH ×3 (10:14→21:00)
[2018-09-29] MEDS: Furosemide 40 MG TAB PO SCH (10:14)
[2018-09-29] MEDS: ALPRAZolam 0.25 MG TAB PO PRN (10:18)
[2018-09-29 11:37] VITALS: BP 110/76
--- NOTE | 2018-09-29 13:06 | PDOC.PN ---
- Subjective Encounter Start Date: 09/29/18 Encounter Start Time: 07:00 Patient seen and examined. No new complaints. No overnight events - Objective Resuscitation Status - Order Detail: 09/25/18 21:50 Resuscitation Status Routine Resuscitation Status: FULL: Full Resuscitation MAR Reviewed: Yes Vital Signs & Weight: Vital Signs (12 hours) Temp Pulse Resp BP Pulse Ox 09/29/18 11:36 97.6 F 74 16 110/76 99 09/29/18 08:00 97.5 F L 09/29/18 07:07 85 19 09/29/18 04:34 97.9 F Weight Weight 293 lb 8 oz Most Recent Monitor Data Heart Rate from ECG 86 NIBP 110/76 NIBP BP-Mean 87 Respiration from ECG 19 SpO2 97 I&O: 09/28/18 09/29/18 09/30/18 06:59 06:59 06:59 Intake Total 2136 1680 Output Total 6710 2467 Balance -3864 -6370 Result Diagrams: 09/29/18 04:42 09/29/18 04:42 EKG Reviewed by me: Yes Phys Exam - Physical Examination Constitutional: NAD HEENT: PERRLA, moist MMs, sclera anicteric Neck: no JVD, supple Respiratory: no wheezing, no rales, no rhonchi Cardiovascular: no significant murmur, irregular Gastrointestinal: soft, non-tender, no distention, positive bowel sounds Musculoskeletal: no edema, pulses present Neurological: non-focal, normal sensation Lymphatic: no nodes Psychiatric: normal affect, A&O x 3 Skin: no rash, normal turgor Dx/Plan (1) Atrial fibrillation with RVR Code(s): I48.91 - UNSPECIFIED ATRIAL FIBRILLATION Status: Acute Comment: (2) HTN (hypertension) Code(s): I10 - ESSENTIAL (PRIMARY) HYPERTENSION Status: Chronic Qualifiers: Hypertension type: essential hypertension Qualified Code(s): I10 - Essential (primary) hypertension (3) Chronic stage c diastolic heart failure Code(s): I50.32 - CHRONIC DIASTOLIC (CONGESTIVE) HEART FAILURE Status: Chronic (4) Chronic respiratory failure with hypoxia, on home O2 therapy Code(s): J96.11 - CHRONIC RESPIRATORY FAILURE WITH HYPOXIA; Z99.81 - DEPENDENCE ON SUPPLEMENTAL OXYGEN Status: Chronic (5) Morbid obesity with BMI of 45.0-49.9, adult Code(s): E66.01 - MORBID (SEVERE) OBESITY DUE TO EXCESS CALORIES; Z68.42 - BODY MASS INDEX (BMI) 45.0-49.9, ADULT Status: Chronic (6) Anxiety and depression Code(s): F41.9 - ANXIETY DISORDER, UNSPECIFIED; F32.9 - MAJOR DEPRESSIVE DISORDER, SINGLE EPISODE, UNSPECIFIED Status: Chronic (7) COPD (chronic obstructive pulmonary disease) Status: Chronic - Plan cont current plan of care * today ablation procedure * after that will observe overnight at tele floor * medication reviewed as below * symptomatic treatment * expecting discharge tomorrow. Review of Systems - Review of Systems ENT: negative: Ear Pain, Ear Discharge, Nose Pain, Nose Discharge, Nose Congestion, Mouth Pain, Mouth Swelling, Throat Pain, Throat Swelling, Other Respiratory: negative: Cough, Dry, Shortness of Breath, Hemoptysis, SOB with Excertion, Pleuritic Pain, Sputum, Wheezing Cardiovascular: negative: chest pain, palpitations, orthopnea, paroxysmal nocturnal dyspnea, edema, light headedness, other Gastrointestinal: negative: Nausea, Vomiting, Abdominal Pain, Diarrhea, Constipation, Melena, Hematochezia, Other Genitourinary: negative: Dysuria, Frequency, Incontinence, Hematuria, Retention , Other Musculoskeletal: negative: Neck Pain, Shoulder Pain, Arm Pain, Back Pain, Hand Pain, Leg Pain, Foot Pain, Other - Medications/Allergies Allergies/Adverse Reactions: Allergies Allergy/AdvReac Type Severity Reaction Status Date / Time No Known Allergies Allergy Verified 09/03/18 18:04 Medications: Current Medications Acetaminophen (Tylenol) 650 mg PO Q4H PRN PRN Reason: Headache/Fever/Mild Pain (1-3) Last Admin: 09/28/18 09:43 Dose: 650 mg Hydrocodone Bitart/Acetaminophen ([place] 5/325) 1 tab PO Q4H PRN PRN Reason: Moderate Pain (4-6) Albuterol/Ipratropium (Duoneb) 3 ml NEB Q6H PRN PRN Reason: SOB &/or Wheezing Last Admin: 09/29/18 07:07 Dose: 3 ml Alprazolam (Xanax) 0.25 mg PO BIDPRN PRN PRN Reason: Anxiety Last Admin: 09/29/18 10:18 Dose: 0.25 mg Apixaban (Eliquis) 5 mg PO BID [facility] Last Admin: 09/28/18 22:01 Dose: 5 mg Arformoterol Tartrate (Brovana) 15 mcg NEB BID-RT [facility] Last Admin: 09/29/18 07:07 Dose: 15 mcg Benzonatate (Tessalon) 100 mg PO Q6H PRN PRN Reason: Cough Bisacodyl (Dulcolax) 10 mg [place] DAILYPRN PRN PRN Reason: Constipation Buspirone HCl (Buspar) 10 mg PO BID [facility] Last Admin: 09/29/18 10:13 Dose: 10 mg Calcium Carbonate (Tums) 1,000 mg PO Q4H PRN PRN Reason: Heartburn or Indigestion Clonazepam (Klonopin) 2 mg PO [facility] Last Admin: 09/28/18 20:25 Dose: 2 mg Cyclobenzaprine HCl (Flexeril) 10 mg PO TIDPRN PRN PRN Reason: Muscle Spasm Last Admin: 09/28/18 22:02 Dose: 10 mg Digoxin (Lanoxin) 0.25 mg PO DAILY [facility] Last Admin: 09/28/18 09:39 Dose: 0.25 mg Diltiazem HCl (Cardizem Cd) 360 mg PO DAILY [facility] Last Admin: 09/28/18 09:39 Dose: 360 mg Duloxetine HCl (Cymbalta) 30 mg PO DAILY [facility] Last Admin: 09/29/18 10:13 Dose: 30 mg Estradiol (Estrace) 1 mg PO DAILY [facility] Last Admin: 09/29/18 10:13 Dose: 1 mg Famotidine (Pepcid) 20 mg PO BID [facility] Last Admin: 09/29/18 10:13 Dose: 20 mg Furosemide (Lasix) 40 mg PO DAILY-AC [facility] Last Admin: 09/29/18 10:14 Dose: 40 mg Gabapentin (Neurontin) 300 mg PO TID [facility] Last Admin: 09/29/18 10:14 Dose: 300 mg Diltiazem HCl 125 mg/ Sodium (Chloride) 125 mls @ 5 mls/hr IVPB INF [facility]; Protocol Last Admin: 09/26/18 16:06 Dose: 125 mls Loperamide HCl (Imodium) 2 mg PO PRN PRN PRN Reason: Diarrhea/Loose Stools Non-Formulary Medication (Vortioxetine Hydrobromide [Trintellix]) 10 mg PO DAILY [facility] Nystatin (Mycostatin Powder) 0 gm TOP BID [facility] Last Admin: 09/28/18 20:30 Dose: 1 applic Senna/Docusate Sodium (Senokot S) 2 tab PO BIDPRN PRN PRN Reason: Constipation
[2018-09-29] MEDS ORDERED: Heparin 10,000 UNITS/1 ML VIAL ONE (14:12)
[2018-09-29] MEDS: Nystatin Powder 15 GM BOT TOP SCH ×2 (14:45→21:09)
[2018-09-29] MEDS: Digoxin 0.25 MG TAB PO SCH (14:45)
[2018-09-29] MEDS ORDERED: Midazolam HCl 2 mg/2 ml Vial ONE (15:02)
[2018-09-29] MEDS ORDERED: Fentanyl 100 MCG/2 ML VIAL ONE (15:02)
[2018-09-29] MEDS ORDERED: Lidocaine 1% PF 5 ML VIAL ONE (15:51)
[2018-09-29] MEDS ORDERED: Rocuronium Bromide 10 MG/ML (10ML VIAL) ONE (15:51)
[2018-09-29] MEDS ORDERED: PROPOFOL 200 MG/20 ML VIAL ONE (15:51)
[2018-09-29] MEDS ORDERED: PHENYLEPHRINE-NS 100 MCG/ML 10 ML SYRINGE ONE (15:51)
[2018-09-29] MEDS ORDERED: Heparin 30,000 units/30 ml VIAL ONE (15:51)
[2018-09-29] MEDS ORDERED: Heparin 25,000 units/D5W 500 ML ONE (16:20)
[2018-09-29] MEDS ORDERED: Isoproterenol 0.2 MG/1 ML AMP ONE (17:46)
--- NOTE | 2018-09-29 17:49 | PRG ---
DATE OF SERVICE: 09/29/2018 SUBJECTIVE: Ms. Crane is feeling better. She is awaiting her ablation procedure today. OBJECTIVE: VITAL SIGNS: Heart rate is 70, blood pressure is 117/80, respiratory rate is in the teens. GENERAL: She is in no distress. LUNGS: Clear. IMPRESSION: 1. Atrial fibrillation, awaiting ablation. 2. Hypertension. 3. Diastolic heart failure. 4. Obesity. 5. Chronic respiratory failure, on home oxygen. 6. Chronic obstructive pulmonary disease. Hopefully, she will be a candidate to go home in 24 to 48 hours if chronic obstructive pulmonary disease has been stable. Job ID: [id number]
[2018-09-29] MEDS ORDERED: Protamine Sulfate 50 MG/5 ML VIAL ONE (18:18)
[2018-09-29] MEDS ORDERED: Ondansetron HCl/PF 4 MG/2 ML Vial IVP PRN (19:15)
[2018-09-29] MEDS ORDERED: Promethazine HCl 25 MG/ML VIAL SLOW IVP PRN (19:15)
[2018-09-29] MEDS ORDERED: Promethazine HCl 25 MG/ML VIAL IM PRN (19:15)
[2018-09-29] MEDS ORDERED: Diltiazem 125 MG in Sodium Chloride 0.9% 100 ML IVPB PRN (19:50)
[2018-09-29] MEDS: clonazePAM 0.5 MG TAB PO SCH (21:01)
[2018-09-29] MEDS: Acetaminophen/Codeine 30-300mg Tablet PO PRN (21:05)
[2018-09-29] MEDS ORDERED: Apixaban 5 MG TAB PO SCH (23:00)
--- NOTE | 2018-09-30 01:13 | OP ---
DATE OF PROCEDURE: 09/29/2018 PROCEDURES PERFORMED: Electrophysiology study and radiofrequency ablation. REASON FOR PROCEDURE: Mrs. Crane is a 53-year-old woman with history of persisting atrial fibrillation despite antiarrhythmic drugs and cardioversions. She is highly symptomatic and was admitted with atrial fibrillation and rapid rates. She has been well anticoagulated without interruptions for over a month. DESCRIPTION OF PROCEDURE: The patient received propofol by Anesthesia specialist for general anesthesia. The left and right femoral venous area was prepped, draped, and anesthetized using subcutaneous lidocaine and under ultrasound guidance, both femoral veins were cannulated x2. On the left side, an 11-Swazi sheath was used to advance the intracardiac echocardiogram probe into the right atrium to monitor transeptal procedure and evaluate for any pericardial fluid perioperatively. Also, from the left femoral vein, a Preface sheath was advanced to the inferior vena cava, through which a DuoDeca catheter was advanced to the coronary sinus in the right atrial position. On the right side, actually two 8-Swazi short sheaths were introduced, through which a ThermoCool SFST catheter was advanced to the right atrium and 3D map of the right atrium was obtained. Following that, the ThermoCool SFST catheter was removed and transseptal procedure was performed under intracardiac echocardiogram and fluoroscopic monitoring. IV heparin bolus and drip was administered to keep ACT over 350. Two SL1 short sheaths were used to access the left atrium and through these, a 20-pole Lasso catheter as well as a ThermoCool SFST catheter was advanced to the left atrium. 3D map of the left atrium was obtained. An intra-esophageal probe was used to monitor temperatures throughout the case to avoid excessive heating in the esophagus. At this point, pulmonary venous isolation procedure was performed isolating all 4 pulmonary veins. The posterior wall also was isolated. Despite all these efforts, she later remained in atrial fibrillation. At this point, cardioversion was performed to restore sinus rhythm. Isuprel was administered at 20 mcg and any reconnections were re-ablated. The sheaths were pulled back to the right side. Heparin was stopped and it was reversed with protamine. Sheaths were pulled in the laboratory administrative director after adequate ACT was achieved. NUMERICAL FINDINGS: HV 41, QRS 71 milliseconds, QT 358 milliseconds. After gnosticism of sinus rhythm, AR was 179 milliseconds. The antegrade Wenckebach cycle length was about 350 milliseconds. No definite slow pathway was noted. Atrial access to my testing, the AV herman ERP was 500/200 milliseconds. Burst atrial pacing in the atrium after pulmonary venous isolation procedure did not re-induce atrial arrhythmias except for short nonsustained atrial flutter, which self-terminated. The total number of lesions delivered at 48. The total ablation time was 21 minutes and 50 seconds at 40 jerry. At the end of the case, cardiac silhouette did not change. Intracardiac echo did not reveal pericardial effusion. CONCLUSION: 1. Successful pulmonary venous isolation and posterior wall ablation performed. 2. No evidence of accessory pathway. 3. Normal His-Purkinje and AV herman function. PLAN: Continue oral anticoagulation. Monitor for recurrent arrhythmias. Job ID: [id number]
[2018-09-30] MEDS: Acetaminophen/Codeine 30-300mg Tablet PO PRN ×2 (06:26→20:09)
[2018-09-30] MEDS: Arformoterol 15 MCG/2 ML NEB NEB SCH ×2 (07:06→18:50)
[2018-09-30] MEDS: Estradiol 1 MG TAB PO SCH (08:33)
[2018-09-30] MEDS: DULoxetine 30 MG CAP PO SCH (08:33)
[2018-09-30] MEDS: Digoxin 0.25 MG TAB PO SCH (08:34)
[2018-09-30] MEDS: Apixaban 5 MG TAB PO SCH ×2 (08:35→20:13)
[2018-09-30] MEDS: busPIRone HCl 10 MG TAB PO SCH ×2 (08:35→20:12)
[2018-09-30] MEDS: Famotidine 20 MG TAB PO SCH ×2 (08:35→20:12)
[2018-09-30] MEDS: Furosemide 40 MG TAB PO SCH (08:36)
[2018-09-30] MEDS: Gabapentin 300 MG CAP PO SCH ×3 (08:36→20:12)
--- NOTE | 2018-09-30 10:09 | PRG ---
DATE OF SERVICE: 09/30/2018 SUBJECTIVE: Royce has no complaints. OBJECTIVE: GENERAL: She is in sinus rhythm, heart rates in 80s; blood pressure 101/80, respiratory rate 16, and oximetry is 98% on room air. LUNGS: Clear. HEART: Regular rhythm. ABDOMEN: Soft and nontender. IMPRESSION: 1. Status post ablation yesterday of atrial fibrillation. 2. History of gastric bypass. 3. History of diabetes. 4. History of chronic obstructive pulmonary disease. 5. Anticoagulation for atrial fibrillation. PLAN: Overall, she appears to be stable at this time. She get transferred out of the intermediate care unit to a telemetry bed. We will sign off on transfer. Her COPD has not been an issue this admission. Job ID: [id number]
--- NOTE | 2018-09-30 11:17 | PDOC.CTH ---
Cardiology Progress Note - Subjective EP PROGRESS NOTEE: 09/29/18 Seen as follow up for AF. No new EP/cardiac concerns this AM. Feels well after PVI ablation on 09/29/18. She has been been OOB despite bedrest long being over. Currie catheter remains in place. Denies heart racing, chest pain, palpitations, dizziness, or passing out. She is having some shortness of breath. Transfer orders to [facility] are in place. - Objective Vital Signs Temp Pulse Resp Pulse Ox 09/30/18 08:34 92 09/30/18 08:00 98.2 F 09/30/18 07:08 99 09/30/18 07:06 82 19 99 09/30/18 03:54 97.5 F L 09/30/18 00:00 97.0 F L Weight 293 lb 8 oz 09/29/18 09/30/18 10/01/18 06:59 06:59 06:59 Intake Total 1680 600 Output Total 3325 700 Balance -1645 -100 - Physical Examination General/Neuro: alert & oriented x3, NAD Neck: carotid US brisk, no JVD present Lungs: unlabored respirations, other: (crackles to BLL) Heart: PMI normal, RRR Abdomen: NT/ND, soft, other: (morbidly obese) - Telemetry Telemetry Rhythm: SR - Labs Result Diagrams: 09/29/18 04:42 09/29/18 04:42 Troponin/CKMB Troponin I 0.014 ng/mL (< 0.028) 09/26/18 00:41 - Assessment/Plan IMPRESSION: 1. Highly symptomatic persistent atrial fibrillation -s/p recent KOTA/cardioversion in August 2018 and failed flecainide due to poor tolerance and side effects. -s/p PVI ablation on 09/29/18, remains in SR since ablation. Off dilt gtt. 2. Oral anticoagulation on Eliquis for a CHADS-VASc score of 3 (female gender, diabetes, and hypertension) -tolerating without bleeding issues. -no bleeding issues seen with Eliquis 5mg PO BID resumed last night 3. Type 2 diabetes. 4. Morbid obesity. - BMI is 45. - highly encourage drastic weight loss 5. Hypertension -borderline hypotensive this AM. Continue to monitor. PLAN: Continue oral anticoagulation upon DC. Monitor for recurrent arrhythmias. No rhythm issues overnight. Stopped dig. Reducing PO diltiazem to 240mg QD. Additional IV lasix ordered for SOB/crackles. DC currie 2 hours after IV lasix given. Ok for DC later today or tomorrow once she voids post currie removal unless SOB worsens or becomes hypotensive which will be at the discretion of admitting MD. Please discharge on the following medications after PVI ablation: They are already active on her EMAR. 1. Protonix 40mg PO daily x 30 days 2. Carafate 1 gram PO QID x 14 days (#56) 3. Potassium 40mg PO QD PRN SOB 4. Potassium Chloride 20mEq PO PRN only if taking addition lasix for SOB that day. 5. Eliquis 5mg PO BID (needs refill submitted upon DC) EPS/ABLATION CONCLUSION: 1. Successful pulmonary venous isolation and posterior wall ablation performed. 2. No evidence of accessory pathway. 3. Normal His-Purkinje and AV herman function. The total ablation time was 21 minutes and 50 seconds at 40 jerry.
--- NOTE | 2018-09-30 11:21 | DIS ---
DATE OF ADMISSION: 09/25/2018 DATE OF DISCHARGE: 09/30/2018 PRIMARY CARE PHYSICIAN: [facility] Call admission. DISCHARGE DISPOSITION: Home. PRIMARY DISCHARGE DIAGNOSIS: Atrial fibrillation with rapid ventricular response, status post ablation. SECONDARY DISCHARGE DIAGNOSES: Morbid obesity with body mass index of 46; hypertension; chronic obstructive pulmonary disease; chronic stage C diastolic heart failure; chronic respiratory failure, on home oxygen; anxiety and depression. PRIMARY PROCEDURE/OPERATION: Dr. Ford did electrophysiologic study and radiofrequency ablation. RADIOLOGICAL INVESTIGATION: Chest x-ray. SIGNIFICANT LABORATORY DATA: WBC 5.1, hemoglobin 12.0, and platelet 207. INR 1.2. Sodium 137 and creatinine 0.68. Urinalysis normal. DISCHARGE MEDICATIONS: 1. Buspirone 10 mg p.o. b.i.d. 2. Flexeril 10 mg t.i.d. p.r.n. 3. Digoxin 0.5 mg p.o. daily. 4. Estradiol 1 mg p.o. daily. 5. Protonix 20 mg p.o. p.r.n. 6. Vortioxetine 10 mg daily. 7. Eliquis 5 mg b.i.d. 8. Brovana 15 mcg nebulization b.i.d. 9. Tessalon 100 mg q.6 hourly p.r.n. 10. Klonopin 2 mg p.o. at bedtime. 11. Cardizem CD 360 mg p.o. daily. 12. Cymbalta 30 mg daily. 13. Lasix 40 mg daily. 14. Gabapentin 300 mg t.i.d. 15. DuoNeb q.6 hourly p.r.n. CONTRAINDICATION: None. CODE STATUS: Full code. INPATIENT ENVIRONMENTAL REMEDIATION SPECIALIST: Dr. Ford was consulted while in hospital. Dr. Jim was consulted while in hospital. Pulmonary group was following while in hospital. TEST RESULTS PENDING ON DISCHARGE: None. ALLERGIES: NO KNOWN DRUG ALLERGIES. DISCHARGE PLAN: Posthospital, the patient will follow up with Dr. Higginbotham, Dr. Jim, and Dr. Ford as instructed. HOSPITAL COURSE: A 53-year-old female, who was admitted by me. Please see my HPI for further details. The patient was having increasing shortness of breath, palpitation, and she was found with atrial fibrillation with RVR. She was recently recovered from pneumonia. She was admitted to the [facility]. She was treated with Cardizem drips. Her rate was under control. Cardiology was consulted. Cardiology consulted analysis lead and analysis lead recommended a radiofrequency ablation and electrophysiologic study, which was done while in the hospital and subsequently, the patient was in sinus rhythm. The patient's rate was under control. The patient is doing much better at this point and she is hemodynamically stable. As long as all consultants are okay, then we will consider discharging her home later on today. I have seen and examined the patient at bedside today. PHYSICAL EXAMINATION: Her physical examination is normal. VITAL SIGNS: Normal. Currently, blood pressure 101/80, pulse 87, respiratory rate 18, saturation 98%, and weight 293 pounds. GENERAL: The patient is currently alert, awake, and in no obvious acute distress. HEAD: Normocephalic and atraumatic. LUNGS: Clear without any rhonchi. CARDIAC: S1 and S2, regular without any murmur. ABDOMEN: Soft. Obesity present. EXTREMITIES: No edema. NEUROLOGIC: Nonfocal examination. Overall, the patient is medically stable for discharge today. Job ID: [id number]
[2018-09-30] MEDS ORDERED: Furosemide 20 MG/2 ML VIAL SLOW IVP SCH (12:00)
[2018-09-30] MEDS: Nystatin Powder 15 GM BOT TOP SCH ×2 (12:40→22:58)
--- NOTE | 2018-09-30 13:02 | PDOC.PN ---
- Subjective Encounter Start Date: 09/30/18 Encounter Start Time: 10:00 Patient seen and examined. No new complaints. No overnight events - Objective Resuscitation Status - Order Detail: 09/25/18 21:50 Resuscitation Status Routine Resuscitation Status: FULL: Full Resuscitation MAR Reviewed: Yes Vital Signs & Weight: Vital Signs (12 hours) Temp Pulse Resp Pulse Ox 09/30/18 08:34 92 09/30/18 08:00 98.2 F 09/30/18 07:08 99 09/30/18 07:06 82 19 99 09/30/18 03:54 97.5 F L Weight Weight 293 lb 8 oz Most Recent Monitor Data Heart Rate from ECG 92 NIBP 119/80 NIBP BP-Mean 93 Respiration from ECG 23 SpO2 100 I&O: 09/29/18 09/30/18 10/01/18 06:59 06:59 06:59 Intake Total 1680 600 Output Total 3325 700 Balance -1645 -100 Result Diagrams: 09/29/18 04:42 09/29/18 04:42 Additional Labs: Accuchecks 09/30/18 06:42 POC Glucose 139 H EKG Reviewed by me: Yes Phys Exam - Physical Examination Constitutional: NAD HEENT: PERRLA, moist MMs, sclera anicteric Neck: no JVD, supple Respiratory: no wheezing, no rales, no rhonchi Cardiovascular: RRR, no significant murmur, no rub Gastrointestinal: soft, non-tender, no distention, positive bowel sounds Musculoskeletal: no edema, pulses present Neurological: non-focal, normal sensation Lymphatic: no nodes Psychiatric: normal affect, A&O x 3 Skin: no rash, normal turgor Dx/Plan (1) Atrial fibrillation with RVR Code(s): I48.91 - UNSPECIFIED ATRIAL FIBRILLATION Status: Acute Comment: (2) HTN (hypertension) Code(s): I10 - ESSENTIAL (PRIMARY) HYPERTENSION Status: Chronic Qualifiers: Hypertension type: essential hypertension Qualified Code(s): I10 - Essential (primary) hypertension (3) Chronic stage c diastolic heart failure Code(s): I50.32 - CHRONIC DIASTOLIC (CONGESTIVE) HEART FAILURE Status: Chronic (4) Chronic respiratory failure with hypoxia, on home O2 therapy Code(s): J96.11 - CHRONIC RESPIRATORY FAILURE WITH HYPOXIA; Z99.81 - DEPENDENCE ON SUPPLEMENTAL OXYGEN Status: Chronic (5) Morbid obesity with BMI of 45.0-49.9, adult Code(s): E66.01 - MORBID (SEVERE) OBESITY DUE TO EXCESS CALORIES; Z68.42 - BODY MASS INDEX (BMI) 45.0-49.9, ADULT Status: Chronic (6) Anxiety and depression Code(s): F41.9 - ANXIETY DISORDER, UNSPECIFIED; F32.9 - MAJOR DEPRESSIVE DISORDER, SINGLE EPISODE, UNSPECIFIED Status: Chronic (7) COPD (chronic obstructive pulmonary disease) Status: Chronic - Plan cont current plan of care * medication reviewed as below * symptomatic treatment * clinically stable * discharge if all income tax consultant are OK. Review of Systems - Review of Systems ENT: negative: Ear Pain, Ear Discharge, Nose Pain, Nose Discharge, Nose Congestion, Mouth Pain, Mouth Swelling, Throat Pain, Throat Swelling, Other Respiratory: negative: Cough, Dry, Shortness of Breath, Hemoptysis, SOB with Excertion, Pleuritic Pain, Sputum, Wheezing Cardiovascular: negative: chest pain, palpitations, orthopnea, paroxysmal nocturnal dyspnea, edema, light headedness, other Gastrointestinal: negative: Nausea, Vomiting, Abdominal Pain, Diarrhea, Constipation, Melena, Hematochezia, Other Genitourinary: negative: Dysuria, Frequency, Incontinence, Hematuria, Retention , Other Musculoskeletal: negative: Neck Pain, Shoulder Pain, Arm Pain, Back Pain, Hand Pain, Leg Pain, Foot Pain, Other - Medications/Allergies Allergies/Adverse Reactions: Allergies Allergy/AdvReac Type Severity Reaction Status Date / Time No Known Allergies Allergy Verified 09/03/18 18:04 Medications: Current Medications Acetaminophen (Tylenol) 650 mg PO Q4H PRN PRN Reason: Headache/Fever/Mild Pain (1-3) Last Admin: 09/28/18 09:43 Dose: 650 mg Acetaminophen/Codeine Phosphate (Tylenol #3) 1 tab PO Q4H PRN PRN Reason: Mild Pain (1-3) Last Admin: 09/30/18 06:26 Dose: 1 tab Acetaminophen/Codeine Phosphate (Tylenol #3) 2 tab PO Q4H PRN PRN Reason: Moderate Pain (4-6) Albuterol/Ipratropium (Duoneb) 3 ml NEB Q6H PRN PRN Reason: SOB &/or Wheezing Last Admin: 09/29/18 07:07 Dose: 3 ml Alprazolam (Xanax) 0.25 mg PO BIDPRN PRN PRN Reason: Anxiety Last Admin: 09/29/18 10:18 Dose: 0.25 mg Apixaban (Eliquis) 5 mg PO BID [facility] Last Admin: 09/30/18 08:35 Dose: 5 mg Arformoterol Tartrate (Brovana) 15 mcg NEB BID-RT [facility] Last Admin: 09/30/18 07:06 Dose: 15 mcg Benzonatate (Tessalon) 100 mg PO Q6H PRN PRN Reason: Cough Bisacodyl (Dulcolax) 10 mg UT DAILYPRN PRN PRN Reason: Constipation Buspirone HCl (Buspar) 10 mg PO BID [facility] Last Admin: 09/30/18 08:35 Dose: 10 mg Calcium Carbonate (Tums) 1,000 mg PO Q4H PRN PRN Reason: Heartburn or Indigestion Clonazepam (Klonopin) 2 mg PO HS [facility] Last Admin: 09/29/18 21:01 Dose: 2 mg Cyclobenzaprine HCl (Flexeril) 10 mg PO TIDPRN PRN PRN Reason: Muscle Spasm Last Admin: 09/28/18 22:02 Dose: 10 mg Diltiazem HCl (Cardizem Cd) 240 mg PO DAILY [facility] Duloxetine HCl (Cymbalta) 30 mg PO DAILY [facility] Last Admin: 09/30/18 08:33 Dose: 30 mg Estradiol (Estrace) 1 mg PO DAILY [facility] Last Admin: 09/30/18 08:33 Dose: 1 mg Famotidine (Pepcid) 20 mg PO BID [facility] Last Admin: 09/30/18 08:35 Dose: 20 mg Furosemide (Lasix) 40 mg PO DAILY-AC [facility] Last Admin: 09/30/18 08:36 Dose: 40 mg Furosemide (Lasix) 20 mg SLOW IVP NOW [facility] Stop: 09/30/18 14:00 Last Admin: 09/30/18 12:39 Dose: 20 mg Gabapentin (Neurontin) 300 mg PO TID [facility] Last Admin: 09/30/18 08:36 Dose: 300 mg Loperamide HCl (Imodium) 2 mg PO PRN PRN PRN Reason: Diarrhea/Loose Stools Non-Formulary Medication (Vortioxetine Hydrobromide [Trintellix]) 10 mg PO DAILY [facility] Nystatin (Mycostatin Powder) 0 gm TOP BID [facility] Last Admin: 09/30/18 12:40 Dose: 1 applic Senna/Docusate Sodium (Senokot S) 2 tab PO BIDPRN PRN PRN Reason: Constipation Sodium Chloride (Flush - Normal Saline) 10 ml IVF PRN PRN PRN Reason: Saline Flush Last Admin: 09/30/18 08:40 Dose: 10 ml
[2018-09-30] MEDS ORDERED: Furosemide 40 MG TAB PO PRN (13:10)
[2018-09-30] MEDS: ALPRAZolam 0.25 MG TAB PO PRN (16:40)
[2018-09-30] MEDS: Sucralfate 1 GM TAB PO SCH ×2 (16:41→20:12)
[2018-09-30 17:32] LABS: Troponin I 2.413 ng/mL (< 0.028)
[2018-09-30] MEDS ORDERED: Nitroglycerin 0.4 MG TAB (25 Tab Bottle) ONE (17:35)
[2018-09-30] MEDS: Ketorolac Tromethamine 30 MG/ML VIAL IVP PRN (18:06)
[2018-09-30 20:03] LABS: Critical Call Chem Troponin I RESULT DECREASING; Troponin I 2.389 ng/mL (< 0.028)
[2018-09-30] MEDS: clonazePAM 0.5 MG TAB PO SCH (20:09)
[2018-09-30 23:10] LABS: Critical Call Chem Troponin I RESULT DECREASING
[2018-10-01] MEDS: Acetaminophen/Codeine 30-300mg Tablet PO PRN ×4 (03:56→23:26)
[2018-10-01] MEDS: Arformoterol 15 MCG/2 ML NEB NEB SCH ×2 (08:35→19:27)
[2018-10-01] MEDS: Furosemide 40 MG TAB PO SCH (09:33)
[2018-10-01] MEDS: Sucralfate 1 GM TAB PO SCH ×4 (09:33→23:13)
[2018-10-01] MEDS: Potassium Chloride 20 MEQ TAB PO SCH (09:33)
[2018-10-01] MEDS: Apixaban 5 MG TAB PO SCH ×2 (09:35→20:44)
[2018-10-01] MEDS: DULoxetine 30 MG CAP PO SCH (09:36)
[2018-10-01] MEDS: Estradiol 1 MG TAB PO SCH (09:36)
[2018-10-01] MEDS: busPIRone HCl 10 MG TAB PO SCH ×2 (09:36→20:44)
[2018-10-01] MEDS: Famotidine 20 MG TAB PO SCH ×2 (09:37→20:44)
[2018-10-01] MEDS: Gabapentin 300 MG CAP PO SCH ×3 (09:37→20:44)
[2018-10-01] MEDS: Nystatin Powder 15 GM BOT TOP SCH ×2 (09:39→23:14)
--- NOTE | 2018-10-01 10:33 | PDOC.PN ---
- Subjective Encounter Start Date: 10/01/18 Encounter Start Time: 10:10 Patient seen and examined. No new complaints. No overnight events pt has left side chest pain and her troponin is elevated - Objective Resuscitation Status - Order Detail: 09/25/18 21:50 Resuscitation Status Routine Resuscitation Status: FULL: Full Resuscitation MAR Reviewed: Yes Vital Signs & Weight: Vital Signs (12 hours) Temp Pulse Resp Pulse Ox 10/01/18 09:36 93 10/01/18 08:35 93 23 H 93 L 10/01/18 08:00 95 10/01/18 07:10 98.9 F 10/01/18 04:00 98.0 F 10/01/18 00:00 97.6 F Weight Weight 293 lb 8 oz Most Recent Monitor Data Heart Rate from ECG 99 NIBP 125/84 NIBP BP-Mean 97 Respiration from ECG 25 SpO2 96 I&O: 09/30/18 10/01/18 10/02/18 06:59 06:59 06:59 Intake Total 600 3574 Output Total 700 7825 Balance -100 -4251 Result Diagrams: 09/29/18 04:42 09/29/18 04:42 EKG Reviewed by me: Yes Phys Exam - Physical Examination Constitutional: NAD HEENT: PERRLA, moist MMs, sclera anicteric Neck: no JVD, supple Respiratory: no wheezing, no rales, no rhonchi Cardiovascular: RRR, no significant murmur, no rub Gastrointestinal: soft, non-tender, no distention, positive bowel sounds Musculoskeletal: no edema, pulses present Neurological: non-focal, normal sensation Lymphatic: no nodes Psychiatric: normal affect, A&O x 3 Skin: no rash, normal turgor Dx/Plan (1) Atrial fibrillation with RVR Code(s): I48.91 - UNSPECIFIED ATRIAL FIBRILLATION Status: Acute Comment: (2) HTN (hypertension) Code(s): I10 - ESSENTIAL (PRIMARY) HYPERTENSION Status: Chronic Qualifiers: Hypertension type: essential hypertension Qualified Code(s): I10 - Essential (primary) hypertension (3) Chronic stage c diastolic heart failure Code(s): I50.32 - CHRONIC DIASTOLIC (CONGESTIVE) HEART FAILURE Status: Chronic (4) Chronic respiratory failure with hypoxia, on home O2 therapy Code(s): J96.11 - CHRONIC RESPIRATORY FAILURE WITH HYPOXIA; Z99.81 - DEPENDENCE ON SUPPLEMENTAL OXYGEN Status: Chronic (5) Morbid obesity with BMI of 45.0-49.9, adult Code(s): E66.01 - MORBID (SEVERE) OBESITY DUE TO EXCESS CALORIES; Z68.42 - BODY MASS INDEX (BMI) 45.0-49.9, ADULT Status: Chronic (6) Anxiety and depression Code(s): F41.9 - ANXIETY DISORDER, UNSPECIFIED; F32.9 - MAJOR DEPRESSIVE DISORDER, SINGLE EPISODE, UNSPECIFIED Status: Chronic (7) COPD (chronic obstructive pulmonary disease) Status: Chronic (8) Type [address] elevation Code(s): I21.A1 - MYOCARDIAL INFARCTION TYPE 2 Status: Acute - Plan cont current plan of care * cardiology evaluation * medication reviewed as below * symptomatic treatment * overall stable * further plan based on cardiology recommendation. Review of Systems - Review of Systems ENT: negative: Ear Pain, Ear Discharge, Nose Pain, Nose Discharge, Nose Congestion, Mouth Pain, Mouth Swelling, Throat Pain, Throat Swelling, Other Respiratory: negative: Cough, Dry, Shortness of Breath, Hemoptysis, SOB with Excertion, Pleuritic Pain, Sputum, Wheezing Cardiovascular: chest pain. negative: palpitations, orthopnea, paroxysmal nocturnal dyspnea, edema, light headedness, other Gastrointestinal: negative: Nausea, Vomiting, Abdominal Pain, Diarrhea, Constipation, Melena, Hematochezia, Other Genitourinary: negative: Dysuria, Frequency, Incontinence, Hematuria, Retention , Other Musculoskeletal: negative: Neck Pain, Shoulder Pain, Arm Pain, Back Pain, Hand Pain, Leg Pain, Foot Pain, Other - Medications/Allergies Allergies/Adverse Reactions: Allergies Allergy/AdvReac Type Severity Reaction Status Date / Time No Known Allergies Allergy Verified 09/03/18 18:04 Medications: Current Medications Acetaminophen (Tylenol) 650 mg PO Q4H PRN PRN Reason: Headache/Fever/Mild Pain (1-3) Last Admin: 09/28/18 09:43 Dose: 650 mg Acetaminophen/Codeine Phosphate (Tylenol #3) 1 tab PO Q4H PRN PRN Reason: Mild Pain (1-3) Last Admin: 10/01/18 03:56 Dose: 1 tab Acetaminophen/Codeine Phosphate (Tylenol #3) 2 tab PO Q4H PRN PRN Reason: Moderate Pain (4-6) Last Admin: 10/01/18 09:34 Dose: 2 tab Albuterol/Ipratropium (Duoneb) 3 ml NEB Q6H PRN PRN Reason: SOB &/or Wheezing Last Admin: 09/29/18 07:07 Dose: 3 ml Alprazolam (Xanax) 0.25 mg PO BIDPRN PRN PRN Reason: Anxiety Last Admin: 09/30/18 16:40 Dose: 0.25 mg Apixaban (Eliquis) 5 mg PO BID [facility] Last Admin: 10/01/18 09:35 Dose: 5 mg Arformoterol Tartrate (Brovana) 15 mcg NEB BID-RT [facility] Last Admin: 10/01/18 08:35 Dose: 15 mcg Benzonatate (Tessalon) 100 mg PO Q6H PRN PRN Reason: Cough Bisacodyl (Dulcolax) 10 mg IN DAILYPRN PRN PRN Reason: Constipation Buspirone HCl (Buspar) 10 mg PO BID [facility] Last Admin: 10/01/18 09:36 Dose: 10 mg Calcium Carbonate (Tums) 1,000 mg PO Q4H PRN PRN Reason: Heartburn or Indigestion Last Admin: 09/30/18 14:03 Dose: 1,000 mg Clonazepam (Klonopin) 2 mg PO HS [facility] Last Admin: 09/30/18 20:09 Dose: 2 mg Cyclobenzaprine HCl (Flexeril) 10 mg PO TIDPRN PRN PRN Reason: Muscle Spasm Last Admin: 09/28/18 22:02 Dose: 10 mg Diltiazem HCl (Cardizem Cd) 240 mg PO DAILY [facility] Last Admin: 10/01/18 09:36 Dose: 240 mg Duloxetine HCl (Cymbalta) 30 mg PO DAILY [facility] Last Admin: 10/01/18 09:36 Dose: 30 mg Estradiol (Estrace) 1 mg PO DAILY [facility] Last Admin: 10/01/18 09:36 Dose: 1 mg Famotidine (Pepcid) 20 mg PO BID [facility] Last Admin: 10/01/18 09:37 Dose: 20 mg Furosemide (Lasix) 40 mg PO DAILY-AC [facility] Last Admin: 10/01/18 09:33 Dose: 40 mg Furosemide (Lasix) 40 mg PO PRN PRN PRN Reason: SOB &/or Wheezing Gabapentin (Neurontin) 300 mg PO TID [facility] Last Admin: 10/01/18 09:37 Dose: 300 mg Ketorolac Tromethamine (Toradol) 30 mg IVP Q6H PRN PRN Reason: . Stop: 10/05/18 17:58 Last Admin: 09/30/18 18:06 Dose: 30 mg Loperamide HCl (Imodium) 2 mg PO PRN PRN PRN Reason: Diarrhea/Loose Stools Non-Formulary Medication (Vortioxetine Hydrobromide [Trintellix]) 10 mg PO DAILY [facility] Nystatin (Mycostatin Powder) 0 gm TOP BID [facility] Last Admin: 10/01/18 09:39 Dose: 1 applic Pantoprazole Sodium (Protonix) 40 mg PO DAILY [facility] Stop: 10/30/18 09:01 Last Admin: 10/01/18 09:37 Dose: 40 mg Potassium Chloride (K-Dur) 20 meq PO QAM-WM [facility] Last Admin: 10/01/18 09:33 Dose: 20 meq Senna/Docusate Sodium (Senokot S) 2 tab PO BIDPRN PRN PRN Reason: Constipation Last Admin: 09/30/18 20:12 Dose: 2 tab Sodium Chloride (Flush - Normal Saline) 10 ml IVF PRN PRN PRN Reason: Saline Flush Last Admin: 09/30/18 20:13 Dose: 10 ml Sucralfate (Carafate) 1 gm PO [facility] Stop: 10/14/18 11:31 Last Admin: 10/01/18 09:33 Dose: 1 gm
[2018-10-01] MEDS: Ketorolac Tromethamine 30 MG/ML VIAL IVP PRN (15:25)
--- NOTE | 2018-10-01 15:28 | CON ---
DATE OF CONSULTATION: 10/01/2018 INDICATION FOR CONSULTATION: Short note. HISTORY OF PRESENT ILLNESS: A 53-year-old female with a history of atrial fibrillation, who underwent ablation yesterday, has been complaining of some chest discomfort. Cardiac enzymes are slightly indeterminate, which is not an unusual finding, status post an ablation for atrial fibrillation. Also, her chest discomfort is somewhat positional in nature, and also when she takes a deep breath, its gets worse. She describes her pain as being 7/10; however, she has no EKG changes to indicate ischemia, and she appears to be very comfortable. At this time, I would continue with the nonsteroidals or colchicine. She most likely has some mild pericarditis, and hopefully, this will resolve. As far as her other problems, please refer to the note which was recently dictated by Dr. Jim and Dr. Ford, and she has had no other significant problems associated with this event, except for the chest discomfort. She underwent a very successful ablation. Her blood pressure is 125/84, heart rate is in the 90s and shows a sinus rhythm, respiratory rate is 24. LABORATORY DATA: Shows a troponin I which was 2.4, has now actually decreased down to 1.9, and again, this is associated with her recent ablation for the atrial fibrillation. PAST MEDICAL HISTORY: Please refer to the notes already dictated. SOCIAL HISTORY: Please refer to the notes already dictated. FAMILY HISTORY: Please refer to the notes already dictated. REVIEW OF SYSTEMS: Please refer to the notes already dictated. MEDICATIONS: Please refer to the notes already dictated. ALLERGIES: PLEASE REFER TO THE NOTES ALREADY DICTATED. PHYSICAL EXAMINATION: GENERAL: Reveals a well-developed, well-nourished female, in no acute distress at this time despite she has chest pain 7/10. She appears to be very comfortable. HEENT: Unremarkable. CHEST: Clear to auscultation without rales, rhonchi, or wheezing. CARDIOVASCULAR: Reveals a regular rate and rhythm. There are no significant murmurs, heaves, thrills, bruits, or rubs. ABDOMEN: Shows obesity. EXTREMITIES: Showed no clubbing, cyanosis, or edema. SKIN: Warm and dry. ASSESSMENT AND PLAN: At this time, I would continue her medications. We will add colchicine. She has been given 1 dose of IV Toradol, which she did have some improvement. We will start her on colchicine and see whether or not this will alleviate the symptoms, and hopefully, she can be discharged home later today or tomorrow. Job ID: [id number]
--- NOTE | 2018-10-01 15:57 | EKG ---
Test Reason : SOB AND CHEST PAIN Blood Pressure : / mmHG Vent. Rate : 110 BPM Atrial Rate : 107 BPM P-R Int : 000 ms QRS Dur : 074 ms QT Int : 318 ms P-R-T Axes : 000 020 014 degrees QTc Int : 430 ms Atrial fibrillation with rapid ventricular response Low voltage QRS Nonspecific ST and T wave abnormality Abnormal ECG Confirmed by PABLO MODI, PATTI ([id number]), business editor DEDRA AMARO ([id number] on 10/01/2018 3:57:22 PM Referred By: Confirmed By:PATTI SHAH MD
[2018-10-01] MEDS: Colchicine 0.3 MG TAB PO SCH (20:46)
[2018-10-01] MEDS: clonazePAM 0.5 MG TAB PO SCH (20:46)
[2018-10-02] MEDS: Acetaminophen/Codeine 30-300mg Tablet PO PRN (06:03)
[2018-10-02 07:11] VITALS: TEMP 97
--- NOTE | 2018-10-02 08:14 | PDOC.PN ---
- Subjective Encounter Start Date: 10/02/18 Encounter Start Time: 07:55 Patient seen and examined. No new complaints. No overnight events - Objective Resuscitation Status - Order Detail: 09/25/18 21:50 Resuscitation Status Routine Resuscitation Status: FULL: Full Resuscitation MAR Reviewed: Yes Vital Signs & Weight: Vital Signs (12 hours) Temp Pulse Ox 10/02/18 07:17 93 L 10/02/18 07:10 97.0 F L 10/02/18 04:00 98.0 F 10/02/18 00:00 98.3 F Weight Weight 298 lb Most Recent Monitor Data Heart Rate from ECG 100 NIBP 125/88 NIBP BP-Mean 100 Respiration from ECG 26 SpO2 96 I&O: 10/01/18 10/02/18 10/03/18 06:59 06:59 06:59 Intake Total 3574 800 Output Total 7825 Balance -4251 800 Result Diagrams: 09/29/18 04:42 09/29/18 04:42 EKG Reviewed by me: Yes Phys Exam - Physical Examination Constitutional: NAD HEENT: PERRLA, moist MMs, sclera anicteric Neck: no JVD, supple Respiratory: no wheezing, no rales, no rhonchi Cardiovascular: RRR, no significant murmur, no rub Gastrointestinal: soft, non-tender, no distention, positive bowel sounds Musculoskeletal: no edema, pulses present Neurological: non-focal, normal sensation Lymphatic: no nodes Psychiatric: normal affect, A&O x 3 Skin: no rash, normal turgor Dx/Plan (1) Atrial fibrillation with RVR Code(s): I48.91 - UNSPECIFIED ATRIAL FIBRILLATION Status: Acute Comment: (2) HTN (hypertension) Code(s): I10 - ESSENTIAL (PRIMARY) HYPERTENSION Status: Chronic Qualifiers: Hypertension type: essential hypertension Qualified Code(s): I10 - Essential (primary) hypertension (3) Chronic stage c diastolic heart failure Code(s): I50.32 - CHRONIC DIASTOLIC (CONGESTIVE) HEART FAILURE Status: Chronic (4) Chronic respiratory failure with hypoxia, on home O2 therapy Code(s): J96.11 - CHRONIC RESPIRATORY FAILURE WITH HYPOXIA; Z99.81 - DEPENDENCE ON SUPPLEMENTAL OXYGEN Status: Chronic (5) Morbid obesity with BMI of 45.0-49.9, adult Code(s): E66.01 - MORBID (SEVERE) OBESITY DUE TO EXCESS CALORIES; Z68.42 - BODY MASS INDEX (BMI) 45.0-49.9, ADULT Status: Chronic (6) Anxiety and depression Code(s): F41.9 - ANXIETY DISORDER, UNSPECIFIED; F32.9 - MAJOR DEPRESSIVE DISORDER, SINGLE EPISODE, UNSPECIFIED Status: Chronic (7) COPD (chronic obstructive pulmonary disease) Status: Chronic (8) Type [address] elevation Code(s): I21.A1 - MYOCARDIAL INFARCTION TYPE 2 Status: Acute - Plan cont current plan of care * medication reviewed as below * symptomatic treatment * see discharge summery * add colchicine. Review of Systems - Review of Systems ENT: negative: Ear Pain, Ear Discharge, Nose Pain, Nose Discharge, Nose Congestion, Mouth Pain, Mouth Swelling, Throat Pain, Throat Swelling, Other Respiratory: negative: Cough, Dry, Shortness of Breath, Hemoptysis, SOB with Excertion, Pleuritic Pain, Sputum, Wheezing Cardiovascular: negative: chest pain, palpitations, orthopnea, paroxysmal nocturnal dyspnea, edema, light headedness, other Gastrointestinal: negative: Nausea, Vomiting, Abdominal Pain, Diarrhea, Constipation, Melena, Hematochezia, Other Genitourinary: negative: Dysuria, Frequency, Incontinence, Hematuria, Retention , Other Musculoskeletal: negative: Neck Pain, Shoulder Pain, Arm Pain, Back Pain, Hand Pain, Leg Pain, Foot Pain, Other - Medications/Allergies Allergies/Adverse Reactions: Allergies Allergy/AdvReac Type Severity Reaction Status Date / Time No Known Allergies Allergy Verified 09/03/18 18:04 Medications: Current Medications Acetaminophen (Tylenol) 650 mg PO Q4H PRN PRN Reason: Headache/Fever/Mild Pain (1-3) Last Admin: 09/28/18 09:43 Dose: 650 mg Acetaminophen/Codeine Phosphate (Tylenol #3) 1 tab PO Q4H PRN PRN Reason: Mild Pain (1-3) Last Admin: 10/02/18 06:03 Dose: 1 tab Acetaminophen/Codeine Phosphate (Tylenol #3) 2 tab PO Q4H PRN PRN Reason: Moderate Pain (4-6) Last Admin: 10/01/18 23:26 Dose: 2 tab Albuterol/Ipratropium (Duoneb) 3 ml NEB Q6H PRN PRN Reason: SOB &/or Wheezing Last Admin: 09/29/18 07:07 Dose: 3 ml Alprazolam (Xanax) 0.25 mg PO BIDPRN PRN PRN Reason: Anxiety Last Admin: 09/30/18 16:40 Dose: 0.25 mg Apixaban (Eliquis) 5 mg PO BID [facility] Last Admin: 10/01/18 20:44 Dose: 5 mg Arformoterol Tartrate (Brovana) 15 mcg NEB BID-RT [facility] Last Admin: 10/01/18 19:27 Dose: 15 mcg Benzonatate (Tessalon) 100 mg PO Q6H PRN PRN Reason: Cough Bisacodyl (Dulcolax) 10 mg DC DAILYPRN PRN PRN Reason: Constipation Buspirone HCl (Buspar) 10 mg PO BID [facility] Last Admin: 10/01/18 20:44 Dose: 10 mg Calcium Carbonate (Tums) 1,000 mg PO Q4H PRN PRN Reason: Heartburn or Indigestion Last Admin: 09/30/18 14:03 Dose: 1,000 mg Clonazepam (Klonopin) 2 mg PO HS [facility] Last Admin: 10/01/18 20:46 Dose: 2 mg Colchicine (Colcrys) 0.3 mg PO BID [facility] Last Admin: 10/01/18 20:46 Dose: 0.3 mg Cyclobenzaprine HCl (Flexeril) 10 mg PO TIDPRN PRN PRN Reason: Muscle Spasm Last Admin: 09/28/18 22:02 Dose: 10 mg Diltiazem HCl (Cardizem Cd) 240 mg PO DAILY [facility] Last Admin: 10/01/18 09:36 Dose: 240 mg Duloxetine HCl (Cymbalta) 30 mg PO DAILY [facility] Last Admin: 10/01/18 09:36 Dose: 30 mg Estradiol (Estrace) 1 mg PO DAILY [facility] Last Admin: 10/01/18 09:36 Dose: 1 mg Famotidine (Pepcid) 20 mg PO BID [facility] Last Admin: 10/01/18 20:44 Dose: 20 mg Furosemide (Lasix) 40 mg PO DAILY-AC [facility] Last Admin: 10/01/18 09:33 Dose: 40 mg Furosemide (Lasix) 40 mg PO PRN PRN PRN Reason: SOB &/or Wheezing Gabapentin (Neurontin) 300 mg PO TID [facility] Last Admin: 10/01/18 20:44 Dose: 300 mg Ketorolac Tromethamine (Toradol) 30 mg IVP Q6H PRN PRN Reason: . Stop: 10/05/18 17:58 Last Admin: 10/01/18 15:25 Dose: 30 mg Loperamide HCl (Imodium) 2 mg PO PRN PRN PRN Reason: Diarrhea/Loose Stools Non-Formulary Medication (Vortioxetine Hydrobromide [Trintellix]) 10 mg PO DAILY [facility] Nystatin (Mycostatin Powder) 0 gm TOP BID [facility] Last Admin: 10/01/18 23:14 Dose: Not Given Pantoprazole Sodium (Protonix) 40 mg PO DAILY [facility] Stop: 10/30/18 09:01 Last Admin: 10/01/18 09:37 Dose: 40 mg Potassium Chloride (K-Dur) 20 meq PO QAM-WM [facility] Last Admin: 10/01/18 09:33 Dose: 20 meq Senna/Docusate Sodium (Senokot S) 2 tab PO BIDPRN PRN PRN Reason: Constipation Last Admin: 09/30/18 20:12 Dose: 2 tab Sodium Chloride (Flush - Normal Saline) 10 ml IVF PRN PRN PRN Reason: Saline Flush Last Admin: 09/30/18 20:13 Dose: 10 ml Sucralfate (Carafate) 1 gm PO [facility] Stop: 10/14/18 11:31 Last Admin: 10/01/18 23:13 Dose: 1 gm
[2018-10-02] MEDS: Arformoterol 15 MCG/2 ML NEB NEB SCH (08:23)
[2018-10-02] MEDS: Potassium Chloride 20 MEQ TAB PO SCH (09:07)
[2018-10-02] MEDS: Sucralfate 1 GM TAB PO SCH ×2 (09:07→11:26)
[2018-10-02] MEDS: Furosemide 40 MG TAB PO SCH (09:07)
[2018-10-02] MEDS: Apixaban 5 MG TAB PO SCH (09:08)
[2018-10-02] MEDS: busPIRone HCl 10 MG TAB PO SCH (09:08)
[2018-10-02] MEDS: DULoxetine 30 MG CAP PO SCH (09:08)
[2018-10-02] MEDS: Gabapentin 300 MG CAP PO SCH ×2 (09:09→14:07)
[2018-10-02] MEDS: Estradiol 1 MG TAB PO SCH (09:09)
[2018-10-02] MEDS: Famotidine 20 MG TAB PO SCH (09:09)
[2018-10-02] MEDS: Nystatin Powder 15 GM BOT TOP SCH (11:25)
[2018-10-02] MEDS: Colchicine 0.3 MG TAB PO SCH (11:26)
--- NOTE | 2018-10-02 11:44 | PDOC.CTH ---
Cardiology Progress Note - Subjective Pt. seen and eval. by me. Her chest pain has resolved. She feels great. No arrhythmias. - Objective Vital Signs Temp Pulse Resp Pulse Ox 10/02/18 10:27 97.0 F L 10/02/18 09:08 98 10/02/18 08:23 98 17 95 10/02/18 07:17 93 L 10/02/18 07:10 97.0 F L 10/02/18 04:00 98.0 F 10/02/18 00:00 98.3 F Weight 297 lb 10/01/18 10/02/18 10/03/18 06:59 06:59 06:59 Intake Total 3574 800 Output Total 7825 Balance -4251 800 - Physical Examination General/Neuro: alert & oriented x3 Neck: no JVD present Lungs: CTA Heart: RRR Abdomen: no HSM, soft - Labs Result Diagrams: 09/29/18 04:42 09/29/18 04:42 Troponin/CKMB Troponin I 1.930 ng/mL (< 0.028) H* 09/30/18 22:27 - Assessment/Plan 1. Highly symptomatic persistent atrial fibrillation -s/p recent KOTA/cardioversion in August 2018 and failed flecainide due to poor tolerance and side effects. -s/p PVI ablation on 09/29/18, remains in SR since ablation. Off dilt gtt. 2. Oral anticoagulation on Eliquis for a CHADS-VASc score of 3 (female gender, diabetes, and hypertension) -tolerating without bleeding issues. -no bleeding issues seen with Eliquis 5mg PO BID resumed last night 3. Type 2 diabetes. 4. Morbid obesity. - BMI is 45. - highly encourage drastic weight loss 5. Hypertension -borderline hypotensive this AM. Continue to monitor. 6. Chest pain post ablation: probably mild pericarditis. This resolved with colchicine. Continue for 2 weeks and then d/c. She is to f/u with Dr. Jim in 1-2 weeks. Okay to d/c to home.
--- NOTE | 2018-10-03 07:57 | DIS ---
DATE OF ADMISSION: 09/25/2018 DATE OF DISCHARGE: 10/02/2018 ADDENDUM: Please see my discharge summary dictated on September 30, 2018. Day before, on September 29, the patient had ablation procedure by Dr. Ford for atrial fibrillation. Subsequently, the patient remained in sinus rhythm without any further AFib. Next day when we discharged her, at that time, the patient started complaining of chest pain and that is why we have to hold her discharge because there was no ride available as well. We did serial cardiac enzymes, and her troponin was elevated in non-STEMI range. We consulted Cardiology and Electrophysiology, and they recommended that this is normal after ablation. Dr. Hernandez was thinking that this could be related with pericarditis and she recommended to start colchicine, which was prescribed on the day of discharge. By the time of discharge, the patient was not having any chest pain, palpitation, shortness of breath, and she is stable enough to be discharged today. All new medication prescription will be sent to her pharmacy and she will pick it up. The patient is seen and examined at bedside today. Please see my progress note from today for further detail. Job ID: [id number]
--- NOTE | 2018-10-03 22:29 | EKG ---
Test Reason : STAT Blood Pressure : / mmHG Vent. Rate : 088 BPM Atrial Rate : 088 BPM P-R Int : 194 ms QRS Dur : 066 ms QT Int : 360 ms P-R-T Axes : 080 039 063 degrees QTc Int : 435 ms Normal sinus rhythm Low voltage QRS Septal infarct , age undetermined Abnormal ECG When compared with ECG of 25-SEP-2018 16:48, (Unconfirmed) Sinus rhythm has replaced Atrial fibrillation Septal infarct is now Present Nonspecific T wave abnormality no longer evident in Inferior leads Nonspecific T wave abnormality now evident in Lateral leads Confirmed by Ba PABLO ([id number]) on 10/03/2018 10:29:41 PM Referred By: [facility] Confirmed By:Ba PABLO
--- NOTE | 2018-10-03 22:40 | EKG ---
Test Reason : Blood Pressure : / mmHG Vent. Rate : 091 BPM Atrial Rate : 091 BPM P-R Int : 190 ms QRS Dur : 082 ms QT Int : 356 ms P-R-T Axes : 082 051 073 degrees QTc Int : 437 ms Normal sinus rhythm Low voltage QRS Borderline ECG When compared with ECG of 29-SEP-2018 19:37, (Unconfirmed) Criteria for Septal infarct are no longer Present T wave inversion no longer evident in Anterior leads Confirmed by Ba PABLO ([id number]) on 10/03/2018 10:40:08 PM Referred By: RANJIT Confirmed By:Ba PABLO
== END 2018-10-02 15:49 | disposition home or self-care (01) | DRG 274 ==
LOC: ERS 16:18 → ERHOLD 19:03 → IMCU/EMU 20:51
PROVIDERS: ADMIT Family Medicine; ATTEND Family Medicine
PROC: 02583ZZ Destruction of Conduction Mechanism, Percutaneous Approach (ICD-10-PCS; principal; 2018-09-29)
PROC: 02K83ZZ Map Conduction Mechanism, Percutaneous Approach (ICD-10-PCS; 2018-09-29)
PROC: 4A023FZ Measurement of Cardiac Rhythm, Percutaneous Approach (ICD-10-PCS; 2018-09-29)
PROC: 4A0234Z Measurement of Cardiac Electrical Activity, Percutaneous Approach (ICD-10-PCS; 2018-09-29)
DX: I48.1 Persistent atrial fibrillation (principal); J96.11 Chronic respiratory failure with hypoxia; I31.9 Disease of pericardium, unspecified; I50.32 Chronic diastolic (congestive) heart failure; Z68.42 Body mass index [BMI] 45.0-49.9, adult; I11.0 Hypertensive heart disease with heart failure; E66.01 Morbid (severe) obesity due to excess calories; J44.9 Chronic obstructive pulmonary disease, unspecified; E11.9 Type 2 diabetes mellitus without complications; G89.29 Other chronic pain; M54.5 Low back pain; M19.90 Unspecified osteoarthritis, unspecified site; F41.8 Other specified anxiety disorders; Z99.81 Dependence on supplemental oxygen; Z79.01 Long term (current) use of anticoagulants; Z98.84 Bariatric surgery status; Z87.891 Personal history of nicotine dependence
CPT/HCPCS: 36415; 36416; 71045; 76942; 80048; 80053; 80162; 81001; 83735; 83880; 84443; 84484; 85025; 85347; 85610; 85730; 92960; 93005; 93010; 93613; 93623; 93656; 93657; 93662; 94640; 96365; 96366; 96375; C1731; C1732; C1759; C1769; J1644; J1885; J1940; J2001; J2250; J2704; J2720; J3010; J3490; J7620

== ENCOUNTER 2019-01-16 18:24 | Emergency (ER) | payer MEDICARE ==
[2019-01-16 19:07] LABS: #Eosinphils 0.1 thou/uL (0.0-0.7); #Lymphocytes 1.6 thou/uL (1.20-3.40); #Monocytes 0.6 thou/uL (0.11-0.59); #Neutrophils 5.9 thou/uL (1.40-6.50); %Basophils 0.2 % (0.0-1.0); %Eosinophils 1.1 % (0.0-10.0); %Lymphocytes 19.8 % (21.0-51.0); %Monocytes 7.4 % (0.0-10.0); %Neutrophils 71.5 % (42.0-75.0); Hemoglobin 12.5 g/dL (12.0-16.0); Mean Corpuscular Hemoglobin 29.9 pg (27.0-31.0); Mean Corpuscular Volume 88.1 fL (78.0-98.0); Mean Platelet Volume 8.3 fL (7.4-10.4); Platelet Count 223 thou/uL (130-400); RBC Distribution Width 13.9 % (11.5-14.5); Red Blood Cell (RBC) Count 4.18 mill/uL (4.20-5.40); White Blood Cell (WBC) Count 8.2 thou/uL (4.8-10.8)
[2019-01-16 19:27] LABS: ALT (SGPT) 7 U/L (8-55); AST (SGOT) 10 U/L (5-34); Albumin 3.6 g/dL (3.5-5.0); Alkaline Phosphatase 128 U/L (40-150); Anion Gap 17 mmol/L (10-20); BUN (Urea Nitrogen) 15 mg/dL (9.8-20.1); Bilirubin, Total 0.4 mg/dL (0.2-1.2); CK (CPK) 35 U/L (29-168); Calc. Creatinine Clearance 0 mL/min (70-130); Calcium 9.2 mg/dL (7.8-10.44); Carbon Dioxide 22 mmol/L (22-29); Chloride 104 mmol/L (98-107); Estimated GFR-MDRD 72; Globulin 2.3 g/dL (2.4-3.5); Glucose 148 mg/dL (70-105); Protein, Total 5.9 g/dL (6.0-8.3); Sodium 139 mmol/L (136-145)
--- NOTE | 2019-01-16 19:35 | RAD ---
Portable frontal chest radiograph: 01/16/2019 COMPARISON: 09/25/2018 HISTORY: Short of breath FINDINGS: Lungs are clear. Heart and mediastinal contours appear within normal limits. IMPRESSION: No acute findings.
--- NOTE | 2019-01-16 19:40 | ULT ---
Bilateral lower extremity venous Doppler ultrasound: 01/16/2019 COMPARISON: None HISTORY: Edema, swelling, assess for DVT TECHNIQUE: Multiplanar grayscale sonographic imaging of the venous structures of bilateral lower extr emities obtained with color flow and spectral analysis FINDINGS: The bilateral common femoral vein, greater saphenous vein, profunda femoral vein, femoral v ein, and popliteal vein appear patent. Normal blood flow, augmentation, and compression within the deep venous system bilaterally. No evidence for DVT on either side. Right posterior tibial vein is unremarkable. Visualized portions of the left posterior tibial vein ar e patent. The left posterior tibial vein could not be visualized in its entirety. IMPRESSION: No evidence for deep venous thrombosis of either lower extremity.
--- NOTE | 2019-01-18 15:45 | EKG ---
Test Reason : Blood Pressure : / mmHG Vent. Rate : 083 BPM Atrial Rate : 083 BPM P-R Int : 196 ms QRS Dur : 086 ms QT Int : 390 ms P-R-T Axes : 084 026 048 degrees QTc Int : 458 ms Normal sinus rhythm Low voltage QRS Borderline ECG Confirmed by PARVIN BOWSER MD ([id number]), medical editor NIKKI PENNINGTON ([id number]) on 01/18/2019 3:45:05 PM Referred By: Confirmed By:PARVIN BOWSER MD
== END 2019-01-16 20:35 | disposition home or self-care (01) ==
LOC: ERS 18:24
DX: R60.0 Localized edema (principal); I11.0 Hypertensive heart disease with heart failure; I50.9 Heart failure, unspecified; I48.91 Unspecified atrial fibrillation; E11.9 Type 2 diabetes mellitus without complications; K21.9 Gastro-esophageal reflux disease without esophagitis; J44.9 Chronic obstructive pulmonary disease, unspecified; F41.9 Anxiety disorder, unspecified; F32.9 Major depressive disorder, single episode, unspecified; Z87.891 Personal history of nicotine dependence; Z79.899 Other long term (current) drug therapy
CPT/HCPCS: 71045; 80053; 82550; 83880; 84484; 85025; 93005; 93970; 94760